=== PATIENT | female | born 1975 | race Caucasian/White ===

== ENCOUNTER 2023-01-02 03:04 | Emergency (ER) | payer OTHER, SELFPAY ==
[2023-01-02 03:09] VITALS: BP 188/119; PULSE 75; RESP 16; TEMP 35.9; O2SAT 100
--- NOTE | 2023-01-02 03:14 | ED.BACK ---
HPI - Back Pain/Injury General Time Seen by Provider: 03:15 Date Seen: 01/02/23 Chief Complaint: Back Injury/Pain Stated Complaint: back spasm, kidney pain Time Seen by Provider: 01/02/23 03:14 Source: patient and RN notes reviewed Mode of arrival: ambulatory Limitations: no limitations History of Present Illness HPI Narrative: 47-year-old female who comes in today with flank pain/back pain. No known injury. Started shortly prior to coming emergency department. Left-sided, radiates to the left lower quadrant. Nausea without vomiting. No chest pain breathing difficulty, denies fever or urinary symptoms. Distant history of a kidney stone. Related Data Allergies Allergy/AdvReac Type Severity Reaction Status Date / Time nitrofurantoin Allergy Severe Verified 01/02/23 04:26 [From Macrobid] [facility] Social History Non-prescribed substance use: denies use service: No Exam Narrative: Exam Narrative: General: Well-developed and well-nourished, appears uncomfortable Head: Atraumatic and normocephalic Eyes: Pupils are equal reactive, extraocular motions intact, conjunctiva clear ENT: External nose and ears are normal, posterior pharynx without erythema or exudate Neck: No midline cervical tenderness, full spontaneous range of motion the neck, trachea midline, no adenopathy Heart: Regular rate and rhythm no murmurs or thrills Lungs: Clear to auscultation bilaterally without wheezes or crackles Abdomen: Soft, nontender, nondistended with active bowel sounds. Left CVA tenderness. Musculoskeletal: No tenderness, deformity, or edema Neurologic: Awake, alert, and oriented x3, no gross focal neurologic deficits, cranial nerves intact as tested Psych: Mood and affect are appropriate Skin: No rashes Const: Vital Signs, click to edit/add: Vital Signs - 24 hr 01/02/23 03:09 01/02/23 04:26 Temperature 96.6 F L Pulse Rate [Left P ulse Oximeter] 75 68 Respiratory Rate 16 18 Blood Pressure [Ri ght Upper Arm] 188/119 H 178/103 H Pulse Oximetry 100 98 Oxygen Delivery Me thod Room Air Room Air Course Course ED Course: Patient seen and examined, prior records reviewed. Patient presents today with left-sided flank pain, accompanied by nausea. Appears uncomfortable on initial exam. CVA tenderness. Symptoms are most consistent with kidney stone, consider aortic pathology although less likely, also consider musculoskeletal pain. Labs and CT scan ordered along with Toradol and Zofran. Reevaluation(s) Time of Reevaluation #1: 03:46 Reevaluation #1: Labs independently interpreted by me with normal CBC. CT scan of abdomen pelvis independently interpreted by me with mild hydronephrosis and hydroureter on the left, 4 mm stone of the distal ureter near the UVJ. Time of Reevaluation #2: 04:34 Reevaluation #2: Urinalysis does not demonstrate any findings infection. Patient is stable for discharge with outpatient follow-up. Vital Signs Vital signs: Initial Vital Signs Temperature 96.6 F L 01/02/23 03:09 Temperature Source Temporal Artery Scan 01/02/23 03:09 Pulse Rate 75 01/02/23 03:09 Pulse Rhythm Regular 01/02/23 03:09 Respiratory Rate 16 01/02/23 03:09 Blood Pressure 188/119 H 01/02/23 03:09 Blood Pressure Mean 142 H 01/02/23 03:09 Blood Pressure Position Sitting 01/02/23 03:09 Pulse Oximetry 100 01/02/23 03:09 Oxygen Delivery Method Room Air 01/02/23 03:09 Vital Signs Temperature 96.6 F L 01/02/23 03:09 Pulse Rate 75 01/02/23 03:09 Respiratory Rate 16 01/02/23 03:09 Blood Pressure 188/119 H 01/02/23 03:09 Pulse Oximetry 100 01/02/23 03:09 Oxygen Delivery Method Room Air 01/02/23 03:09 Temperature 96.6 F L 01/02/23 03:09 Pulse Rate 68 01/02/23 04:26 Respiratory Rate 18 01/02/23 04:26 Blood Pressure 178/103 H 01/02/23 04:26 Pulse Oximetry 98 01/02/23 04:26 Oxygen Delivery Method Room Air 01/02/23 04:26 Medications Administered Medications: Generic Name Dose Route Start Last Admin Trade Name Freq PRN Reason Stop Dose Admin Ketorolac Tromethamine 15 mg 01/02/23 03:20 01/02/23 03:34 Ketorolac 15 Mg/Ml Inj IVP 01/02/23 03:21 15 mg ONCE ONE Administration Ondansetron HCl 4 mg 01/02/23 03:20 01/02/23 03:34 Ondansetron 2 Mg/Ml Inj IVP 01/02/23 03:21 4 mg ONCE ONE Administration Ondansetron HCl 4 mg 01/02/23 04:14 01/02/23 04:24 Ondansetron 2 Mg/Ml Inj IVP 01/02/23 04:15 4 mg ONCE ONE Administration Oxycodone HCl 5 mg 01/02/23 04:14 01/02/23 04:24 Oxycodone 5 Mg Tablet PO 01/02/23 04:15 5 mg ONCE ONE Administration MDM - Back Pain/Injury Lab Data Labs: Lab Results 01/02/23 01/02/23 Range/Units 03:25 03:55 WBC 8.76 (4.50-11.00) K/uL RBC 4.40 (4.00-5.20) m/uL Hgb 13.9 (12.0-16.0) gm/dL Hct 40.2 (33.0-51.0) % MCV 91 (80-100) fL MCH 32 (26-34) pg MCHC 35 (32-36) gm/dL RDW Coeff of Marly 11.9 (11.5-15.5) % Plt Count 302 (140-440) K/uL Neut % (Auto) 49.3 (42.0-72.0) % Lymph % (Auto) 37.8 (20-44) % [place] % (Auto) 10.4 (0.0-11.0) % Eos % (Auto) 2.1 (0.0-7.0) % Baso % (Auto) 0.2 (0.0-3.0) % Neut # (Auto) 4.32 (1.7-7.0) K/uL Lymph # (Auto) 3.31 H (0.90-2.90) K/uL [place] # (Auto) 0.90 (0.00-0.90) K/UL Eos # (Auto) 0.18 (0.00-0.50) K/uL Baso # (Auto) 0.02 (0.00-0.30) K/uL Abs Immat Gran (auto) 0.02 (0.00-0.30) K/uL Imm/Tot Granulo (auto) 0.2 % Sodium 140 (135-149) mmol/L Potassium 3.4 L (3.6-5.1) mmol/L Chloride 101 (96-114) mmol/L Carbon Dioxide 29 (20-32) mmol/L Anion Gap 10 (7-15) mEq/L BUN 17 (5-24) mg/dL Creatinine 0.9 (0.5-1.5) mg/dL Estimated GFR 79 ml/min Glucose 123 H (60-115) mg/dL Calcium 9.5 (8.4-10.6) mg/dL Urine Color Yellow (Yellow) Urine Appearance Slightly Cloudy A (Clear) Urine pH 7.0 (5.0-8.5) Ur Specific [place] 1.020 (1.000-1.030) Urine Protein Negative (Negative) Urine Glucose (UA) Negative (Negative) Urine Ketones Negative (Negative) Urine Blood 2+ A (Negative) Urine Nitrite Negative (Negative) Urine Bilirubin Negative (Negative) Urine Urobilinogen 0.2 (0.2-1.0) Ur Leukocyte Esterase Negative (Negative) Urine RBC 25-50 A (0-2) Urine WBC 5-10 A (0-5) Ur Squamous Epith Cells Moderate A (None-Few) Urine Bacteria Few A (None) Discharge Plan Discharge Clinical Impression: Left ureteral stone Patient Disposition: Home, Self-Care Condition: Stable Instructions: Ureteral Stones (ED) Additional Instructions: Take ibuprofen 600 mg every 6 hours alternating with Tylenol 1000 mg every 6 hours for baseline pain control. Take this regularly for the next couple of days until you pass your stone. Take oxycodone as needed for severe pain, take Zofran as needed for nausea and vomiting. Drink to thirst Follow-up with urology for further evaluation treatment. [facility] [place] [facility] [phone] Activity Level: Activity as Tolerated Discharge Diet: Regular Follow Up/Referrals: SHI WYMAN DO [Primary Care Provider] - Stand Alone Forms[facility]
--- NOTE | 2023-01-02 03:20 | CRLHL7_ITS ---
For Patients: As a result of the Century Cures Act, medical imaging exams and procedure reports are released immediately into your electronic medical record. You may view this report before your referring provider. If you have questions, please contact your health care provider. INDICATION: Left flank pain. TECHNIQUE: CT abdomen and pelvis without contrast. COMPARISON: None. FINDINGS: Lower chest: Unremarkable. Liver: Normal in size and attenuation. Gallbladder and bile ducts: No stones or inflammation. No biliary ductal dilatation. Spleen: Normal in size. Adrenal glands: Normal in size. No nodules. Pancreas: Unremarkable. No mass or inflammation. Kidneys: 5 x 3 mm calculus in the left distal ureter. Mild upstream hydroureteronephrosis. Right kidney is unremarkable. GI tract: Scattered colonic diverticula without evidence of diverticulitis. No evidence of obstruction. Normal appendix. Lymph nodes: No lymphadenopathy. Vasculature: Scattered atherosclerotic calcifications. Abdominal aorta is normal in caliber. Abdominal wall/Omentum/Peritoneum: Unremarkable. No free air or significant free fluid. Pelvis: Unremarkable. Bones: Unremarkable for age. IMPRESSION: 5 x 3 mm left distal ureteral calculus with mild upstream hydroureteronephrosis. Please note that all CT scans at this facility use dose modulation, iterative reconstruction, and/or weight-based dosing when appropriate to reduce radiation dose to as low as reasonably achievable. Dictated by Krzysztof Armenta MD @ 01/02/2023 3:54:35 AM (Electronically Signed)
[2023-01-02 03:32] LABS: Basophils Absolute Auto 0.02 K/uL (0.00-0.30); Basophils Percent Auto 0.2 % (0.0-3.0); Eosinophils Absolute Auto 0.18 K/uL (0.00-0.50); Eosinophils Percent Auto 2.1 % (0.0-7.0); Hematocrit 40.2 % (33.0-51.0); Hemoglobin* 13.9 gm/dL (12.0-16.0); Immature Granulocytes Abs Auto 0.02 K/uL (0.00-0.30); Immature Granulocytes Pct Auto 0.2 %; Lymphocytes Absolute Auto 3.31 K/uL (0.90-2.90); Lymphocytes Percent Auto 37.8 % (20-44); Mean Corpuscular HGB Conc 35 gm/dL (32-36); Mean Corpuscular Hemoglobin 32 pg (26-34); Mean Corpuscular Volume 91 fL (80-100); Monocytes Percent Auto 10.4 % (0.0-11.0); Neutrophils Absolute Auto 4.32 K/uL (1.7-7.0); Neutrophils Percent Auto 49.3 % (42.0-72.0); Platelet Count* 302 K/uL (140-440); RDW Coefficient of Variation % 11.9 % (11.5-15.5); White Blood Count* 8.76 K/uL (4.50-11.00)
[2023-01-02] MEDS: ONDANSETRON 2 MG/ML inj 4 MG IVP ×2 (03:34→04:24)
[2023-01-02] MEDS: KETOROLAC 15 MG/ML inj IVP (03:34)
[2023-01-02 03:35] LABS: Slide Review Reflex No
[2023-01-02 03:43] LABS: Chloride* 101 mmol/L (96-114); Sodium* 140 mmol/L (135-149)
[2023-01-02 03:44] LABS: Potassium* 3.4 mmol/L (3.6-5.1)
[2023-01-02 03:46] LABS: Creatinine* 0.9 mg/dL (0.5-1.5); Estimated Glomerular Filt Rate 79 ml/min
[2023-01-02 03:47] LABS: Anion Gap 10 mEq/L (7-15); Blood Urea Nitrogen* 17 mg/dL (5-24); Calcium* 9.5 mg/dL (8.4-10.6); Carbon Dioxide* 29 mmol/L (20-32); Glucose* 123 mg/dL (60-115)
[2023-01-02 04:06] LABS: Appearance Urine Slightly Cloudy (Clear); Bilirubin Urine Negative (Negative); Blood Urine 2+ (Negative); Color Urine Yellow (Yellow); Glucose Urine Negative (Negative); Ketones Urine Negative (Negative); Leukocyte Esterase Urine Negative (Negative); Nitrite Urine Negative (Negative); Protein Urine Negative (Negative); Urobilinogen Urine 0.2 (0.2-1.0)
[2023-01-02 04:21] LABS: Bacteria Urine Few; RBC Urine 25-50 (0-2); Squamous Epithelial Cell Urine Moderate (None-Few)
[2023-01-02] MEDS: OXYCODONE 5 MG TABLET PO (04:24)
[2023-01-02 04:26] VITALS: BP 178/103; PULSE 68; RESP 18; O2SAT 98
== END 2023-01-02 05:25 | disposition home or self-care (01) ==
PROVIDERS: Emergency Provider Family Medicine; PCP Student in an Organized Health Care Education/Training Program
DX: N20.1 Calculus of ureter (principal)
CPT/HCPCS: 36415; 74176; 80048; 81001; 85025; 87086; 96374; 96375; 96376; 99284; A9270; J1885; J2405

== ENCOUNTER 2024-06-24 19:54 | Emergency (ER) | payer BC, SELFPAY ==
--- OUTSIDE RECORDS SUMMARY | 2024-06-24 19:58 | XMS_ITS | Data Portability ---
Author Organization [place] [facility] Address [address] [place] [address] Care Team Providers Care Clinical Research Nurse Name Role Phone RUTHIE PEREZ Primary Care Provider [phone] Assessment Encounter Date Assessment Date Assessment LastModified by Organization Details LastModified Time 01/30/2024 01/30/2024 This visit was performed via Veniti device with a total face to face time of 13 minutes. This patient is being seen today for a [facility] appointment after hospitalization. Reason for admission: prolactinoma I have reviewed the external medical [facility]: [facility] Specifically, the data/test result/record I reviewed was: ____discharge instructions __. The following comorbid health conditions pertinent to this [facility] visit were discussed, diagnoses were added, and current status documented: pituitary adenoma Vital signs have been reviewed: stable The patient needs a follow up appointment with neurosurgeon Pt to call friday to inquire about follow up SSMILE High Risk area for hospital readmission *SYMPTOMS Does the patient have ongoing or worsening symptoms? No, low risk for readmission. *SKILLED NEEDS Does the patient have unaddressed skilled needs? No, low risk for readmission. *MEDICATIONS Is the patient/caregiver able to describe current medication management strategy? Yes, low risk for readmission. Reconciliation and Management: Hard copy discharge medication list provided by patient was reviewed and reconciled during this encounter with patient's current medications. A face to face medication reconciliation was completed during today's visit. No changes were made to the patient's medication regimen today The patient understands how to take their new medications. The patient verbalized understanding of the dosage and timing of their medications and understands the need to take their medications as prescribed. I had the opportunity to answer any questions regarding their medications. *INFORMATION Does the patient/caregiver /MPOA have understanding of disease/discharge information/treat ment plan/red flag symptoms? Yes, low risk for readmission. *LINKED UP Does the patient understand the appropriate providers to follow up with: Yes, low risk for readmission. Does the patient have access to healthcare, food, social support? Yes, low risk for readmission. Resources available through [facility]. *ENGAGEMENT Is the patient/caregiver /MPOA engaged in the care plan? Yes, low risk for readmission. After reviewing records, medications, understanding for the plan of care, physical exam, and SSMILE Risk score, and it is determined the patient is safe to remain at home and is left in stable condition. Additional patient instructions: Follow-up recommendations: Advised to monitor their symptoms closely including for signs of infection , to take their regular daily medications as prescribed, practice fall precautions, and schedule follow up with neurosurgeon. The patient is advised to seek immediate evaluation with their [facility]CP, [facility], or in the ER for new or worsening symptoms. The patient verbalizes understanding and agrees with the plan. Notes from the visit were sent to the patient's PCP. Time On Scene with Patient: 01:03:23 [email or web address] Not available 01/30/2024 18:16:29 Plan of Treatment Reminders Order Date Submit Date Provider Last Modified By Organization Details Last Modified Time Details Appointments None record ed. Lab None record ed. Referral None record ed. Procedures None record ed. Surgeries None record ed. Imaging None record ed. Medication Orders None record ed. Patient TargetsNo targets recorded. Patient Instructions Encounter Date Encounter Id Patient Instructions Last Modified By Organization Details Last Modified Time 01/30/2024 [id number] - YOU WERE SEEN TODAY FOR HOSPITAL DISCHARGE FOLLOW UP - CONTINUE YOUR MEDICATIONS PRESCRIBED - BE SURE TO FOLLOW UP WITH PRIMARY CARE AND SPECIALISTS SCHEDULED - MONITOR SYMPTOMS CLOSELY It was great to see you today! Thank you for letting [facility] follow up with you after your hospitalization today. If you are noticing a change in your symptoms between the hours of 8am and 9pm, and cannot follow up with your PCP please [facility]. Please present to the nearest EMERGENCY ROOM if you are experiencing any of the following: - worsening pain - fever above 101.0F despite using Tylenol (acetaminophen) - shortness of breath - chest pain or pressure - any symptom or concern that requires immediate evaluation [email or web address] Not available 01/30/2024 16:32:55 Reason for Referral None Reported. Procedures Surgical History Date Name Laterality Status Provider Name and Address Organization Details Recorded Time 01/30/20 24 Medication Review completed Lilli Stanford NP [address] [facility] ,[address], [place], [address], [place] [facility] 01/30/2024 18:14:00 section completed Brittany Serna [place] [facility] 01/30/2024 16:27:15 hernia repair completed Brittany Serna [place] [facility] 01/30/2024 16:27:27 ligation of fallopian tube completed Brittany Serna [place] [facility] 01/30/2024 16:27:34 excision of benign neoplasm completed [facility] [place] [facility] 01/30/2024 16:28:36 operation on extraocular muscle completed [facility] [place] [facility] 01/30/2024 16:31:45 Imaging Results None recorded. Procedure Notes None recorded. Medical Equipment None Reported. Allergies Allergen ID Allergen Name Allergen Category Reaction Reaction Severity Criticality Documentation Date Start Date Code Code System Note Provider Name and Address Organization Details Recorded Time 538559 nitrofura ntoin medicatio n rash mild low 01/30/2024 7454 [facility]Norm Brittany Daphne null, [place] [facility] 16:17:28 Medications Name Sig Start Date Stop Date Status Note LastModified by Organization Details LastModified Time dicloxacill in 500 mg capsule TAKE 1 CAPSULE (500 MG) BY MOUTH FOUR TIMES DAILY BEFORE MEALS AND AT BEDTIME FOR 10 DAYS. 01/29 completed Not Available Not Available Not Available doxycycline hyclate 100 mg capsule TAKE 1 CAPSULE BY MOUTH TWO TIMES DAILY FOR 7 DAYS. 01/29 completed Not Available Not Available Not Available ammonium lactate 12 % lotion APPLY 1-2X DAILY TO THE AFFECTED AREAS ON THE LOWER LEGS, ONGOING active Not Available Not Available No t Available valacyclovi r 1 gram tablet TAKE 1 TABLET (1 G) BY MOUTH THREE TIMES DAILY FOR 14 DAYS. 01/29 completed Not Available Not Available Not Available phenazopyri dine 200 mg tablet TAKE 1 TABLET (200 MG) BY MOUTH THREE TIMES DAILY AFTER MEALS FOR 2 DAYS. 01/29 completed Not Available Not Available Not Available ondansetron HCl 4 mg tablet active Not Available Not Available Not Available phentermine 15 mg capsule TAKE 1 CAPSULE (15 MG) BY MOUTH ONCE DAILY BEFORE A MEAL. 01/29 completed Not Available Not Available Not Available tretinoin 0.05 % topical cream APPLY A PEA SIZED AMOUNT TO ENTIRE FACE EVERY OTHER NIGHT INCREASIN G TO NIGHTLY TOLERATED . active Not Available Not Available No t Available triamcinolo ne acetonide 0.1 % topical cream PLEASE SEE ATTACHED FOR DETAILED DIRECTION S active Not Available Not Available No t Available meloxicam 7.5 mg tablet TAKE 1 TABLET BY MOUTH ONCE DAILY. 01/29 completed Not Available Not Available Not Available oxycodone-a cetaminophe n 5 mg-325 mg tablet TAKE 1 TABLET BY MOUTH EVERY 6 HOURS NEEDED FOR PAIN 01/29 completed Not Available Not Available Not Available alprazolam 0.25 mg tablet TAKE 1 TABLET (0.25 MG) BY MOUTH EVERY 8 HOURS IF NEEDED FOR ANXIETY. active Not Available Not Available No t Available triamcinolo ne acetonide 0.1 % dental paste APPLY A THIN LAYER NEEDED active Not Available Not Available No t Available cephalexin 500 mg capsule TAKE 1 CAPSULE BY MOUTH TWO TIMES DAILY FOR 7 DAYS. 01/29 completed Not Available Not Available Not Available erythromyci n 5 mg/gram (0.5 %) eye ointment APPLY TO THE INCISION 3 TIMES A DAY AND 1/4 INCH INTO THE EYE AT BEDTIME active Not Available Not Available No t Available cabergoline 0.5 mg tablet TAKE ONE-HALF TABLET (0.25MG) BY MOUTH TWO TIMES A WEEK, TAKE AT BEDTIME WITH A SNACK 01/29 completed Not Available Not Available Not Available losartan 25 mg tablet TAKE 1 TABLET BY MOUTH EVERY DAY active Not Available Not Available No t Available gabapentin 300 mg capsule TAKE 1 CAPSULE BY MOUTH 3 TIMES DAILY IF NEEDED FOR NERVE PAIN, SHINGLES 01/29 completed Not Available Not Available Not Available sertraline 25 mg tablet TAKE 1 TABLET BY MOUTH EVERY MORNING 01/29 completed Not Available Not Available Not Available hydrochloro thiazide 25 mg tablet TAKE 0.5 TABLETS BY MOUTH ONCE DAILY. active Not Available Not Available No t Available hydrocortis one 10 mg tablet TAKE 2 TABS (20MG) BY MOUTH DIRECTED. 10MG AM+10MG PM-DOUBLE DURING ILLNESS. 200 TABS/90 DAYS active Not Available Not Available No t Available doxycycline hyclate 100 mg tablet TAKE 1 TABLET (100 MG) BY MOUTH TWO TIMES DAILY BEFORE MEALS FOR 7 DAYS. 01/29 completed Not Available Not Available Not Available amoxicillin 875 mg-potassiu m clavulanate 125 mg tablet TAKE 1 TABLET BY MOUTH TWICE A DAY WITH MEALS FOR 5 DAYS 01/29 completed Not Available Not Available Not Available oxycodone 5 mg tablet active Not Available Not Available No t Available escitalopra m 5 mg tablet TAKE 1 TABLET (5 MG) BY MOUTH ONCE DAILY IN THE MORNING. 01/29 completed Not Available Not Available Not Available acetaminoph en active Not Available Not Available Not Available sennosides- docusate sodium active Not Available Not Available Not Available Reusable Nebulizer Kit USE NEEDED WITH ALBUTEROL active Not Available Not Available No t Available Qsymia 7.5 mg-46 mg capsule, extended release TAKE 1 CAPSULE BY MOUTH EVERY DAY 01/29 completed Not Available Not Available Not Available Vitals Date Recorded Body temperature Heart rate Respiratory rate Oxygen saturation Oxygen saturation in Arterial blood by Pulse oximetry Systolic blood pressure Diastolic blood pressure Systolic blood pressure Diastolic blood pressure Provider Name and Address Organization Details Last Updated DateTime 4 97.8 [degF] 85 /min 16 /min 98 % 98 % 132 mm[Hg] 82 mm[Hg] 122 mm[Hg] 80 mm[Hg] Not Available [facility] 16:39:39 Social History Question Answer Notes LastModified by Organizat ion Details LastModified Time Tobacco Smoking Status Former Smoker Brittany Daphne gibson, [place] [facility] 01/30/2024 16:25:25 Do You Have An Advance Directive? Yes [email or web address] Information n ot available 01/30/2024 What Is Your Level Of Alcohol Consumption? None [email or web address] Information not available 01/30/2024 Is Blood Transfusion Acceptable In An Emergency? Yes [email or web address] Information not available 01/30/2024 What Is Your Code Status? Full Code [email or web address] Information not available 01/30/2024 Do You Have A Directive To Physicians? Yes [email or web address] Information not available 01/30/2024 Within The Past 12 Months, Has It Happened That The Food You Bought Just Didn't Last And You Didn't Have Money To Get More. Never True Information not available 01/30/2024 Within The Past 12 Months, Have You Worried That Your Food Would Run Out Before You Got Money To Buy More. Never True [email or web address] Information n ot available 01/30/2024 Fall Risk: Do You Feel Unsteady When Standing Or Walking? No Information not available 01/30/2024 We Know That How And When People Interact With Friends And Family Can Be Very Different From Person To Person. How Often Do You Have The Opportunity To See Or Talk To People That You Care About And Feel Close To? (Ex: Talking To Friends On The Phone Or Visiting Friends Or Family Or Going To [employer] Or Club Meetings) More Than 3 Times A Week Information not available 01/30/2024 Excessive Alcohol Or Drug Use No [email or web address] Information not available 01/30/2024 Does This Patient Have A PCP? Yes [email or web address] Information not available 01/30/2024 Has The Patient Seen Their PCP In The Past 6 Months? Yes [email or web address] Information n ot available 01/30/2024 Is This Patient In Hospice? No [email or web address] Information not available 01/30/2024 ADL: Do You Need Help With Daily Activities Such As Bathing, Preparing Meals, Dressing, Or Cleaning? No [email or web address] Information not available 01/30/2024 Social Support: Do You Feel Safe? Yes [email or web address] Information not available 01/30/2024 In The Past 12 Months, Has Lack Of Transportation Kept You From Medical Appointments? No [email or web address] Information not available 01/30/2024 In The Past 12 Months, Has Lack Of Transportation Kept You From Non-medical Needs? No [email or web address] Information n ot available 01/30/2024 What Is Your Housing Situation Today? I Have Housing [email or web address] Information not available 01/30/2024 Do You Have A Medical Power Of Manager [employer]? No [email or web address] Information not available 01/30/2024 Do You Have An Out Of Hospital DNR? No [email or web address] Information not available 01/30/2024 Do You Use Any Illicit Or Recreational Drugs? No Information not available 01/30/2024 Do You Or Have You Ever Used Any Other Forms Of Tobacco Or Nicotine? No [email or web address] Information not available 01/30/2024 Sex: Unknown Functional Status None recorded. Mental Status None recorded. Family History Relationship Description Onset Age of this Age Resolved Age Notes LastModified by Organization Details LastModified Time Father Hypertensive disorder Not available 2023 16:23:52 Father Prediabetes [email or web address] Not availa ble 01/30/2024 16:24:02 Father Congestive heart failure [email or web address] Not available 2023 16:24:11 Brother History of heart disorder [email or web address] Not available 2023 16:25:07 Medical History Condition Response Diabetes N Coronary Artery Disease N CHF N Parkinson's Disease N Cancer N Stroke N Dementia N Hypothyroidism N Asthma Y COPD N Depression Y High Cholesterol N Rheumatoid Arthritis N Pulmonary Embolism N Hypertension Y Osteoporosis N A-fib N Kidney Disease N Gynecological HistoryNo gynecological history recorded. 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 Undete rmined: Unclear staging of condition. Needs further evaluation and management by PCP and/or Specialist }}. Testing/Re sults:none Discussion , Plan & Management :-monitor for s/s of complicati on-f/u with neurosurge on Health Concerns Section Related Observation LastModified by Organization Detai ls LastModified Time None Recorded Concern Status LastModified by Organization Details LastModified Time None Recorded Advance Directives Directive Y: Payers Encounter Date Sequence Insurance Name Policy Number Policy Silva Covered Member ID Silva Member ID Guarantor Name 01/30/2024 1 [employer] [employer] (HMO) [id number] Pascale Abdi [id number] Pascale Abdi Notes Date Note Type Note Provider Name and Address Organization Details Recorded Time 4 text/html This patient being seen for a [facility] appointment following hospitalization at:[facility] 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 While in the hospital, the patient had a tumor removedNewly prescribed medications: hydrocortisone dose increased Since discharge, the patient has been resting and trying to prevent any sort of pressure in her head, pt reports headaches, loss of taste, stuffy, fatigued Lilli Stanford, ASSURANCE ASSISTANT [address] [facility] ,[address], [place], [address], [place] [facility] 01/30/2024 18:17:17 OBGyn Episode No OBEpisode recorded.
--- OUTSIDE RECORDS SUMMARY | 2024-06-24 19:58 | XMS_ITS | Clinical Summary ---
Author Organization [facility] Address [address] [place] [address] Care Team Providers Care Central Office Maintainer Name Role Phone Juan Jose Mercer MD Primary Care Provider [phone] Allergies Active Allergy Reactions Criticality Noted Date Comments Nitrofurantoin Monohyd/M-Cryst Rash,*Unknown Medications ZOLMitriptan (ZOMIG-ZMT) 2.5 mg disintegrating tabletIndications: Migraine with aura and without status migrainosus, not intractable Place 1 Tablet (2.5 mg) on the tongue every 2 hours if needed for Migraine. Give at minimum 2hrs apart. Max Dose: 10mg per 24hrs. 10 tablet. 5 02/20/20 21 Active ondansetron (ZOFRAN) 4 mg tabletIndications: Nausea Take 1 Tablet (4 mg) by mouth every 8 hours if needed for Nausea/Vomitin g. 30 Tablet 07/25/19 22 Active albuterol HFA (ProAir HFA) 90 mcg/actuation inhalerIndications :SOB (shortness of breath) Inhale 1-2 Puffs by mouth every 6 hours if needed for Shortness of Breath 1st choice. 1 Each 04/01/19 23 Active albuterol (PROVENTIL) 0.083 % neb solutionIndication s:SOB (shortness of breath) Inhale 3 mL (2.5 mg) via a nebulizer every 6 hours if needed for Cough 1st choice. 180 mL 04/01/19 23 Active nebulizer accessories kitIndications:SOB (shortness of breath) For home use. Length of need: prn with albuterol Please provide tubing and mask for neb kit. 1 Kit 08/15/19 24 Active ALPRAZolam (XANAX) 0.25 mg tabletIndications: Anxiety TAKE 1 TABLET (0.25 MG) BY MOUTH EVERY 8 HOURS IF NEEDED FOR ANXIETY. 30 Tablet 11/14/19 24 Active beclomethasone dipropionate (QNASL) 40 mcg/actuation HFAAIndications:Ac amanda recurrent sinusitis, unspecified location Administer one actuation into affected nostril daily as needed. 1 Each 5 12/26/19 24 Active losartan (COZAAR) 25 mg tabletIndications: Hypertension TAKE 1 TABLET BY MOUTH EVERY DAY 90 Tablet 2 02/12/20 24 Active hydroCHLOROthiazid e 25 mg tabletIndications: Hypertension Take 1 Tablet (25 mg) by mouth once daily. 90 Tablet 1 05/03/19 25 Active Phentermine HCl 30 mg capsuleIndications :Overweight,Weight loss advised Take 1 Capsule (30 mg) by mouth once daily before a meal. 30 Capsule 2 06/09/19 25 Active phentermine-topira mate 7.5-46 mg (Qsymia) 7.5-46 mgIndications:Over weight,Weight loss advised TAKE 1 CAPSULE BY MOUTH EVERY DAY 30 Capsule 2 05/18/19 25 025 Discontin ued(*Medi cation adjustmen t) Active Problems Problem Noted Date Diagnosed Date CKD (chronic kidney disease), stage II 4 Secondary adrenal insufficiency 10/03/2022 Overview (10/03/2022): [facility] Dr. Solano Pap smear for cervical cancer screening 09/25/19 23 Overview (11/04/2022): 09/2022 NIL/HPV negative. Plan: Pap/HPV due 09/2027. 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 Chronic headaches 10/15/2021 Anxiety 10/15/2021 Anal skin tag 08/22/2021 Bleeding internal hemorrhoids 08/22/2021 Vitamin D deficiency 01/07/2018 Hypertension 01/06/2018 Impaired fasting glucose 01/06/2018 Family history of heart disease 11/18/2016 Environmental allergies 03/09/2012 Overview (08/22/2021): Molds Resolved Problems Problem Noted Date Diagnosed Date Resolved Date Encounter for screening colonoscopy 01/15/2023 04/14/2023 History of vitamin D deficiency 01/06/2018 01/07/2018 Encounters Date Type Department Care Team Description 06/24/2024 Telephone [place] [address] [place] [address] Juan Jose Mercer MD Medication Management (Patient is looking for a new prescription. ) 06/14/2024 Telephone [place] [address] [place] [address] Juan Jose Mercer MD Prior Authorization (phentermine-topiramat e 7.5-46 mg (Qsymia) 7.5-46 mg - EXCLUDED) 06/07/2024 Refill [place] [address] [place] [address] Juan Jose Mercer MD Refill Request (Qsymia) 05/16/2024 Refill [place] [address] [place] [address] Juan Jose Mercer MD Refill Request (Qsymia) 05/07/2024 Telephone [place] [address] [place] [address] Juan Jose Mercer MD Results 05/03/2024 3:25 PM CDT Office Visit [place] [phone] [place] [address] Juan Jose Mercer MD Urinary Problem (Possible uti symptoms x2 weeks ) 05/03/2024 Travel 05/01/2024 Refill [place] [address] [phone] [place] [address] Tacho Goyal MD Refill Request (Hydrochlorothiazide) from Last 3 Months Immunizations Immunization Administration Dates Next Due COVID-19 vaccine (Moderna 100mcg/0.5mL) PF, MDV 05/03/2020,04/05/2020 Influenza RIV4 (Age 18+ Years) PRESERV FREE 09/26 Influenza Virus, Unspecified 11/24/2013,12/26/19 12 Influenza, IIV4 (=>6mos) MDV 11/26/2022 Influenza,CCIIV4 PRESERV FREE 12/05/2019 Tdap 10/16/2022 Family History Medical History Relation Name Comments Coronary artery disease Brother 1 sten ts placed Allergies Brother 2 Asthma Brother 2 Coronary artery disease Father Heart failure Father Hypertension Father Cancer-breast Maternal Aunt Hypertension Mother Anesthesia Problem No Family History Blood Disease No Family History Cancer-colon No Family History Cancer-ovarian No Family History Cancer-prostate No Family History Clotting disorder No Family History Relation Name Status Comments Brother 1 Brother 2 Father Alive Maternal Aunt Mother Alive Social History Tobacco Use Types Packs/Day Years Used Date Smoking Tobacco: Never Passive Smoke Exposure: Never Smokeless Tobacco: Never Tobacco Cessation:Counseling Given: Not Answered Alcohol Use Standard Drinks/Week Comments No 0 (1 standard drink = 0.6 oz pur e alcohol) PHQ-2 Answer Date Recorded PHQ-2 TOTAL SCORE 0 06/06/2023 Social Connections Answer Date Recorded Do you often feel lonely or isolated from those around you? 0 05/03/2024 Financial Resource Strain Answer Date R ecorded Difficulty of Paying Living Expenses 3 05/03/2024 Difficulty of Paying Living Expenses Not on file 05/03/2024 Food Insecurity Answer Date Recorded Do you worry your food will run out before you are able to buy more? 1 05/03/2024 Transportation Needs Answer Date Record ed Does lack of transportation keep you from medica l appointments? 1 05/03/2024 Does lack of transportation keep you from work, meetings or getting things that you need? 1 05/03/2024 Housing Stability Answer Date Recorded What is your housing situation today? 1 05/03/2024 Utilities Answer Date Recorded Do you have trouble paying f or utilities (for example, heat, electricity, water, phone)? 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 Not on file Not on file Not on [employer] Obstetrics History Last Filed Vital Signs Vital Sign Reading Time Taken Comments Blood Pressure 120/70 05/03/2024 3:29 PM CDT Pulse 78 05/03/2024 3:29 PM CDT Temperature 37 C (98.6 F) 05/03/2024 3:29 PM CDT Respiratory Rate 16 03/06/2024 7:04 PM MECHANICAL UNIT REPAIRER Oxygen Saturation 96% 03/06/2024 7:04 PM MECHANICAL UNIT REPAIRER Inhaled Oxygen Concentration - - Weight 67.2 kg (148 lb 1.6 oz) 05/03/2024 3:29 P M CDT Height 163.8 cm (5' 4.5) 12/23/2023 4:22 PM CDT Body Mass Index 25.03 12/23/2023 4:22 PM CDT Plan of Treatment Health Maintenance Due Date Last Done Comments COVID-19 vaccine series ( season) 2023 11/26/2022, 05/03/2020, 04/05/2020 Depression screening for age 12+ 06/05/2024 06/06/2023, 04/15/2023, 04/14/2023, Additional history exists Mammogram for age 45-75 10/05/2024 10/06/19, 06/11/2022, 04/19/2021 Influenza Vaccine (Season Ended) 2024 11/26/2022, 12/05/2019, 10/24/2017, Additional history exists BMI (ht and wt on same day) for age 18+ 12/22/2024 12/23/2023, 11/15/2023, 11/04/2023, Additional history exists Lipids for age 45-75 10/17/2027 10/16/2022, 12/03/2019, 05/26/2019, Additional history exists Pap test for age 21-65 10/17/2027 , 10/16/2022, 12/22/2017, Additional history exists Tetanus booster 10/16/2032 10/16/2022 Colonoscopy through age 75 01/15/2033 01/15/2023 HIV for age 15-65 Completed 10/16/2022 Hepatitis C screening for age 18-79 Completed 10/16/2022 Tdap Completed 10/16/2022 Pneumococcal series for age 6-49 Aged Out No longer eligible based on patient's age to complete this topic Procedures Procedure Name Priority Date/Time Associated Diagnosis Comments URINALYSIS MACROSCOPIC - [facility] ONLY POC DIP (QUEST) Routine 05/03/2024 3:22 PM CDT Dysuria URINE CULTURE Routine 05/03/2024 3:21 PM CDT Dysuria URINALYSIS MICROSCOPIC Routine 05/03/2024 3:21 PM CDT Dysuria XR MAMMO ISAMAR BILAT DIAG ROSY 10/06/2023 2:27 PM CDT Mastitis COLONOSCOPY 01/15/2023 1:40 PM MECHANICAL UNIT REPAIRER LC HIV-1/O/2, 4TH GENERATION Routine 10/16/2022 3:07 PM CDT Screening for HIV (human immunodeficiency virus) LC HCV ANTIBODY RFX TO QUANT PCR Routine 10/16/2022 3:07 PM CDT Need for hepatitis C screening test LIPID PANEL W REFLEX MEASURED LDL Routine 10/16/2022 3:07 PM CDT Screening cholesterol level PRESSING DEPARTMENT SUPERVISOR THIN PREP PAP SCREEN IMAGED Routine 10/16/2022 2:55 PM CDT Cervical cancer screening from Last 3 Months or Most Recently Relevant to Health Maintenance Results * URINALYSIS MACROSCOPIC - [facility] ONLY POC DIP (QUEST) (05/03/2024 3:22 PM CDT) PH 6.0 5.0 - 8.0 [facility] SPECIFIC GRAVITY 1.010 1.001 - 1.035 [facility] GLUCOSE NEGATIVE NEGATIVE [facility] BILIRUBIN NEGATIVE NEGATIVE [facility] KETONES NEGATIVE NEGATIVE [facility] OCCULT BLOOD NEGATIVE NEGATIVE [facility] PROTEIN NEGATIVE NEGATIVE [facility] NITRITE NEGATIVE NEGATIVE [facility] LEUKOCYTE ESTERASE NEGATIVE NEGATIVE [facility] Urine URINE SPECIMEN / Unknown 05/03/2024 3:22 PM CDT 05/03/2024 3:23 PM CDT Juan Jose Mercer MD URINE Final Resul t Performing Organization Address City/[facility]/ZIP Co de Phone Number [facility] [address] [place] [address], [facility] [address] [facility], [place] [address] * URINALYSIS MICROSCOPIC (05/03/2024 3:21 PM CDT) RBC 0-2 0-2, None Seen /HPF 05/04/2024 12:30 AM CDT [facility] WBC 3-5 0-2, 3-5, None Seen /HPF 05/04/2024 12:30 AM CDT [facility] BACTERIA None Seen None Seen, Rare, Few Bacteria/ HPF 05/04/2024 12:30 AM CDT [facility] EPITHELIAL CELLS None Seen None Seen, Few Epi/HPF 05/04/2024 12:30 AM CDT [facility] HYALINE CASTS 0-2 0-2, 3-5 /LPF 05/04/2024 12:30 AM CDT [facility] Urine URINE SPECIMEN / Unknown Non-Blood / Unknown 05/03/2024 3:21 PM CDT 05/03/2024 3:21 PM CDT us Juan Jose Mercer MD URINE Final Resul t [facility] [address] [place] [address], [place] * (ABNORMAL) URINE CULTURE (05/03/2024 3:21 PM CDT) CULTURE RESULT(A) 05/06/2024 7:08 AM CDT [facility] CULTURE 10,000-50,000 CFU/mL Escherichia coli 05/06/2024 7:08 AM CDT [facility] Urine URINE SPECIMEN / Unknown Non-Blood / Unknown 05/03/2024 3:21 PM CDT 05/03/2024 3:21 PM CDT Narrative Organism Antibiotic Method Susceptibility Escherichia coli TRIMETHOPRIM/SULF <=1/19: S Escherichia coli AMPICILLIN <=2: S Escherichia coli CEFAZOLIN <=1: S Escherichia coli CEFAZOLIN-UC <=1: S Comment:Cefazolin-UC interpretations are for therapy of uncomplicated UTIs due to E.coli, K.pneumoniae, or P.mirablis. Cefazolin breakpoint is used as a surrogate to predict results for the oral agents - cefdinir, cefuroxime, and cephalexin, when used for therapy of uncomplicated UTIs due to E coli, K, pneumoniae, and P. mirabilis. The FDA recommends cefadroxil susceptibility can be deduced from cefazolin. Escherichia coli GENTAMICIN <=1: S Escherichia coli CEFTRIAXONE <=0.25: S Escherichia coli CEFTAZIDIME <=0.5: S Escherichia coli LEVOFLOXACIN <=0.12: S Escherichia coli CIPROFLOXACIN <=0.06: S Escherichia coli PIPERACILLIN/TAZO <=4: S Escherichia coli AMPICILLIN/SULBACTAM <=2: S Escherichia coli CEFEPIME <=0.12: S Escherichia coli MEROPENEM <=0.25: S Escherichia coli NITROFURANTOIN <=16: S us Juan Jose Mercer MD MICROBIOLOGY Final Resul t [facility] [address] [place] [address], * XR MAMMO ISAMAR BILAT DIAG (10/06/2023 2:27 PM CDT) Anatomical Region Laterality Modality BREASTS, Breast Left, Breast Right Bilateral Mammography Addenda Addendum by Nadine Uribe NP on 10/13/2023 3:08 PM CDT The gram stain showed 3+ PMNs and 1+ RBCs. No epithelial cells or organisms were seen. The final aerobic culture showed 1+ Staphylococcus coagulase negative. No anaerobes were identified on the final anaerobic culture. Clinical followup as directed by JULIEN Hernandez. Impressions 10/07/2023 8:46 AM CDT Complex fluid collection reflecting abscess in the LEFT breast 6 o'clock retroareolar measuring 2.3 x 1.8 x 2.3 cm. There is diffuse duct ectasia with intraductal debris and skin thickening. Aspiration was performed with 4 cc of pus removed. This will be sent for Gram stain and culture. The majority of this collection was unable to be aspirated given the viscosity. Recommend clinical follow-up to resolution and breast surgical consultation. BI-RADS Category 2: Benign Che Aguilar M.D. Diagnostic/Breast Radiologist [email or web address] FABI/omar / PATIENTS: You will also receive a letter with your examination results in an easy to read format. If you have questions about your results, please contact your referring provider. Narrative 10/07/2023 8:46 AM CDT For Patients: As a result of the Century Cures Act, medical imaging exams and procedure reports are released immediately into your electronic medical record. You may view this report before your referring provider. If you have questions, please contact your health care provider. DIGITAL DIAGNOSTIC BILATERAL MAMMOGRAM WITH TOMOSYNTHESIS, 10/06/2023 LEFT BREAST ULTRASOUND WITH ASPIRATION, 10/06/2023 CLINICAL HISTORY: 48-year-old who currently has been on antibiotics with resolving symptoms, here for evaluation. Patient also reports yellowish nipple discharge with expression. COMPARISON: Mammogram 06/11/2022, 04/19/2021. TECHNIQUE: These mammographic images have been obtained using digital technique and interpreted with computer-aided detection. Tomosynthesis utilized. LEFT breast ultrasound performed by the technologist and the radiologist. FINDINGS: The breasts are heterogeneously dense, which may obscure small masses. No suspicious mammographic findings. Slight increased attenuation in the LEFT retroareolar breast without a discrete mass seen mammographically. Ultrasound over the central breast demonstrates skin thickening, duct ectasia with intraductal debris. Complex fluid collection measuring 2.3 x 1.8 cm. Aspiration was performed following informed written and verbal consent. The area was cleansed and prepped in ChloraPrep. 5 cc of Lidocaine was used for local anesthesia. An 18-gauge needle was inserted with 4 cc of pus removed. I was unable to aspirate the majority of the collection given the viscosity. The residual collection measured 2.2 x 1.2 cm. us Lacey Stein MD MAMMO Edited Result - Final * COLONOSCOPY (01/15/2023 1:40 PM MECHANICAL UNIT REPAIRER) 01/15/2023 1:40 PM MECHANICAL UNIT REPAIRER Narrative Transcriptions Lilli Davis DO - 01/15/2023 3:03 PM CST Patient Name: Pascale Abdi Procedure Date: 01/15/2023 Gender: Female Date of : 1975 Admit Type: Ambulatory Procedure: Colonoscopy Proceduralist: Lilli Davis MD Referring MD: Loli Nolen Indications/Pre-Op Diagnosis: Screening for colorectal malignantneoplasm Medications: Propofol per Anesthesia, MonitoredAnesthesia Care Procedure Description: The patient had risks, benefits and alternatives explained to andgave informed consent. The patient had a stable cardiopulmonary status and judged an adequate candidate for conscious sedation. The endoscope -[id number] was passed through the anus andadvanced to the cecum, identified by appendiceal orifice and ileocecal valve.The colonoscopy was somewhat difficult due to significant looping. Successful completion of the procedure was aided by applyingabdominal pressure. The patient tolerated the procedure well. The quality ofthe bowel preparation was excellent. The ileocecal valve, appendiceal orifice, and rectum were photographed. Complications: No immediate complications. Estimated Blood Loss & Specimen: Estimated blood loss: none. Specimen collected - None Findings: Skin tags were found on perianal exam. A few small-mouthed diverticula were found in the sigmoid colon. Non-bleeding internal hemorrhoids were found during digital exam and during endoscopy. The hemorrhoids were mild, small and Grade I(internal hemorrhoids that do not prolapse). The exam was otherwise without abnormality. Impressions/Post-Op Diagnosis: - Perianal skin tags found on perianal exam. - Diverticulosis in the sigmoid colon. - Non-bleeding internal hemorrhoids. - The examination was otherwise normal. - No specimens collected. Recommendation: - Patient has a contact number available for emergencies. The signsand symptoms of potential delayed complications were discussed with the patient. Return to normal activities tomorrow. Written discharge instructions were provided to the patient. - Discharge patient to home (ambulatory). - Resume previous diet. - Continue present medications. - Repeat colonoscopy in 10 years for screening purposes. Lilli Davis MD 01/15/2023 3:03:28 PM This report has been signed electronically. Note Initiated On: 01/15/2023 1:40 PM us Lilli Davis DO PROCEDURE ORD Final Res ult * LC HCV ANTIBODY RFX TO QUANT PCR (10/16/2022 3:07 PM CDT) HCV Ab Non Reactive Non Reactive 10/19/2022 11:08 AM CDT [facility] ([facility]) Blood BLOOD SPECIMEN / Unknown Venipuncture / Unknown 10/16/2022 3:07 PM CDT 10/16/2022 3:09 PM CDT [facility] ([facility]) - 10/19/2022 11:08 AM CDT Performed at: [address] [place] [id number] Instructor Dramatic Arts: Stephon Blas MD, Phone: [phone] Loli Almita Larryqra DO LABORATORY Final Result Performing Organization Address City/[facility]/ZIP Co de Phone Number [facility] TEST[facility] (CET) [address] [place] [address], * LC HIV-1/O/2, 4TH GENERATION (10/16/2022 3:07 PM CDT) HIV Scr 4th Gen Non Reactive Non Reactive 10/20/2022 8:36 AM CDT [facility] ([facility] Comment: HIV Negative HIV-1/HIV-2 antibodies and HIV-1 p24 antigen were NOT detected. There is no laboratory evidence of HIV infection. Blood BLOOD SPECIMEN / Unknown Venipuncture / Unknown 10/16/2022 3:07 PM CDT 10/16/2022 3:[address] [facility]OTERIC TESTING (CET) - 10/20/2022 8:36 AM CDT Performed at: [address] [place] [id number] Instructor Dramatic Arts: Stephon Blas MD, Phone: [phone] Loli Almita Flako DO LABORATORY Final Result Performing Organization Address City/[facility]/ZIP Co de Phone Number [facility] ([facility]ET) [address] [place] [address], * LIPID PANEL W REFLEX MEASURED LDL (10/16/2022 3:07 PM CDT) CHOLESTEROL,TOTAL 178 100 - 199 mg/dL 10/17/2022 5:12 PM CDT [facility] Comment: Cholesterol, Total Reference Ranges Desirable <200 mg/dL Borderline 200-239 mg/dL High >=240 mg/dL TRIGLYCERIDES 140 <150 mg/dL 10/17/2022 5:12 PM CDT [facility] HDL CHOLESTEROL 47 >40 mg/dL 5:12 PM CDT [facility] NON-HDL CHOLESTEROL 131 <145 mg/dl 10/17/2022 5:12 PM CDT [facility] CHOL/HDL RATIO 3.79 <4.50 10/17/2022 5:12 PM CDT [facility] LDL CHOLESTEROL 103 <=130 mg/dL 10/17/2022 5:12 PM CDT [facility] VLDL CHOLESTEROL 28 <=30 mg/dL 10/17/2022 5:12 PM CDT [facility] PROVIDER ORDERED STATUS RANDOM 10/17/2022 5:12 PM CDT [facility] Blood BLOOD SPECIMEN / Unknown Venipuncture / Unknown 10/16/2022 3:07 PM CDT 10/16/2022 3:09 PM CDT us Loli Nolen DO CHEMISTRY Final Result [facility] [address] [place] [address], [place] * PRESSING DEPARTMENT SUPERVISOR THIN PREP PAP SCREEN IMAGED (10/16/2022 2:55 PM CDT) Case Report Gynecologic Cytology Report Case: [id number] Authorizing Provider: Loli Nolen DO Collected: 10/16/2022 1455 Ordering Location: [facility] Received: 10/16/2022 1514 Clinic First Screen: Faviola Cheng Jelani Specimen: PRESSING DEPARTMENT SUPERVISOR ThinPrep Vial Screening, Cervical 10/22/2022 4:08 PM CDT [facility] ENTRAL LABORATORY INTERPRETATION/ RESULT NEGATIVE FOR INTRAEPITHELIAL LESION OR MALIGNANCY (NIL) (none) 10/22/2022 4:08 PM CDT [facility] EN[facility] at 1608 CDT SPECIMEN ADEQUACY Satisfactory for evaluation Endocervical component present 10/22/2022 4:08 PM CDT [facility] HPV REQUEST HPV and PAP 10/22/2022 4:08 PM CDT [facility] Date of LMP N/A (endometrial ablation) 10/22/2022 4:08 PM CDT [facility] Last Pap Date 12/22/17 10/22/2022 4:08 PM CDT [facility] Last Pap Result NIL 4:08 PM CDT [facility] Abnormal Pap or [place] Bx in last 5 years No 10/22/2022 4:08 PM CDT [facility] Menstrual Status Irregular Periods 10/22/2022 4:[address] [facility] [place] Bx Done Today No 10/22/2022 4:08 PM CDT [facility] Additional Information None given 10/22/2022 4:08 PM CDT [facility] Comment: Cytology is screened at [facility] - [address], [place] [address] and [facility] - [address] [place] [place] [address] and [facility] - [address] [place] [address] [facility] - [address], [place] [address] Automated Review Successful 10/22/2022 4:08 PM CDT [facility] Comment:Specimen processed s uccessfully by automated net solutions architect device, ThinPrep Imaging System, [employer] ANCILLARY TESTING PRESSING DEPARTMENT SUPERVISOR HPV Ordered, Please see separate report 10/22/2022 4:[address] [facility] Note The pap test is a screening technique, not a diagnostic procedure. It is used primarily to screen for squamous cancers and precursor lesions. Published studies have shown that it is subject to both false negative and false positive results. The pap test should not be used as the sole means to diagnose or exclude pre-malignant and malignant lesions. 10/22/2022 4:08 PM CDT [facility] Other (Cervical) Non-Blood / Unknown 10/16/2022 2:55 PM CDT 10/16/2022 3:14 PM CDT us Loli Nolen DO PATHOLOGY/CYTOLOGY Final Resu lt [facility] [address] [place] [address], [place] from Last 3 Months or Most Recently Relevant to Health Maintenance Insurance [facility] Advance Directives * Full Code (Latest Code Status on File) Date Activated Date Inactivated Comments 01/15/2023 12:36 PM 01/15/2023 5:25 PM Question Answer Comments Code Status Discussion: Discussed * Full Code Date Activated Date Inactivated Comments 02/14/2022 9:34 AM 02/14/2022 6:13 PM Question Answer Comments Code Status Discussion: Reviewed Preferences Care Teams Central Office Maintainer Relationship Specialty [place] [id number] [address] [phone] PCP - General Family Practice 08/15/23
--- OUTSIDE RECORDS SUMMARY | 2024-06-24 19:59 | XMS_ITS | Clinical Summary ---
Author Organization [facility] Address [address] [place] [address] Care Team Providers Care Car Pusher Name Role Phone Elsewhere, Pcp Primary Care Provider Unavailabl e Source Comments Patient records contain information from all sites at [facility]. For routine questions regarding patient records, call [phone] during business hours, M-F 8:00 AM - 5:00 PM Central Time. Record requests for emergency care only can be directed to [phone] at any time.[facility] Allergies Active Allergy Reactions Criticality Noted Date Comments Nitrofurantoin Monohyd/M-Cryst Rash 05/13 Medications ZOLMitriptan (ZOMIG) 5 mg/act nasal spray Administer 1 spray into affected nostril(s) as needed. 01/08/20 18 Active ZOLMitriptan (ZOMIG) 5 mg tablet Take 5 mg by mouth as needed. Active ZOLMitriptan (ZOMIG-ZMT) 2.[address] 2.5 mg under the tongue as needed. 01/08/20 18 Active hydroCHLOROthiazi de (HYDRODIURIL) 25 mg tablet Take 12.5 mg by mouth daily. 05/08/19 22 Active losartan (Cozaar) 25 mg tablet Take 1 tablet by mouth daily. 08/15/19 24 Active onabotulinumtoxin A (Botox) 100 unit injection Take 100 units every 3 months by injection route as directed, for jaw pain. 10/08/19 24 Active tretinoin (Retin-A) 0.05 % cream Apply 1 Application topically at bedtime as needed. 09/19/19 24 Active loratadine (CLARITIN ORAL) Take 10 mg by mouth daily as needed (allergies). Active erythromycin (Romycin) 5 mg/gram (0.5 %) ophthalmic ointment Apply 1 cm to both eyes every 8 (eight) hours. 01/21/20 Active cabergoline (Dostinex) 0.5 mg tablet Friday + HOLD MEDICATION- FURTHER RECOMMENDATIONS WITH OUTPATIENT ENDO AND F/U PROLACTIN 01/27/20 Active Additional Information Patient not taking.Reported on 04/23/2024 ondansetron (Zofran) 4 mg tablet Take 1 tablet (4 mg total) by mouth every 8 (eight) hours as needed for nausea or vomiting. 20 tablet 4 1:48 PM BUTTERMAKER HELPER 01/27/20 Active oxyCODONE (Roxicodone) 5 mg immediate release tabletIndications :Acute Pain Exception Take 1 tablet (5 mg total) by mouth every 4 (four) hours as needed for pain Indication: Acute Pain Exception. 5 tablet 02/06/20 Active Additional Information Patient not taking.Reported on 04/23/2024 hydrocortisone (Cortef) 10 mg tablet TAKE 2 TABS (20MG) BY MOUTH DIRECTED. 10MG AM+10MG PM-DOUBLE DURING ILLNESS. 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 Solano Chronic Tension Type Headache Not Intractable Deficiency Vitamin D 01/07/2018 Impaired Fasting Glucose 01/06/2018 Anxiety Disorder Unspecified 03/09/2012 Migraine Without Aura Not In tractable Without Status Migrainosus 03/09/2012 Overview (12/28/2023): Rarely with aura Encounters Date Type Department Care Team Description 05/16/2024 Refill Division of Endocrinology in [place], [place] [address] [place] [phone] Gia Solano M.D. Med Refill 04/28/2024 Clinical Communication Division of Endocrinology in [place], [place] [address] [place] [phone] Cecilia Lyon R.N. 04/27/2024 11:45 AM BUTTERMAKER HELPER Office Visit Department of Neurologic Surgery in [place], [place] [address] [place] [phone] Zan Schmidt M.D. Natt, Neena, M.D. Prolactinoma (HCC) (Primary Dx); Neuroma Acoustic (HCC) 04/27/2024 10:30 AM BUTTERMAKER HELPER Office Visit Division of Endocrinology in [place], [place] [address] [place] [phone] Gia Solano M.D. Prolactinoma (HCC) 04/27/2024 6:01 AM BUTTERMAKER HELPER - 04/27/2024 11:59 PM BUTTERMAKER HELPER Hospital Encounter Department of Radiology, [facility] in [place], [place] [address] [place] [phone] Zan Schmidt M.D. Prolactinoma (HCC) Discharge Disposition: Home or Self Care 04/23/2024 4:00 PM BUTTERMAKER HELPER Clinical Communication Virtual Review in [place], [place] [address] [place] [phone] Pre-visit Intake 03/29/2024 11:05 PM BUTTERMAKER HELPER Ancillary Procedure Department of Otorhinolaryngology 03/29/2024 4:30 PM BUTTERMAKER HELPER Office Visit Department of Otorhinolaryngology in [place], [place] [address] [place] [phone] Paloma Kline M.D. Prolactinoma (HCC) (Primary Dx) 03/29/2024 4:15 PM BUTTERMAKER HELPER Ancillary Procedure Department of Otorhinolaryngology from Last 3 Months Immunizations Immunization Administration Dates Next Due Influenza, Injectable, Mdck, Preservative Free, Quadrivalent 12/05/2019 Influenza, Injectable, Quadrivalent 11/26/2022 Influenza, Unspecified 11/24/2013,12/26/2011 Tdap 10/16/2022 influenza trivalent vaccine (6 months and older)(PF) 01/27/2024(Deferred: Patient Refused) influenza vaccine QV(FLUBLOK ) (18 years or older) (PF) 10/24/2017 Family History Medical History Relation Name Comments Hypertension Brother Haroon De La Fuente Defibrillator Father Abelardo De La Fuente Diabetes Father Abelardo De La Fuente Heart failure Father Abelardo De La Fuente Hyperlipidemia Father Abelardo De La Fuente Hypertension Father Abelardo De La Fuente Hypertension Mother Corine De La Fuente Migraines Paternal Grandmother Jenna De La Fuente Relation Name Status Comments Brother Haroon De La Fuente Father Abelardo De La Fuente Mother Corine De La Fuente Paternal Grandmother Jenna De La Fuente Social History Tobacco Use Types Packs/Day Years Used Date Smoking Tobacco: Never Passive Smoke Exposure: Never Smokeless Tobacco: Never Alcohol Use Standard Drinks/Week Comments Never 0 (1 standard drink = 0.6 oz pur e alcohol) [facility] Utilities Answer Date Recorded In the past 12 months has [employer] gas, oil, or water [employer] threatened to shut off services in your home? No 01/26/2024 Humiliation, Afraid, Rape, and Kick questionnair e Answer Date Recorded Within the last year, have y ou been afraid of your partner or ex-partner? No 01/26/2024 Within the last year, have y ou been humiliated or emotionally abused in other ways by your partner or ex-partner? No Within the last year, have y ou been kicked, hit, slapped, or otherwise physically hurt by your partner or ex-partner? No 01/26/2024 Within the last year, have y ou been raped or forced to have any kind of sexual activity by your partner or ex-partner? No 01/26/2024 Social Connection and Isolat ion Panel [NHANES] Answer Date Recorded In a typical week, how many times do you talk on the phone with family, friends, or neighbors? More than three times a week 05/28/2022 How often do you get togethe r with friends or relatives? More than three times a week 05/28/2022 How often do you attend [facility] or buddhist services? More than 4 times per year 05/28/2022 Do you belong to any clubs o r organizations such as jainism groups, unions, fraternal or athletic groups, or school groups? Yes 05/28/2022 How often do you attend meet ings of the clubs or organizations you belong to? More than 4 times per year 05/28/2022 Are you , , di vorced, , never , or living with a partner? 05/28/2022 AUDIT-C Answer Date Recorded Q1: How often do you have a drink containing alc ohol? 2-4 times a month 05/28/2022 Q2: How many drinks containi ng alcohol do you have on a typical day when you are drinking? 1 or 2 05/28/2022 Q3: How often do you have si x or more drinks on one occasion? Never 05/28/2022 Overall Financial Resource Strain (CARDIA) Answe r Date Recorded How hard is it for you to pa y for the very basics like food, housing, medical care, and heating? Not hard at all 05/28/2022 [facility] - Occupational Stress Questionnaire Answer Date Recorded Do you feel stress - tense, restless, nervous, or anxious, or unable to sleep at night because your mind is troubled all the time - these days? Only a little 05/28/2022 Exercise Vital Sign Answer Date Recorde d On average, how many days pe r week do you engage in moderate to strenuous exercise (like a brisk walk)? 4 days 06/22/2023 On average, how many minutes do you engage in exercise at this level? 30 min 06/22/2023 Hunger Vital Sign Answer Date Recorded Within the past 12 months, y ou worried that your food would run out before you got the money to buy more. Never true 01/26/20 24 Within the past 12 months, t he food you bought just didn't last and you didn't have money to get more. Never true 01/26/2024 PRAPARE - Transportation Answer Date Re corded In the past 12 months, has l ack of transportation kept you from medical appointments or from getting medications? No 03/2023 In the past 12 months, has l ack of transportation kept you from meetings, work, or from getting things needed for daily living? No 01/26/2024 Nutrition Answer Date Recorded On average, how many serving s of fruits and vegetables do you eat per day (serving size is equal to 1 cup or approximately the size of a tennis ball)? 0-2 06/22/2023 Dental Answer Date Recorded Dental: Regular Dentist Yes 06/01/19 Employment Answer Date Recorded Employment status Employed and actively working without restrictions 06/22/2023 Housing Stability Answer Date Recorded What is your living situation today? I have a [facility] place to live 01/26/2024 Education Answer Date Recorded What is the highest level of school you have completed or the highest degree you have received? Master's degree (e.g., MA, MS, Ivan, MEd, [employer], HARISH) 05/31/2021 Comments No Sex and Gender Information Value Date Recorded Sex Assigned at Female 05/31/2021 8:48 AM CDT Legal Sex Female 9:24 PM CDT Gender Identity Female 05/31/2021 8:48 AM CDT Sexual Orientation Straight 05/31/2021 8: 48 AM CDT Last Filed Vital Signs Vital Sign Reading Time Taken Comments Blood Pressure 130/93 04/27/2024 10:10 AM BUTTERMAKER HELPER Pulse 86 04/27/2024 10:10 AM BUTTERMAKER HELPER Temperature 36.8 C (98.2 F) 01/27/2024 9:00 AM BUTTERMAKER HELPER Respiratory Rate 16 01/27/2024 9:00 AM BUTTERMAKER HELPER Oxygen Saturation 98% 01/27/2024 9:00 AM BUTTERMAKER HELPER Inhaled Oxygen Concentration - - Weight 68.6 kg (151 lb 3.8 oz) 04/27/2024 10:10 AM BUTTERMAKER HELPER Height 167.1 cm (5' 5.79) 04/27/2024 10:[address] Body Mass Index 24.57 04/27/2024 10:10 AM BUTTERMAKER HELPER Plan of Treatment Health Maintenance Due Date Last Done Comments CT Colonography 1974 Cervical/Vaginal Cancer Screening 1974 Cologuard 1974 FIT 1974 HIV Screening 1974 Hepatitis C Screening 1974 Hepatitis B Vaccines (1 of - + 3-dose series) 1993 COVID-19 Vaccine ( season) 2023 11/26/2022, 05/03/2020, 04/05/2020 Influenza Vaccine (#1) 2023 , 12/05/2019, 10/24/2017, Additional history exists Depression Screening (Annual PHQ-2) 02/25/2024 Office Visit for Blood Pressure Check / Re-check 07/28/2024 04/27/2024 Mammogram 10/05/2024 10/06/2023, 09/24, 06/11/2022, Additional history exists Fasting Glucose for Diabetes Screening 01/26/2025 01/27/2024, 04/14/2023, 10/16/2022, Additional history exists Potassium Level 01/26/2025 01/27/2024, 03/27, 10/16/2022, Additional history exists Creatinine Level (Kidney Function Test) 04/27/2025 04/27/2024, 01/27/2024, 01/23/2024, Additional history exists Sodium Level 04/27/2025 04/27/2024, 01/25, 01/27/2024, Additional history exists Lipid (Cholesterol) Screening 10/17/2027 10/16/2022, 12/03/2019, 05/26/2019, Additional history exists DTaP,Tdap,and Td Vaccines (2 - Td or Tdap) 10/16/2032 10/16/2022 Colonoscopy 01/15/2033 01/15/2023 Colorectal Cancer Screening 01/15/2033 IPV Vaccines Aged Out No longer eligi ble based on patient's age to complete this topic Pneumococcal vaccine (0-49 years) Aged Out No longer eligible based on patient's age to complete this topic Medical Devices Implanted Type Area Occupational Therapy Specialist Device Identifier Shelf Expiration Date Model / Serial / Lot Imaging Marker Imaging Marker Right: Breast Mesh Or Patch Mesh or Patch Abdomen Procedures Procedure Name Priority Date/Time Associated Diagnosis Comments CORTISOL, S Routine 04/27/2024 7:59 AM BUTTERMAKER HELPER Prolactinoma (HCC) CREATININE WITH EGFR, S/P Routine 2024 7:59 AM BUTTERMAKER HELPER Prolactinoma (HCC) T4 (THYROXINE), FREE, S Routine 04/28/19 7:59 AM BUTTERMAKER HELPER Prolactinoma (HCC) PROLACTIN, S Routine 04/27/2024 7:59 AM BUTTERMAKER HELPER Prolactinoma (HCC) SODIUM, S/P Routine 04/27/2024 7:59 AM BUTTERMAKER HELPER Prolactinoma (HCC) MR PITUITARY WITHOUT AND WITH IV CONTRAST RAD - Routine (most inpatients and all outpatients) 04/27/2024 7:32 AM BUTTERMAKER HELPER Prolactinoma (HCC) OTORHINOLARYNGOLOGY IMAGE EXAM Routine 03/29/2024 11:05 PM BUTTERMAKER HELPER OTORHINOLARYNGOLOGY IMAGE EXAM Routine 03/29/2024 4:14 PM BUTTERMAKER HELPER BASIC METABOLIC PANEL, S/P Timed 01/27/2024 6:41 AM BUTTERMAKER HELPER OUTSIDE MG MAMMOGRAM Routine 05/09/2021 2:20 PM CDT from Last 3 Months or Most Recently Relevant to Health Maintenance Results * Prolactin (04/27/2024 7:59 AM BUTTERMAKER HELPER) Prolactin Total 14.7 4.8 - 23.3 ng/mL 04/27/2024 11:16 AM BUTTERMAKER HELPER DTL Comment: ----ADDITIONAL INFORMATION---- The testing method is an electrochemiluminescence assay manufactured by [employer] and performed on the Sherri system. Values obtained with different assay methods or kits may be different and cannot be used interchangeably. Test results cannot be interpreted as absolute evidence for the presence or absence of malignant disease. Blood (Blood, Venous) 04/27/2024 7:59 AM BUTTERMAKER HELPER 04/27/2024 8:39 AM BUTTERMAKER HELPER us Gia Solano M.D. LAB BLOOD ADD-ON Final Result [facility] [address] [place] [address], [facility] [address] [place] [address] * T4 (Thyroxine), Free (04/27/2024 7:59 AM BUTTERMAKER HELPER) T4 (Thyroxine), Free, S 1.1 0.9 - 1.7 ng/dL 04/27/2024 11:16 AM BUTTERMAKER HELPER DT Blood (Blood, Venous) 04/27/2024 7:59 AM BUTTERMAKER HELPER 04/27/2024 8:39 AM BUTTERMAKER HELPER us Gia Solano M.D. LAB BLOOD ADD-ON Final Result [facility] [address] [place] [address] * Sodium (04/27/2024 7:59 AM BUTTERMAKER HELPER) Pathologist [facility] Sodium, S 141 135 - 145 mmol/L 04/27/2024 11:16 AM BUTTERMAKER HELPER DT Blood (Blood, Venous) 04/27/2024 7:59 AM BUTTERMAKER HELPER 04/27/2024 8:39 AM BUTTERMAKER HELPER us Gia Solano M.D. LAB BLOOD ADD-ON Final Result [facility] [address] [place] [address], [facility] [address] [place] [address] * Creatinine with Estimated GFR (04/27/2024 7:59 AM BUTTERMAKER HELPER) Creatinine 0.98 0.59 - 1.04 mg/dL 04/27/2024 11:16 AM BUTTERMAKER HELPER DTL Estimated GFR (eGFR) 71 >=60 mL/min/BSA 04/27/2024 11:16 AM BUTTERMAKER HELPER DTL Comment: Estimated GFR calculated using the 2020 CKD_EPI creatinine equation. Blood (Blood, Venous) 04/27/2024 7:59 AM BUTTERMAKER HELPER 04/27/2024 8:39 AM BUTTERMAKER HELPER Gia Solano M.D. LAB BLOOD ADD-ON Final Result Performing Organization Address City/[facility]/ZIP Co de Phone Number [facility] [address] [place] [address] * Cortisol (04/27/2024 7:59 AM BUTTERMAKER HELPER) Cortisol AM Result 5.3 4.8 - 20 mcg/dL 04/27/2024 11:16 AM BUTTERMAKER HELPER DTL Blood (Blood, Venous) 04/27/2024 7:59 AM BUTTERMAKER HELPER 04/27/2024 8:39 AM BUTTERMAKER HELPER Gia Solano M.D. LAB BLOOD ADD-ON Final Result Performing Organization Address [facility] Co de Phone Number [facility] [address] [place] [address] * MR Pituitary without and with IV Contrast (04/27/2024 7:32 AM BUTTERMAKER HELPER) Anatomical Region Laterality Modality Head, Neuroradiology RST LOS , Neuroradiology ARZ LOS, Neuroradiology FLA LOS N/A Magnetic Resonance Impressions 04/27/2024 8:50 AM BUTTERMAKER HELPER 1. Interval postoperative changes of pituitary microadenoma resection without evidence of residual/recurrent disease. 2. 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 Narrative 04/27/2024 8:50 AM BUTTERMAKER HELPER EXAM: MR PITUITARY WITHOUT AND WITH IV CONTRAST COMPARISON: MR brain 06/24/2023 and dating back to 05/21/2021 FINDINGS: Interval postoperative changes of transsphenoidal approach endoscopic resection of pituitary microadenoma with mucosal graft reconstruction on 01/26/2024. Thin linear enhancement about the periphery of the T2 hyperintense resection cavity (series 9, image 197 and series 6, image 9) without convincing evidence of residual/recurrent adenoma. Optic chiasm remains decompressed. Cavernous sinuses appear normal. Infundibulum remains midline. Stable 3 mm ovoid enhancing nodule within the right internal auditory canal, likely representing a vestibular schwannoma. Few scattered nonspecific periventricular and subcortical white matter T2/FLAIR hyperintensities, unchanged. Mild mucosal thickening of the paranasal sinuses. Small mucus retention cyst right maxillary sinus. Procedure Note Pranav Faulkner M.D. - 04/27/2024 EXAM: MR PITUITARY WITHOUT AND WITH IV CONTRAST COMPARISON: MR brain 06/24/2023 and dating back to 05/21/2021 FINDINGS: Interval postoperative changes of transsphenoidal approach endoscopicresection of pituitary microadenoma with mucosal graft reconstruction on01/26/2024. Thin linear enhancement about the periphery of the [id number] resection cavity (series 9, image 197 and series 6, image 9) without convincing evidence ofresidual/recurrent adenoma. Optic chiasm remains decompressed. Cavernoussinuses appear normal. Infundibulum remains midline. Stable 3 mm ovoid enhancing nodule within the right internal auditorycanal, likely representing a vestibular schwannoma. Few scattered nonspecific periventricular and subcortical white matterT2/FLAIR hyperintensities, unchanged. Mild mucosal thickening of theparanasal sinuses. Small mucus retention cyst right maxillary sinus. IMPRESSION: 1. Interval postoperative changes of pituitary microadenoma resectionwithout evidence of residual/recurrent disease. 2. 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 Zan Schmidt M.D. IMG MRI PROCEDURES Final Result * Nasal Endoscopy-Otorhinolaryngology Image Exam (03/29/2024 11:05 PM BUTTERMAKER HELPER) Only the most recent of2 resultswithin the time period is included. Narrative [facility] - 03/30/2024 9:58 AM BUTTERMAKER HELPER This order has been created and auto-finalized to support the import of images acquired without order. The clinical documentation to support these images can be found on the encounter that produced images. us Provider Not In System IMG NON RAD IMAGING PROCE DURES Final Result [facility] NA * (ABNORMAL) Basic Metabolic Panel (01/27/2024 6:41 AM BUTTERMAKER HELPER) Potassium, S 4.0 3.6 - 5.2 mmol/L 01/27/2024 8:23 AM BUTTERMAKER HELPER DTL Sodium, S 135 135 - 145 mmol/L 01/27/2024 8:23 AM BUTTERMAKER HELPER DTL Chloride, S 100 98 - 107 mmol/L 01/27/2024 8:23 AM BUTTERMAKER HELPER DTL Bicarbonate, S 25 22 - 29 mmol/L 01/27/2024 8:23 AM BUTTERMAKER HELPER DTL Anion Gap 10 7 - 15 01/27/2024 8:23 AM BUTTERMAKER HELPER DTL BUN (Blood Urea Nitrogen), S 9 6 - 21 mg/dL 01/27/2024 8:23 AM BUTTERMAKER HELPER DTL Creatinine 0.70 0.59 - 1.04 mg/dL 01/27/2024 8:23 AM BUTTERMAKER HELPER DTL Estimated GFR (eGFR) >90 >=60 mL/min/BSA 01/27/2024 8:23 AM BUTTERMAKER HELPER DTL Comment: Estimated GFR calculated using the 2020 CKD_EPI creatinine equation. Calcium, Total, S 8.9 8.6 - 10.0 mg/dL 01/27/2024 8:23 AM BUTTERMAKER HELPER DTL Glucose, S 160(H) 70 - 140 mg/dL 01/27/2024 8:23 AM BUTTERMAKER HELPER DTL Blood (Blood, Venous) 01/27/2024 6:41 AM BUTTERMAKER HELPER 01/27/2024 7:57 AM BUTTERMAKER HELPER us Ila Sneed M.D., Ph.D. LAB BLOOD ADD-ON Fi nal Result [facility] [address] [place] [address], [facility] DTL [facility] [address] [place] [address] * XR MAMMO POST CLIP PLCMT RT-Outside Mammogram (05/09/2021 2:20 PM CDT) Narrative [facility]IMS - 05/28/2021 8:31 PM CDT This order has been created and auto-finalized to support the import of outside images. If available, original interpretation can be found on the Media Tab in Chart Review, in Document Viewer, or as an image in QREADS. If a re-interpretation or overread is required please follow defined workflow. us Provider Not In System IMG BI PROCEDURES Final R esult [facility]IMS NA from Last 3 Months or Most Recently Relevant to Health Maintenance Insurance [facility] Advance Directives For more information, please contact: [phone] * Full Code (Latest Code Status on File) Date Activated Date Inactivated Comments 01/26/2024 6:48 PM 01/27/2024 3:56 PM Question Answer Comments Full Code: Not Discussed Due to: Patient not available * Full Code Date Activated Date Inactivated Comments 01/26/2024 11:42 AM 01/26/2024 6:48 PM Question Answer Comments Full Code: Not Discussed Due to: Patient not available Care Teams Car Pusher Relationship Specialty Start Date End Date Elsewhere, Pcp PCP - General Internal Medicine 04/23/24
--- OUTSIDE RECORDS SUMMARY | 2024-06-24 19:59 | XMS_ITS | Data Portability ---
Author Organization [place] [facility] Address [address] [address] Care Team Providers Care Occupational Therapist Assistants Name Role Phone [facility] Referring Provider [phone] GAEL WYMAN Primary Care Provider Assessment Encounter Date Assessment Date Assessment LastModified by Organization Details LastModified Time 01/13/2024 01/13/2024 Today I reviewed the diagnosis, contributing factors and treatment options. I reviewed and reinforced continued use of self care and home exercises. I encouraged daily home care use which may consist of heat and ice compresses, oral habit reduction and relaxation techniques. The intraoral appliance was not assessed today as the patient did not have the appliance with them. I recommended regular use of the appliance. Today a round of trigger point injections was completed. No intra-operative complications were encountered. Patient will monitor site for signs of infection and report any adverse side effects. I reinforced self care and regular jaw exercises. Pascale is currently engaged in physical therapy at this time. I recommended follow up Onabotulinum toxin injections in 4 weeks. History today was obtained from the patient. The patient has 5+ diagnoses which we are addressing. Their symptoms are chronic. This case is moderate complexity because of multiple diagnoses with chronic symptoms.Risk of complications include disease/symptom progression were discussed. Today time spent may have included a review of past records, history taking, review of diagnoses, contributing factors, treatment plan, diagnostic testing, prognosis, expectations, risks and complications of treatment/no treatment, discussions with other providers and completing documentation was 25 minutes. I suggested that (s)he return for follow-up care in 4-6 weeks. Not available 01/15/2024 12:51:32 02/10/2024 02/10/2024 The patient continues to present with signs and symptoms of conditions identified in the initial evaluation. I anticipate that the patient will benefit from continued skilled care that will lead towards full goal completion. All procedures were performed in distinct and separate time periods and sequential on the same day with other services during the patient encounter. They tolerated therapy activities today well with mild reduction in LS and masseter tension following manual therapy and HEP review. She demonstrated continued improved baseline jaw AROM despite multiple recent procedures in head region. Plan to see patient PRN over the next 1-2 months to ensure proper HEP performance and associated symptom management. They continue to show potential and continued progression toward functional goals, indicating continued skilled therapy to achieve their highest level of function. [email or web address] Not available 02/10/2024 15:16:53 02/10/2024 02/10/2024 Today I reviewed the diagnosis, contributing factors and treatment options. I reviewed and reinforced continued use of self care and home exercises. I encouraged daily home care use which may consist of heat and ice compresses, oral habit reduction and relaxation techniques. The intraoral appliance did not require additional adjustment. I recommended regular use of the appliance. Pascale continues to be engaged in rehabilitative care. Today a round of Onabotulinum toxin A injections of masticatory muscles was completed. No intra-operative complications were encountered. Patient was educated on side effects and goals of therapy. Further instructions include use of ice compressions. I recommended monitoring for adverse effects. Pascale has noticed significant improvement in jaw symptoms. I believe it is reasonable to increase dose at this round. Further details are elsewhere in EHR. I believe it is reasonable to continue treatment with Botox. I reinforced self care and continued use of intraoral appliance at this time. Jaw symptoms are slightly flared from the recent surgery and sinus symptoms. It may be reasonable to adjust the appliance in follow up after upcoming dental crown. I recommended follow up in 3 months or sooner if needed. History today was obtained from the patient. The patient has 5+ diagnoses which we are addressing. Their symptoms are improving. This case is moderate complexity because of multiple diagnoses with chronic symptoms. Risk of complications include disease/symptom progression were discussed. Today time spent may have included a review of past records, history taking, review of diagnoses, contributing factors, treatment plan, diagnostic testing, prognosis, expectations, risks and complications of treatment/no treatment, discussions with other providers and completing documentation was 25 minutes. I suggested that (s)he return for follow-up care in 3 months. Not available 02/11/2024 12:06:00 02/24/2024 02/24/2024 Today I reviewed the diagnosis, contributing factors and treatment options. I reviewed and reinforced continued use of self care and home exercises. I encouraged daily home care use which may consist of heat and ice compresses, oral habit reduction and relaxation techniques. The intraoral appliance was not assessed today as the patient did not have the appliance with them. I recommended regular use of the appliance. Pascale continues to improve. 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 She continues to notice neck muscle tightness. I reinforced self care and continued treatment with physical therapy. Today a round of trigger point injections was completed. Patient tolerated injection. Patient will monitor site for signs of infection and report any adverse side effects. It may be reasonable to consider referral to Dr. Coe for management of neck tightness. Pascale will return for follow up in 3 months. History today was obtained from the patient. The patient has 5+ diagnoses which we are addressing. Their symptoms are chronic. This case is moderate complexity because of multiple diagnoses with chronic symptoms. Risk of complications include disease/symptom progression were discussed. Today time spent may have included a review of past records, history taking, review of diagnoses, contributing factors, treatment plan, diagnostic testing, prognosis, expectations, risks and complications of treatment/no treatment, discussions with other providers and completing documentation was 25 minutes. I suggested that (s)he return for follow-up care in 2-3 months. Not available 02/24/2024 14:48:56 05/05/2024 05/05/2024 Today I reviewed the diagnosis, contributing factors and treatment options. I reviewed and reinforced continued use of self care and home exercises. I encouraged daily home care use which may consist of heat and ice compresses, oral habit reduction and relaxation techniques. The intraoral appliance was not assessed today as the patient did not have the appliance with them. I recommended continued use of the appliance. Pascale presents for a round of Onabotulinum toxin A injections. She has responded favorably to the injections and has noticed less jaw tightness, headaches, need for rescue medications. Today a round of injections was completed. No intra-operative complications were encountered. Patient tolerated the procedure well. I recommended monitoring for adverse effects including injection site pain, muscle weakness. Patient was educated on side effects and goals. 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 I discussed and answered questions on computer terminal operator efficacy. I reinforced self care and continued jaw exercises to manage and maintain muscle activity. Pascale will connect with Dr. Coe in follow up to evaluate neck tightness. I recommended follow up in 3 months. History today was obtained from the patient. The patient has 5+ diagnoses which we are addressing. Their symptoms are significantly improved. This case is moderate complexity because of multiple diagnoses with chronic symptoms. Discussion with treatment team members after visit was necessary. Risk of complications include disease/symptom progression were discussed. Today time spent may have included a review of past records, history taking, review of diagnoses, contributing factors, treatment plan, diagnostic testing, prognosis, expectations, risks and complications of treatment/no treatment, discussions with other providers and completing documentation was 35 minutes. I suggested that (s)he return for follow-up care in 3-4 months. Not available 05/07/2024 07:01:42 Plan of Treatment Reminders Order Date Submit Date Provider Last Modified By Organization Details Last Modified Time Details Appointments BOTOX FU 2024 04:00P M ANTWON JACKSON BDS,MS Not available Not available Not available Evaluatio n 2024 08:30A M Roel Coe MD Not available Not available Not available Lab None recorded. Referral None recorded. Procedures None recorded. Surgeries None recorded. Imaging None recorded. Medication Orders None recorded. Patient Targets Encounter Date Encounter Id Patient Goals Patient Target Last Modified By Organization Details Last Modified Time terminal gauger goals (to be met in 12 weeks):*Patient will report improved score on JFWL by at least 10%, indicating clinically significant improvement in self-reported level of function to allow patient to safely achieve pre-onset level of function. - NOT MET*Patient will demonstrate the ability to open jaw to 40mm IO without compensations, noticeable difficulty or pain greater than 2/10 to be allow for adequate jaw function for chewing food of all types and consistencies without compensation or difficulty. - MET [email or web address] Not available 02/10/2024 13:17:36 Patient Instructions Encounter Date Encounter Id Patient Instructions Last Modified By Organization Details Last Modified Time 02/10/2024 [id number] Total treatment time minutes today: 40 Medbridge Access Code: [email or web address]; At-Home Strengthening Code: [email or web address] Next Visit Plan: progress postural strengthening; add posterior digastric exercises Patient/Therapist Goals: chew without pain, reduce tension Progress Note Date: 05/04/2024 (POC extended due to continued deficits) [email or web address] Not available 02/10/2024 15:17:24 Reason for Referral None Reported. Problems Name Problem SNOMED Code Status Onset Date Resolution Date Notes Provider Name and Address Organization Details Recorded Time Bilateral temporoma ndibular joint pain 839657697401 21670 Active 2023 ANTWON JACKSON BDS,MS [address], [place], [address], [facility] 4 18:26:40 Sleep related bruxism 869856525 Active 2023 ANTWON JACKSON BDS,MS [address], [place], [address], [place] [facility] 4 18:26:47 Chronic tension-t ype headache 866207783 Active 2023 ANTWON JACKSON BDS,MS [address], [place], [address], [facility] 4 18:26:56 Migraine without aura 48997891 Active 2023 ANTWON JACKSON BDS,MS [address], [place], [address], [facility] 4 18:27:04 Neck pain 52738599 Active 2023 ANTWON JACKSON BDS,MS [address], [place], [address], [facility] 4 18:27:09 Myofascia l pain 313748413 Active 2023 ANTWON JACKSON BDS,MS [address], [place], [address], [facility] 4 09:38:17 Schwannom a 000884125 Active 2023 ANTWON JACKSON BDS,MS [address], [place], [address], [facility] 4 09:40:30 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 Procedures Surgical History Date Name Laterality Status Provider Name and Address Organization Details Recorded Time 09/30/19 24 78661: Needle insertion(s) without injection(s), 1 or 2 muscle(s) completed GONZALO LEON DPT [address] [place] [address] [address], [place], [address], [facility] 09/30/2023 16:55:55 09/30/19 24 50560: Therapeutic Exercise completed GONZALO LEON DPT [address] [place] [address] [address], [place], [address], [facility] 09/30/2023 16:02:18 09/30/19 24 65831: Neuromuscular Re-Education completed GONZALO LEON DPT [address] [place] [address] [address], [place], [address], [facility] 09/30/2023 16:00:57 09/30/19 24 78981: Manual Therapy completed GONZALO LEON DPT [address], [place], [address], [facility] 09/30/2023 16:56:16 09/23/19 24 Trigger point injection completed ANTWON JACKSON BDS,MS [address], [place], [address], [facility] 09/23/2023 10:48:38 09/16/19 24 86372: Self Care/Home Management Training cancelled GONZALO LEON DPT [address], [place], [address], [facility] 09/15/2023 16:28:02 09/16/19 24 70906: Therapeutic Exercise cancelled GONZALO LEON DPT [address], [place], [address], [facility] 09/15/2023 16:28:02 09/16/19 24 47874: Neuromuscular Re-Education cancelled GONZALO LEON DPT [address], [place], [address], [facility] 09/15/2023 16:28:02 09/16/19 24 91647: Manual Therapy cancelled GONZALO LEON DPT [address], [place], [address], [facility] 09/15/2023 16:28:40 09/09/19 24 61327: Self Care/Home Management Training completed GONZALO LEON DPT [address], [place], [address], [facility] 09/09/2023 17:09:25 09/09/19 24 39990: Therapeutic Exercise completed GONZALO LEON DPT [address], [place], [address], [facility] 09/09/2023 16:51:57 09/09/19 24 85197: Neuromuscular Re-Education completed GONZALO LEON DPT [address], [place], [address], [facility] 09/09/2023 16:51:59 09/09/19 24 60842: Manual Therapy completed GONZALO LEON DPT [address], [place], [address], [facility] 09/09/2023 17:09:12 09/02/19 24 Trigger point injection completed ANTWON JACKSON BDS,MS [address], [place], [address], [facility] 09/05/2023 13:07:17 09/02/19 24 20182: Therapeutic Exercise completed GONZALO LEON DPT [address], [place], [address], [facility] 09/02/2023 16:40:27 09/02/19 24 36927: Neuromuscular Re-Education completed GONZALO LEON DPT [address], [place], [address], [facility] 09/02/2023 16:40:27 09/02/19 24 14585: Manual Therapy completed GONZALO LEON DPT [address], [place], [address], [facility] 09/02/2023 16:41:10 08/26/19 24 42339: Self Care/Home Management Training cancelled CESILIA REYEST [address], [place], [address], [facility] 08/26/2023 11:12:04 08/26/19 24 43794: Therapeutic Exercise cancelled GONZALO LEON DPT [address], [place], [address], [facility] 08/26/2023 11:12:04 08/26/19 89120: Neuromuscular Re-Education cancelled GONZALO LEON DPT [address], [place], [address], [facility] 08/26/2023 11:12:04 08/26/19 46248: Manual Therapy cancelled GONZALO LEON DPT [address], [place], [address], [facility] 08/26/2023 11:12:04 08/26/19 88473: Therapeutic Activities cancelled GONZALO LEON DPT [address], [place], [address], [facility] 08/26/2023 11:12:04 08/19/19 80776: Therapeutic Exercise completed GONZALO LEON DPT [address], [place], [address], [facility] 08/19/2023 16:46:44 08/19/19 08886: Neuromuscular Re-Education completed GONZALO LEON DPT [address], [place], [address], [facility] 08/19/2023 16:47:50 08/19/19 99407: Manual Therapy completed GONZALO LEON DPT [address], [place], [address], [facility] 08/19/2023 16:47:52 08/12/19 18291 - PT Eval Moderate Complexity completed GONZALO LEON DPT [address], [place], [address], [facility] 08/12/2023 17:06:13 08/12/19 24 65403: Self Care/Home Management Training completed GONZALO LEON DPT [address], [place], [address], [facility] 08/12/2023 17:05:25 08/12/19 24 28622: Therapeutic Exercise completed GONZALO LEON, CESILIAT [address], [place], [address], [facility] 08/12/2023 17:06:04 08/12/19 24 61831: Neuromuscular Re-Education completed GONZALO LEON, CESILIAT [address], [place], [address], [facility] 08/12/2023 17:05:31 08/12/19 24 42974: Manual Therapy completed GONZALO LEON, CESILIAT [address], [place], [address], [facility] 08/12/2023 17:05:58 08/12/19 24 Trigger point injection completed ANTWON JACKSON BDS,MS [address], [place], [address], [facility] 08/14/2023 11:46:33 08/01/[address] TMJ completed Maryse Peng [facility] 08/01/2023 09:33:39 07/30/19 24 Trigger point injection completed ANTWNO JACKSON BDS,MS [address], [place], [address], [facility] 08/03/2023 13:10:15 07/08/19 24 Trigger point injection completed ANTWON JACKSON BDS,MS [address], [place], [address], [facility] 07/09/2023 09:48:37 06/17/19 24 Trigger point injection completed ANTWON JACKSON BDS,MS [address], [place], [address], [facility] 06/19/2023 12:15:19 Imaging Results None recorded. Procedure Notes None recorded. Medical Equipment None Reported. Allergies Allergen ID Allergen Name Allergen Category Reaction Reaction Severity Criticality Documentation Date Start Date Code Code System Note Provider Name and Address Organization Details Recorded Time 23836 Macrobid medicatio n Not available Not available Not available 06/03/2023 96257 1 RxNorm Tanya Wiggins [place], [place] - [facility] 4 16:51:42 Medications Name Sig Start Date Stop Date Status Note LastModified by Organization Details LastModified Time dicloxacill in 500 mg capsule TAKE 1 CAPSULE (500 MG) BY MOUTH FOUR TIMES DAILY BEFORE MEALS AND AT BEDTIME FOR 10 DAYS. 10/07 completed Not Available Not Available Not Available doxycycline hyclate 100 mg capsule TAKE 1 CAPSULE BY MOUTH TWO TIMES DAILY FOR 7 DAYS. 11/04 completed Not Available Not Available Not Available fluconazole 150 mg tablet TAKE 1 TABLET BY MOUTH ONCE. MAY REPEAT IN 3 DAYS IF NEEDED. 06/02 completed Not Available Not Available Not Available valacyclovi r 1 gram tablet TAKE 1 TABLET (1 G) BY MOUTH THREE TIMES DAILY FOR 10 DAYS. 02/03 completed Not Available Not Available Not Available phenazopyri dine 200 mg tablet TAKE 1 TABLET (200 MG) BY MOUTH THREE TIMES DAILY AFTER MEALS FOR 2 DAYS. 07/29 completed Not Available Not Available Not Available ondansetron HCl 4 mg tablet active Not Available Not Available Not Available phentermine 15 mg capsule TAKE 1 CAPSULE (15 MG) BY MOUTH ONCE DAILY BEFORE A MEAL. 07/07 completed Not Available Not Available Not Available tretinoin 0.05 % topical cream APPLY A PEA SIZED AMOUNT TO ENTIRE FACE EVERY OTHER NIGHT INCREASIN G TO NIGHTLY TOLERATED . active Not Available Not Available No t Available ciprofloxac in 500 mg tablet 05/05 completed Not Available Not Available Not Available sulfamethox azole 800 mg-trimetho prim 160 mg tablet active Not Available Not Available Not Available zolmitripta n 2.5 mg disintegrat ing tablet Take by oral route. active Not Available Not Available No t Available triamcinolo ne acetonide 0.1 % topical cream PLEASE SEE ATTACHED FOR DETAILED DIRECTION S active Not Available Not Available No t Available meloxicam 7.5 mg tablet Take 1 tablet every day by oral route. 12/08 completed Not Available Not Available Not Available oxycodone-a cetaminophe n 5 mg-325 mg tablet 02/23 completed Not Available Not Available Not Available [...] MOUTH TWO TIMES DAILY FOR 7 DAYS. 12/08 completed Not Available Not Available Not Available erythromyci n 5 mg/gram (0.5 %) eye ointment 02/23 completed Not Available Not Available Not Available cabergoline 0.5 mg tablet TAKE ONE-HALF TABLET (0.25MG) BY MOUTH TWO TIMES A WEEK, TAKE AT BEDTIME WITH A SNACK 01/25 completed Not Available Not Available Not Available losartan 25 mg tablet TAKE 1 TABLET BY MOUTH EVERY DAY active Not Available Not Available No t Available gabapentin 300 mg capsule 10/25 completed Not Available Not Available Not Available sertraline 25 mg tablet 07/29 completed Not Available Not Available Not Available hydrochloro thiazide 25 mg tablet TAKE 0.5 TABLETS BY MOUTH ONCE DAILY. active Not Available Not Available No t Available hydrocortis one 10 mg tablet TAKE 2 TABS (20MG) BY MOUTH DIRECTED. 10MG AM+10MG PM-DOUBLE DURING ILLNESS. 200 TABS/90 DAYS active Not Available Not Available No t Available hydrocortis one 2.5 % topical ointment active Not Available Not Available Not Available doxycycline hyclate 100 mg tablet TAKE 1 TABLET (100 MG) BY MOUTH TWO TIMES DAILY BEFORE MEALS FOR 7 DAYS. 11/04 completed Not Available Not Available Not Available amoxicillin 875 mg-potassiu m clavulanate 125 mg tablet 02/23 completed Not Available Not Available Not Available oxycodone 5 mg tablet 02/23 completed Not Available Not Available Not Available Botox 100 unit injection Take 100 units every 3 months by injection route as directed, for jaw pain. 2023 active Not Available Not Available Not Avai lable zolmitripta n 5 mg nasal spray Take by nasal route. 05/05 completed Not Available Not Available Not Available escitalopra m 5 mg tablet TAKE 1 TABLET (5 MG) BY MOUTH ONCE DAILY IN THE MORNING. 01/08 completed Not Available Not Available Not Available Zoloft 07/29 completed Not Available Not Available Not Available Claritin 02/23 completed Not Available Not Available Not Available Percocet PRN 09/22 completed Not Available Not Available Not Available Nasacort active Not Available Not Avai lable Not Available [id number] 100 gram-sod sulf 7.5 gram-NaCl-K Cl-ascorbat e-C oral pwdr pack FOLLOW THE PATIENT INSTRUCTI ONS ON SIDE OF BOX. 06/02 completed Not Available Not Available Not Available Reusable Nebulizer Kit USE NEEDED WITH ALBUTEROL active Not Available Not Available No t Available Qsymia 7.5 mg-46 mg capsule, extended release TAKE 1 CAPSULE BY MOUTH EVERY DAY 01/08 completed Not Available Not Available Not Available QNASL 40 mcg/actuati on nasal aerosol spray active Not Available Not Available Not Available Vitals Date Recorded Body height Body mass index (BMI) Body weight Heart rate Systolic blood pressure Diastolic blood pressure Provider Name and Address Organization Details Last Updated DateTime 4 165.1 cm 23.3 kg/m2 58261.9 3 g 84 /min 143 mm[Hg] 103 mm[Hg] [facility] 17:34:25 Date Recorded Body height Body mass index (BMI) Body weight Heart rate Systolic blood pressure Diastolic blood pressure Provider Name and Address Organization Details Last Updated DateTime 4 165.1 cm 23.3 kg/m2 19523.9 3 g 73 /min 127 mm[Hg] 87 mm[Hg] [facility] 4 11:30:42 Date Recorded Body height Heart rate Systolic blood pressure Diastolic blood pressure Provider Name and Address Organization Details Last Updated DateTime 02/24/2024 165.1 cm 80 /min 142 mm[Hg] 102 mm[Hg] Steven Ferrell [facility] 02/24/2024 12:59:53 Date Recorded Body height Body mass index (BMI) Body weight Heart rate Systolic blood pressure Diastolic blood pressure Provider Name and Address Organization Details Last Updated DateTime 5 165.1 cm 23.3 kg/m2 47718.9 3 g 90 /min 118 mm[Hg] 70 mm[Hg] Maryse Peng [place] - [facility] 17:30:36 Social History Question Answer Notes LastModified by Organizat ion Details LastModified Time Tobacco Smoking Status Never Smoker Tanya Swiftsteve gibson [place] - [facility] 06/03/2023 16:52:05 What Is Your Level Of Alcohol Consumption? None [email or web address] Information not available 06/03/2023 What Is Your Level Of Caffeine Consumption? Moderate Information not available 06/03/2023 Are You Currently Employed? Yes [email or web address] Information not available 06/03/2023 What Type Of Diet Are You Following? REGULAR [email or web address] Information not available 06/03/2023 Do You Reside In Or Have You Traveled To An Area Where Ebola Virus Transmission Is Active? No [email or web address] Information not available 06/03/2023 What Is The Highest Grade Or Level Of School You Have Completed Or The Highest Degree You Have Received? 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 (0=no Pain, 10=pain As Bad As You Can Imagine) 4 [email or web address] Information not available 06/03/2023 What Number Best Describes How, During The Past Week, Pain Has Interfered With Your Enjoyment Of Life? (0=does Not Interfere, 10= Completely Interferes) 3 Information not available 06/03/2023 What Number Best Describes How, During The Past Week, Pain Has Interfered With Your General Activity? (0=does Not Interfere, 10=completely Interferes) 2 Information not available 06/03/2023 How Many Children Do You Have? 3 [email or web address] Information not available 06/03/2023 What Is Your Relationship Status? Information not available 06/03/2023 Do You Feel Stressed (tense, Restless, Nervous, Or Anxious, Or Unable To Sleep At Night)? [id number] [email or web address] Information not available 06/03/2023 Do You Use Any Illicit Or Recreational Drugs? No [email or web address] Information not available 06/03/2023 How Many Years Have You Smoked Tobacco? 0 [email or web address] Information not available 06/03/2023 Sex: Unknown Functional Status Question Answer Note LastModified by Organization D etails LastModified Time What is your exercise level? Moderate [email or web address] Information not available 06/03/2023 Mental Status None recorded. Family History Relationship Description Onset Age of this Age Resolved Age Notes LastModified by Organization Details LastModified Time Mother Hypertensive disorder [email or web address] Not available 2023 16:51:47 Father Hypertensive disorder [email or web address] Not available 2023 16:51:47 Father Heart disease [email or web address] Not available 2023 16:51:47 Medical History Condition Response Anxiety Disorder Y Other Y Headaches Y Migraines Y Hypertension Y Gynecological HistoryNo gynecological history recorded. Obstetrics History GPAL:G 0 P 0 0 0 0 Past Encounters Encounter ID Performer Location Encounter Start Date Encounter Closed Date Diagnosis/Indication Diagnosis SNOMED-CT Code Diagnosis ICD10 Code Diagnosis Note [id number] ANTWON JACKSON BDS,MS [place] [address] [place] [address] 06/03/2023 16:49:24 06/03/2023 18:19:01 Articular disc disorder of temporomandibular joint 51132981 M26.632 Left TMJ disc displaceme nt with reduction Myofascial pain 50797101 9 M79.11 M79.12 Compensation Administrator y and cervical muscles Bilateral temporomandibular joint pain 7588062343 3522935 M26.623 Sleep related bruxism 27 8404386 G47.63 Chronic te nsion-type headache 630777825 G44.229 Migraine without aura 56 791636 G43.009 Neck pain 68287888 M54.2 Schwannoma 305536781 D36 .10 RIGHT EAR - previously diagnosed and monitored with yearly imagingSta ble [id number] ANTWON JACKSON BDS,MS [place] [address] [place] [address] 06/17/2023 16:42:36 06/17/2023 17:13:50 Articular disc disorder of temporomandibular joint 76012148 M26.632 Left TMJ disc displaceme nt with reductionR ule out bilateral TMJ DJDRight ear schwannoma - previously diagnosed Myofascial pain 71512453 9 M79.11 M79.12 Compensation Administrator y and cervical muscles Neck pain 26865008 M54.2 Migraine without aura 56 504527 G43.009 Sleep related bruxism 27 6565930 G47.63 Chronic te nsion-type headache 434778693 G44.229 Schwannoma 333117990 D36 .10 RIGHT EAR - previously diagnosed and monitored with yearly imagingSta ble Bilateral temporomandibular joint pain 4167474325 3481092 M26.623 [id number] ANTWON JACKSON BDS,MS [place] [address] [place] [address] 07/08/2023 16:44:50 07/08/2023 17:53:57 Articular disc disorder of temporomandibular joint 99771486 M26.632 Left TMJ disc displaceme nt with reductionR ule out bilateral TMJ DJDRight ear schwannoma - previously diagnosed Bilateral temporomandibular joint pain 2502384659 5125372 M26.623 Myofascial pain 40802829 9 M79.11 M79.12 Compensation Administrator y and cervical muscles Chronic te nsion-type headache 874065458 G44.229 Sleep related bruxism 27 6728644 G47.63 [id number] ANTWON JACKSON BDS,MS [place] [address] [place] [address] 07/30/2023 16:47:02 07/30/2023 17:44:30 Articular disc disorder of temporomandibular joint 04624691 M26.632 Left TMJ disc displaceme nt with reductionR ule out bilateral TMJ DJDRight ear schwannoma - previously diagnosed Bilateral temporomandibular joint pain 6060719788 8785979 M26.623 Myofascial pain 24816877 9 M79.11 M79.12 Compensation Administrator y and cervical muscles Chronic te nsion-type headache 811639909 G44.229 Sleep related bruxism 27 5588563 G47.63 [id number] ANTWON KARISHMA JACKSON,MS [facility] [address] [facility] [address] [place] [address] 08/01/2023 09:24:11 08/01/2023 09:28:48 Articular disc disorder of temporomandibular joint 40416054 M26.632 Left TMJ disc displaceme nt with reductionR ule out bilateral TMJ DJDRight ear schwannoma - previously diagnosed [id number] GONZALO LEON, DPT [place] [address] [place] [address] 08/12/2023 15:54:44 08/12/2023 19:03:46 Bilateral temporomandibular joint pain 8157950998 4787862 M26.623 Chronic te nsion-type headache 266206679 G44.229 Myofascial pain 54255214 9 M79.11 M79.12 Neck pain 22657124 M54.2 Migraine without aura 56 899001 G43.009 [id number] ANTWONSOLEDAD JACKSON BDS,MS [place] [address] [place] [address] 08/12/2023 15:26:03 08/13/2023 12:54:59 Bilateral temporomandibular joint pain 3149419836 6978128 M26.623 Schwannoma 487873765 D36 .10 RIGHT EAR - previously diagnosed and monitored with yearly imagingSta ble Chronic te nsion-type headache 470156137 G44.229 Sleep related bruxism 27 4476080 G47.63 Myofascial pain 27641325 9 M79.11 M79.12 Compensation Administrator y and cervical muscles Migraine without aura 56 906760 G43.009 Neck pain 30483183 M54.2 Articular disc disorder of temporomandibular joint 78519778 M26.632 Left TMJ disc displaceme nt with reductionR ule out bilateral TMJ DJDRight ear schwannoma - previously diagnosed Arthritis of left temporomandibular joint 2267494900 1278008 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 [id number] ANTWON JACKSON KAITLINS,MS [place] [address] [place] [address] 08/14/2023 14:00:41 08/14/2023 14:31:27 [id number] GONZALO SPICERK, DPT [place] [address] [place] [address] 08/19/2023 15:56:43 08/19/2023 18:44:38 Bilateral temporomandibular joint pain 9954135875 6494059 M26.623 Chronic te nsion-type headache 879666589 G44.229 Myofascial pain 81076938 9 M79.11 M79.12 Neck pain 36480637 M54.2 Migraine without aura 56 428680 G43.009 [id number] KAITLIN CANTUS,MS [place] [address] [place] [address] 09/02/2023 15:01:54 09/02/2023 15:49:33 Arthritis of left temporomandibular joint 4034921631 5238044 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 Myofascial pain 05430166 9 M79.11 M79.12 Compensation Administrator y musclesPre vious treatment - NSAIDs, tylenol, muscle relaxants, intraoral appliance, physical therapy, trigger point injections . Articular disc disorder of temporomandibular joint 92310916 M26.632 Left TMJ disc displaceme nt with reductionR ule out bilateral TMJ DJDRight ear schwannoma - previously diagnosed Bilateral temporomandibular joint pain 5743897253 7308585 M26.623 Chronic te nsion-type headache 598721880 G44.229 Schwannoma 918435901 D36 .10 RIGHT EAR - previously diagnosed and monitored with yearly imagingSta ble Sleep related bruxism 27 9426763 G47.63 Migraine without aura 56 915581 G43.009 Neck pain 30394333 M54.2 [id number] GONZALO ZENK, DPT [place] [address] [place], [place] [address] 09/02/2023 14:57:47 09/02/2023 16:39:07 Bilateral temporomandibular joint pain 8476821035 3613191 M26.623 Chronic te nsion-type headache 580074702 G44.229 Myofascial pain 32987719 9 M79.11 M79.12 Neck pain 32279077 M54.2 Migraine without aura 56 342749 G43.009 [id number] GONZALO LEON, DPT [place] [address] [place], [place] [address] 09/09/2023 15:44:51 09/09/2023 16:57:38 Bilateral temporomandibular joint pain 9187678467 6559536 M26.623 Chronic te nsion-type headache 762693480 G44.229 Myofascial pain 35642503 9 M79.11 M79.12 Neck pain 06308918 M54.2 Migraine without aura 56 279724 G43.009 [id number] ANTWON JACKSON, BDS,MS [place] [address] [place] [address] 09/23/2023 08:58:29 09/23/2023 10:49:27 Arthritis of left temporomandibular joint 6639134452 8536775 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 Myofascial pain 00716061 9 M79.11 M79.12 Compensation Administrator y musclesPre vious treatment - NSAIDs, tylenol, muscle relaxants, intraoral appliance, physical therapy, trigger point injections . Articular disc disorder of temporomandibular joint 40519279 M26.632 Left TMJ disc displaceme nt with reductionR ule out bilateral TMJ DJDRight ear schwannoma - previously diagnosed Bilateral temporomandibular joint pain 4491422994 8863130 M26.623 Chronic te nsion-type headache 656147996 G44.229 Schwannoma 709482553 D36 .10 RIGHT EAR - previously diagnosed and monitored with yearly imagingSta ble Sleep related bruxism 27 0686074 G47.63 Migraine without aura 56 618313 G43.009 Neck pain 80971657 M54.2 [id number] GONZALO LEON, DPT [place] [address] [place], [place] [address] 09/30/2023 15:05:03 09/30/2023 17:19:12 Bilateral temporomandibular joint pain 9362608346 5433041 M26.623 Chronic te nsion-type headache 417678664 G44.229 Myofascial pain 24282128 9 M79.11 M79.12 Neck pain 49170339 M54.2 Migraine without aura 56 450284 G43.009 [id number] KAITLIN CANTUS,MS [place] [address] [place] [address] 10/08/2023 14:26:05 10/08/2023 15:26:51 Articular disc disorder of temporomandibular joint 72818103 M26.632 Left TMJ disc displaceme nt with reductionR ule out bilateral TMJ DJDRight ear schwannoma - previously diagnosed Myofascial pain 51562993 9 M79.11 M79.12 Compensation Administrator y musclesPre vious treatment - NSAIDs, tylenol, muscle relaxants, intraoral appliance, physical therapy, trigger point injections . Bilateral temporomandibular joint pain 8282901621 0062692 M26.623 Chronic te nsion-type headache 105248835 G44.229 Migraine without aura 56 148045 G43.009 Neck pain 89854502 M54.2 Schwannoma 058069930 D36 .10 RIGHT EAR - previously diagnosed and monitored with yearly imagingSta ble Sleep related bruxism 27 5579601 G47.63 [id number] GONZALO LEON, DPT [place] [address] [place], [place] [address] 10/14/2023 14:48:51 10/14/2023 15:59:33 Bilateral temporomandibular joint pain 1228069761 5627624 M26.623 Chronic te nsion-type headache 104693865 G44.229 Myofascial pain 41643875 9 M79.11 M79.12 Neck pain 56334511 M54.2 Migraine without aura 56 904202 G43.009 [id number] ANTWON JACKSON, BDS,MS [place] [address] [place] [address] 10/14/2023 14:49:25 10/14/2023 17:28:47 Articular disc disorder of temporomandibular joint 77357834 M26.632 Left TMJ disc displaceme nt with reductionR ule out bilateral TMJ DJDRight ear schwannoma - previously diagnosed Myofascial pain 79764650 9 M79.11 M79.12 Compensation Administrator y musclesPre vious treatment - NSAIDs, tylenol, muscle relaxants, intraoral appliance, physical therapy, trigger point injections . Bilateral temporomandibular joint pain 6932378092 8623915 M26.623 Chronic te nsion-type headache 686620553 G44.229 Migraine without aura 56 025464 G43.009 Neck pain 06376238 M54.2 Schwannoma 299507886 D36 .10 RIGHT EAR - previously diagnosed and monitored with yearly imagingSta ble Sleep related bruxism 27 0149473 G47.63 [id number] GONZALO LEON, DPT [place] [address] [place] [address] 10/28/2023 17:17:49 10/28/2023 18:03:13 Bilateral temporomandibular joint pain 4975045463 5803741 M26.623 Chronic te nsion-type headache 641415582 G44.229 Myofascial pain 00336526 9 M79.11 M79.12 Neck pain 20266247 M54.2 Migraine without aura 56 103862 G43.009 [id number] GONZALO LEON, CESILIAT [place] [address] [place] [address] 11/04/2023 18:03:52 11/04/2023 18:45:38 Bilateral temporomandibular joint pain 5227167328 3337603 M26.623 Chronic te nsion-type headache 277006874 G44.229 Myofascial pain 25401396 9 M79.11 M79.12 Neck pain 50860568 M54.2 Migraine without aura 56 400656 G43.009 [id number] KAITLIN CANTUS,MS [place] [address] [place] [address] 11/05/2023 17:28:05 11/05/2023 18:07:50 Articular disc disorder of temporomandibular joint 66790773 M26.632 Left TMJ disc displaceme nt with reductionR ule out bilateral TMJ DJDRight ear schwannoma - previously diagnosed Myofascial pain 96175963 9 M79.11 M79.12 Compensation Administrator y musclesPre vious treatment - NSAIDs, tylenol, muscle relaxants, intraoral appliance, physical therapy, trigger point injections . Bilateral temporomandibular joint pain 5495420916 3964028 M26.623 Chronic te nsion-type headache 680562450 G44.229 Migraine without aura 56 859776 G43.009 Neck pain 89568560 M54.2 Schwannoma 149715286 D36 .10 RIGHT EAR - previously diagnosed and monitored with yearly imagingSta ble Sleep related bruxism 27 5710389 G47.63 [id number] GONZALO LEON, CESILIAT [place] [address] [place] [address] 11/18/2023 17:01:12 11/19/2023 08:31:00 Bilateral temporomandibular joint pain 1915824998 2184365 M26.623 Chronic te nsion-type headache 033050703 G44.229 Myofascial pain 01801740 9 M79.11 M79.12 Neck pain 16757579 M54.2 Migraine without aura 56 650394 G43.009 [id number] KAITLIN CANTUS,MS [place] [address] [place] [address] 11/18/2023 17:00:53 11/18/2023 17:47:23 Articular disc disorder of temporomandibular joint 37065590 M26.632 Left TMJ disc displaceme nt with reductionR ule out bilateral TMJ DJDRight ear schwannoma - previously diagnosed Myofascial pain 06222357 9 M79.11 M79.12 Compensation Administrator y musclesPre vious treatment - NSAIDs, tylenol, muscle relaxants, intraoral appliance, physical therapy, trigger point injections . 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 Myofascial pain 82065162 9 M79.11 M79.12 Compensation Administrator y musclesPre vious treatment - NSAIDs, tylenol, muscle relaxants, intraoral appliance, physical therapy, trigger point injections . Bilateral temporomandibular joint pain 3310773818 9033895 M26.623 Chronic te nsion-type headache 305432691 G44.229 Migraine without aura 56 626463 G43.009 Neck pain 80284625 M54.2 Schwannoma 873607750 D36 .10 RIGHT EAR - previously diagnosed and monitored with yearly imagingSta ble Sleep related bruxism 27 9588063 G47.63 [id number] GONZALO LEON, DPT [place] [address] [place] [address] 12/09/2023 16:38:00 12/09/2023 18:10:48 Bilateral temporomandibular joint pain 6372600167 1132230 M26.623 Chronic te nsion-type headache 970007540 G44.229 Myofascial pain 25397068 9 M79.11 M79.12 Neck pain 95273529 M54.2 Migraine without aura 56 802972 G43.009 Articular disc disorder of temporomandibular joint 18736847 M26.632 [id number] ANTWON JACKSON BDS,MS [place] [address] [place] [address] 01/13/2024 17:22:28 01/13/2024 18:15:56 Arthritis of left temporomandibular joint 8797621757 9125042 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 Myofascial pain 37167863 9 M79.11 M79.12 Compensation Administrator y musclesPre vious treatment - NSAIDs, tylenol, muscle relaxants, intraoral appliance, physical therapy, trigger point injections . Bilateral temporomandibular joint pain 6960119196 3839633 M26.623 Chronic te nsion-type headache 550484320 G44.229 Migraine without aura 56 837658 G43.009 Neck pain 30514916 M54.2 Schwannoma 319014151 D36 .10 RIGHT EAR - previously diagnosed and monitored with yearly imagingSta ble Sleep related bruxism 27 1610431 G47.63 [id number] ANTWON JACKSON BDS,MS [place] [address] [place] [address] 02/10/2024 10:53:17 02/10/2024 12:10:54 Articular disc disorder of temporomandibular joint 85214930 M26.632 Left TMJ disc displaceme nt with reductionR ule out bilateral TMJ DJDRight ear schwannoma - previously diagnosed Myofascial pain 60227695 9 M79.11 M79.12 Compensation Administrator y musclesPre vious treatment - NSAIDs, tylenol, muscle relaxants, intraoral appliance, physical therapy, trigger point injections . 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 27 0276620 G47.63 Neck pain 28192571 M54.2 [id number] GONZALO LEON, DPT [place] [address] [place], [place] [address] 02/10/2024 12:08:20 02/10/2024 13:14:32 Bilateral temporomandibular joint pain 0052463927 8737383 M26.623 Chronic te nsion-type headache 823717242 G44.229 Myofascial pain 04142172 9 M79.11 M79.12 Neck pain 47936623 M54.2 Migraine without aura 56 577596 G43.009 Articular disc disorder of temporomandibular joint 52464938 M26.632 [id number] ANTWON JACKSON, BDS,MS [place] [address] [place] [address] 02/24/2024 12:56:35 02/24/2024 13:23:16 Articular disc disorder of temporomandibular joint 27412089 M26.632 Left TMJ disc displaceme nt with reductionR ule out bilateral TMJ DJDRight ear schwannoma - previously diagnosed Myofascial pain 31109658 9 M79.11 M79.12 Compensation Administrator y musclesPre vious treatment - NSAIDs, tylenol, muscle relaxants, intraoral appliance, physical therapy, trigger point injections . 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 27 7584764 G47.63 Neck pain 54842740 M54.2 Health Concerns Section Related Observation LastModified by Organization Detai ls LastModified Time None Recorded Concern Status LastModified by Organization Details LastModified Time None Recorded Advance Directives Directive None Recorded Payers Encounter Date Sequence Insurance Name Policy Number Policy Silva Covered Member ID Silva Member ID Guarantor Name 01/13/2024 1 ROSARIO [id number] Pascale Abdi [id number] Pascale Abdi 02/10/2024 1 ROSARIO [id number] Pascale Abdi [id number] Pascale Abdi 02/10/2024 1 [employer] [id number] Pascale Abdi [id number] Pascale Abdi 02/24/2024 1 [facility] [id number] Pascale Abdi [id number] Pascale Abdi 05/05/2024 1 [facility] [id number] Pascale Abdi [id number] Pascale Abdi Notes Date Note Type Note Provider Name and Address Organization Details Recorded Time 01/13/2024 text/html general HPI for jaw, face, TMD painReported bypatient.Onset:star lyudmila 10 year(s) ago Location:bilateral; masseteric; Left side is worse, but today it feels even. Quality:aching; sharp Severity:nonradiatin g Durationconstant Symptom triggers:clenching; bruxism Aggravating Factors:grinding teeth; clenching the teeth; yawning; wide mouth opening; chewing; talking Alleviating Factors:acetaminophe n; ice; physical therapy; Motrin Associated Symptoms:no jaw clicking; no malocclusion;jaw popping left;tooth pain(left side molars);headaches;ti nnitus(right ear) Prior Tests:panorex Prior Treatment:night time babysitter/oral appliance/splint Prior opiniondentist Patient presents today for follow-up. They report jaw symptoms which are {{improved stable ch ronic chronic and progressive worsened unchanged flared* r esolved}} since the previous visit. Symptoms and pertinent information along with prior data was reviewed, updated and documented in the patient history of present illness. Patient rates the pain intensity as {{0 1 2 3 4 5 6 7 8 9 10 5-6#}} on a scale of 0 to 10. Patient is {{engaged in* not engaged in partially engaged in completed discont inued}} active treatment at this time. 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 She did not bring her TMJ splint for review. Her most recent flare up is still present. Her jaw pain is bilateral and describe as muscular pain that is an ache or sharp pain that is constant. And her neck pain is not so good. And states it's a 4-5/10 on a pain scale. Her tinnitus is still present. Intraoral appliance fits well, she uses it regularly. She denies retention or fit issues. She is engaged in physical therapy with Gonzalo and finds it helpful. Her next appointment for Botox will be in January. ANTWON JACKSON BDS,MS [address] [facility] [address], [place], [phone], [place] [facility] 01/15/2024 12:51:52 02/10/2024 text/html general HPI for jaw, face, TMD painReported bypatient.Onset:star lyudmila 10 year(s) ago Location:bilateral; masseteric; Left side is worse, but today it feels even. Quality:aching; sharp Severity:nonradiatin g Durationconstant Symptom triggers:clenching; bruxism Aggravating Factors:grinding teeth; clenching the teeth; yawning; wide mouth opening; chewing; talking Alleviating Factors:acetaminophe n; ice; physical therapy; Motrin Associated Symptoms:no jaw clicking; no malocclusion;jaw popping left;tooth pain(left side molars);headaches;ti nnitus(right ear) Prior Tests:panorex Prior Treatment:night time babysitter/oral appliance/splint Prior opiniondentist Patient presents today for follow-up. They report jaw symptoms which are {{improved stable ch ronic chronic and progressive worsened unchanged* flared r esolved}} since the previous visit. Symptoms and pertinent information along with prior data was reviewed, updated and documented in the patient history of present illness. Patient rates the pain intensity as {{0* 1 2 3 4 5 6 7 8 9 10}} on a scale of 0 to 10. Patient is {{engaged in* not engaged in partially engaged in completed discont inued}} active treatment at this time. Pascale is present to have her second round of Botox injection treatments. She denies any side effects. This morning she felt like the benefits were wearing off. She is noticing neck and upper back tightness. Botox - Pascale reports no adverse effects. She notices improvement with muscle tension and headaches with Botox. Symptoms improved significantly until recent surgery. She is aware of effect withdrawal recently. She denies muscle weakness, flu-like symptoms or injection site pain or infection. 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 Her surgery went well and was completed on January 25. The patient is dealing with some sinus issues. She notes less ringing in her ears. After the surgery she had a broken molar on her lower right side. She is in the process of getting a new crown. She is trying to wear her older splint and bleaching trays nightly while her TMJ splint is at the lab for fitting the new crown. She denies ongoing tooth pain. Pascale continues to work with rehabilitation with Gonzalo. She reports regular jaw exercises. ANTWON JACKSON BDS,MS [address] [facility] [address], [place], [phone], [facility] 02/11/2024 12:06:50 02/10/2024 text/html Recent surgeries for prolactinoma and for eyelid drooping. R tooth crack during prolactinoma surgery. [place] placement to correct recently. Using massage at masseters, posterior digastrics, resisted laterotrusion. Botox to B temporalis (15 units), masseters (30 units). JFLS Initial = . Reeval = . FU = Eval: Patient presents today for PT evaluation regarding: B jaw pain and noise (L>R), MARION, tinnitus, cervical painShe reports a flare up of symptoms last week for a few days that has otherwise been managed well with HEP provided at [facility]. Only 1 MARION over the past few weeks. Received TPI injection today with continued reduction in symptoms. Scans taken for potential new oral splint. Potential plan for Botox in a few week. Neck stretches have been doing well in managing symptoms. GONZALO LEON, DPT [address] [facility] [address], [place], [phone], [facility] 02/10/2024 15:23:38 02/24/2024 text/html general HPI for jaw, face, TMD painReported bypatient.Onset:star lyudmila 10 year(s) ago Location:bilateral; masseteric; Left side is worse, but today it feels even. Quality:aching; sharp Severity:nonradiatin g Durationconstant Symptom triggers:clenching; bruxism Aggravating Factors:grinding teeth; clenching the teeth; yawning; wide mouth opening; chewing; talking Alleviating Factors:acetaminophe n; ice; physical therapy; Motrin Associated Symptoms:no jaw clicking; no malocclusion;jaw popping left;tooth pain(left side molars);headaches;ti nnitus(right ear) Prior Tests:panorex Prior Treatment:night time babysitter/oral appliance/splint Prior opiniondentist Patient presents today for follow-up. They report jaw symptoms which are {{improved* stable c hronic chronic and progressive worsened unchanged flared re solved}} since the previous visit. Symptoms and pertinent information along with prior data was reviewed, updated and documented in the patient history of present illness. Patient rates the pain intensity as {{0* 1 2 3 4 5 6 7 8 9 10}} on a scale of 0 to 10. Patient is {{engaged in* not engaged in partially engaged in completed discont inued}} active treatment at this time.Pascale presents for follow up. She states she is having tightness in her shoulders. She did not bring her TMJ splint for review. She is using it nightly with no issues. Jaw pain has significantly improved with the Botox injections. She is able to perceive the effect at this time. She denies adverse effects. Pascale is recovering from neurosurgery. She finds neck and shoulder tightness noticeable which can build into headache. She continues to work on PT exercises and is engaged in physical therapy at this time. She would like to consider trigger point injections. She denies health or medication changes. ANTWON JACKSON, KAITLINS,MS [address] [address], [place], [address], [facility] 02/24/2024 14:49:42 05/05/2024 text/html general HPI for jaw, face, TMD painReported bypatient.Onset:star lyudmila 10 year(s) ago Location:bilateral; masseteric; Left side is worse, but today it feels even. Quality:aching; sharp Severity:nonradiatin g Durationconstant Symptom triggers:clenching; bruxism Aggravating Factors:grinding teeth; clenching the teeth; yawning; wide mouth opening; chewing; talking Alleviating Factors:acetaminophe n; ice; physical therapy; Motrin Associated Symptoms:no jaw clicking; no malocclusion;jaw popping left;tooth pain(left side molars);headaches;ti nnitus(right ear) Prior Tests:panorex Prior Treatment:night time babysitter/oral appliance/splint Prior opiniondentist Patient presents today for follow-up. They report jaw symptoms which are {{improved* stable c hronic chronic and progressive worsened unchanged flared re solved}} since the previous visit. Symptoms and pertinent information along with prior data was reviewed, updated and documented in the patient history of present illness. Patient rates the pain intensity as {{0 1 2 3* 4 5 6 7 8 9 10}} on a scale of 0 to 10. Patient is {{engaged in* not engaged in partially engaged in completed discont inued}} active treatment at this time. Pascale is present for Botox injections. She did not bring her mandibular splint for review. She reports her symptoms are well managed when Botox is in effect. She has noticed the neck and shoulder tightness is returning over the last week. Her jaw pain is improved. she has an upcoming appointment with Dr. Coe. She is doing self care at home. She is working on jaw exercises regularly. Botox - she reports symptoms very helpful. She did not feel the need to use rescue medications. Effect lasts 11 weeks. She denies adverse effects. She reports that the effect started withdrawing in the last week. No recent dental treatments.Intraoral appliance - fits well and uses it regularly.PT exercises -regular. Pascale is recovering well from the neurosurgery. She has started back at work. No recent changes in health. ANTWON JACKSON, KARISHMA,MS [address] [facility] [address], [place], [address], [facility] 05/07/2024 07:02:23 OBGyn Episode No OBEpisode recorded.
--- OUTSIDE RECORDS SUMMARY | 2024-06-24 19:59 | XMS_ITS | Encounter Summary ---
Author Organization [facility] Address [address] [place] [id number] Care Team Providers Care Briquetter Operator Name Role Phone Elsewhere, Pcp Primary Care Provider Unavailabl e Reason for Visit * Reason Comments Med Refill Encounter Details Date Type Department Care Team (Late st Contact Info) Description 05/16/2024 Refill Division of Endocrinology in [place], [place] [address] [place] [phone] Gia Solano M.D. [address] [place] [address] Med Refill Social History Tobacco Use Types Packs/Day Years Used Date Smoking Tobacco: Never Passive Smoke Exposure: Never Smokeless Tobacco: Never Alcohol Use Standard Drinks/Week Comments Never 0 (1 standard drink = 0.6 oz pur e alcohol) [facility] Utilities Answer Date Recorded In the past 12 months has [facility] [employer], gas, oil, or water [employer] threatened to shut off services in your [...] week 05/28/2022 How often do you attend chur or religion services? More than 4 times per year 05/28/2022 Do you belong to any clubs o r organizations such as latter day groups, unions, fraternal or athletic groups, or [...] and heating? Not hard at all 05/28/2022 [facility] - Occupational Stress Questionnaire Answer Date [...] your living situation today? I have a [facility] place to live 01/26/2024 Education Answer Date Recorded What is the highest level of school you have completed or the highest degree you have received? 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
[2024-06-24 20:10] VITALS: BP 129/91; PULSE 105; RESP 18; TEMP 36.6; O2SAT 98; BMI 24.6
--- NOTE | 2024-06-24 20:53 | ED_ITS ---
HPI - General Adult General Chief complaint: Unspecified Complaint, Adult Stated complaint: hemorrhoid, in alot of pain Time Seen by Provider: 06/24/24 20:10 History of Present Illness HPI narrative: This 48-year-old female comes in with painful external hemorrhoid that started up today. She has had hemorrhoids occasionally in the past that she reports started with her 3rd . Related Data Home Medications ?Medication ?Instructions ?Recorded ?Confirmed hydrochlorothiazide 25 mg tablet 25 mg PO DAILY 06/24/24 06/24/24 hydrocortisone 10 mg tablet mg PO 06/24/24 losartan 25 mg tablet 25 mg PO DAILY 06/24/24 06/24/24 vit D3-folic acid-vit B2-B6-B12 tab PO 06/24/24 2,000 unit-800 mcg-0.32 mg tablet Allergies Allergy/AdvReac Type Severity Reaction Status Date / Time nitrofurantoin (From Allergy Severe Verified 01/02/23 04:26 Macrobid) Review of Systems Status of ROS: Reports: 10 or more systems reviewed and unremarkable except as noted in History and below Narrative: Constitutional: No fevers, no weight gain or loss. Eyes: No discharge. No vision changes. HENT: No congestion, no sore throat, no ear pain. Cardiovascular: No chest pain, no palpitations. Respiratory: No shortness of breath, no wheezes, no cough. Gastrointestinal: No abdominal pain, no vomiting, no diarrhea. Genitourinary: No dysuria, no hematuria. Musculoskeletal: Normal range of motion. Skin: No rashes, no pruritis. Neurological: No dizziness, weakness, sensory change, speech change. Endo/Heme/Allergies: No bruising or bleeding. No polydipsia. Pysch: no suicidality, no anxiety, no insomnia. All other systems reviewed and are negative. PFSH PFSH Social History Non-prescribed substance use: denies use service: No Exam Narrative: Exam Narrative: Constitutional: Well-developed, well-nourished, no acute distress. HEENT: Normocephalic, atraumatic. Neck: Normal range of motion. Nontender. Supple. Heart: Intact distal pulses. Lungs: No chest discomfort. No wheezes, rhonchi, or rales. Abdomen: Nontender. Anus: Bulging external hemorrhoid. Back: Normal range of motion. Extremities: Normal range of motion. No injury. Skin: Intact. No rash. Warm. No erythema or pallor. Neurologic: No altered sensation. No weakness. Alert and oriented. Psychiatric: No suicidality. No anxiety or depression. No insomnia. Nursing notes and vitals signs are reviewed. Const: Vital Signs, click to edit/add: Vital Signs - 24 hr 06/24/24 20:10 Temperature 97.9 F Pulse Rate [Right Pulse Oximeter] 105 H Respiratory Rate 18 Blood Pressure [Ri ght Upper Arm] 129/91 H Pulse Oximetry 98 Oxygen Delivery Me thod Room Air Course Vital Signs Vital signs: Initial Vital Signs Temperature 97.9 F 06/24/24 20:10 Temperature Source Temporal Artery Scan 06/24/24 20:10 Pulse Rate 105 H 06/24/24 20:10 Respiratory Rate 18 06/24/24 20:10 Blood Pressure 129/91 H 06/24/24 20:10 Blood Pressure Mean 103 06/24/24 20:10 Blood Pressure Position Sitting 06/24/24 20:10 Pulse Oximetry 98 06/24/24 20:10 Oxygen Delivery Method Room Air 06/24/24 20:10 Vital Signs Temperature 97.9 F 06/24/24 20:10 Pulse Rate 105 H 06/24/24 20:10 Respiratory Rate 18 06/24/24 20:10 Blood Pressure 129/91 H 06/24/24 20:10 Pulse Oximetry 98 06/24/24 20:10 Oxygen Delivery Method Room Air 06/24/24 20:10 Temperature 97.9 F 06/24/24 20:10 Pulse Rate 105 H 06/24/24 20:10 Respiratory Rate 18 06/24/24 20:10 Blood Pressure 129/91 H 06/24/24 20:10 Pulse Oximetry 98 06/24/24 20:10 Oxygen Delivery Method Room Air 06/24/24 20:10 Medical Decision Making MDM Narrative Medical decision making narrative: This patient has an external hemorrhoid that is very painful. She is agreeable to having excised and drained to hopefully remove a clot if necessary. After c leansing the area with alcohol swabs I injected bupivacaine 0.25% for anesthesia. Using a 15. Blade I did open up the hemorrhoid area with an elliptical type of excision and remove some of the external skin and a small clot. The patient is much relieved with the anesthesia and the affects of this procedure. Gauze was wedged in the area of but there was no significant ongoing bleeding. The patient did receive a prescription from the [employer] machine for some tablets of [place]. Discharge Plan Discharge Clinical Impression: External hemorrhoid, thrombosed Patient Disposition: Home, Self-Care Condition: Improved Additional Instructions: Take medication as needed and directed. Follow up with surgery Clinic if ongoing or worsening problems. Okay also to return to emergency department as needed. Prescriptions: No Action losartan 25 mg tablet 25 mg PO DAILY hydrochlorothiazide 25 mg tablet 25 mg PO DAILY hydrocortisone 10 mg tablet PO vit D3-folic [id number] 2,000-800-0.32 unit-mcg-mg tablet PO Follow Up/Referrals: SHI WYMAN DO [Primary Care Provider] - Stand Alone Forms: [employer] Info Instructions
[2024-06-24 21:13] VITALS: BP 132/85; PULSE 89; RESP 16; O2SAT 98
--- OUTSIDE RECORDS SUMMARY | 2024-06-24 21:15 | XMS_ITS | Clinical Summary ---
Author Organization [facility] Address [address] [place] [address] Care Team Providers Care Patternmaker Hand Name Role Phone Juan Jose Mercer MD Primary Care Provider [phone] Allergies Active Allergy Reactions Criticality Noted Date [...] 4 Secondary adrenal insufficiency 10/03/2022 Overview (10/03/2022): [facility] Dr. Solano Pap smear for cervical [...] Type Department Care Team Description 06/24/2024 Telephone [place] [address] [place] [address] Juan Jose Mercer MD Medication Management (Patient is looking for a new prescription. ) 06/14/2024 Telephone [place] [address] [place] [address] Juan Jose Mercer MD Prior Authorization (phentermine-topiramat e 7.5-46 mg (Qsymia) 7.5-46 mg - EXCLUDED) 06/07/2024 Refill [place] [address] [place] [address] Juan Jose Mercer MD Refill Request (Qsymia) 05/16/2024 Refill [place] [address] [place] [address] Juan Jose Mercer MD Refill Request (Qsymia) 05/07/2024 Telephone [place] [address] [place] [address] Juan Jose Mercer MD Results 05/03/2024 3:25 PM CDT Office Visit [place] [phone] [place] [address] Juan Jose Mercer MD Urinary Problem (Possible uti symptoms x2 weeks ) 05/03/2024 Travel 05/01/2024 Refill [place] [phone] [place] [address] Tacho Goyal MD Refill Request (Hydrochlorothiazide) from [...] CDT Respiratory Rate 16 03/06/2024 7:04 PM [facility] Oxygen Saturation 96% 03/06/2024 7:04 PM [facility] Inhaled Oxygen Concentration - - Weight 67.2 [...] Date/Time Associated Diagnosis Comments URINALYSIS MACROSCOPIC - [facility] ONLY POC DIP ([facility]) Routine 05/03/2024 3:22 PM CDT Dysuria URINE CULTURE Routine 05/03/2024 3:21 PM CDT Dysuria URINALYSIS MICROSCOPIC Routine 05/03/2024 3:21 PM CDT Dysuria XR MAMMO ISAMAR BILAT DIAG ROSY 10/06/2023 2:27 PM CDT Mastitis COLONOSCOPY 01/15/2023 1:40 PM [facility] LC HIV-1/O/2, 4TH GENERATION Routine 10/16/2022 3:07 PM CDT Screening for HIV (human immunodeficiency virus) LC HCV ANTIBODY RFX TO QUANT PCR Routine 10/16/2022 3:07 PM CDT Need for hepatitis C screening test LIPID PANEL W REFLEX MEASURED LDL Routine 10/16/2022 3:07 PM CDT Screening cholesterol level LEAN MANAGER THIN PREP PAP SCREEN IMAGED Routine 10/16/2022 2:55 PM CDT Cervical cancer screening from Last 3 Months or Most Recently Relevant to Health Maintenance Results * URINALYSIS MACROSCOPIC - [facility] ONLY POC DIP ([facility]) (05/03/2024 3:22 PM CDT) PH 6.0 5.0 - 8.0 [facility] SPECIFIC GRAVITY 1.010 1.001 - 1.035 [facility] GLUCOSE NEGATIVE NEGATIVE [facility] BILIRUBIN NEGATIVE NEGATIVE [facility] KETONES NEGATIVE NEGATIVE [facility] OCCULT BLOOD NEGATIVE NEGATIVE [facility] PROTEIN NEGATIVE NEGATIVE [facility] NITRITE NEGATIVE NEGATIVE [facility] LEUKOCYTE ESTERASE NEGATIVE NEGATIVE [facility] Urine URINE SPECIMEN / Unknown 05/03/2024 3:22 PM CDT 05/03/2024 3:23 PM CDT Juan Jose Mercer MD URINE Final Resul t Performing Organization Address City/[facility]/ZIP Co de Phone Number [facility] [address] [place] [address], [facility] [address] [facility], [place] [address] * URINALYSIS MICROSCOPIC (05/03/2024 3:21 PM CDT) RBC 0-2 0-2, None Seen /HPF 05/04/2024 12:30 AM CDT [facility] WBC 3-5 0-2, 3-5, None Seen /HPF 05/04/2024 12:30 AM CDT [facility] BACTERIA None Seen None Seen, Rare, Few Bacteria/ HPF 05/04/2024 12:30 AM CDT [facility] EPITHELIAL CELLS None Seen None Seen, Few Epi/HPF 05/04/2024 12:30 AM CDT [facility] HYALINE CASTS 0-2 0-2, 3-5 /LPF 05/04/2024 12:30 AM CDT [facility] Urine URINE SPECIMEN / Unknown Non-Blood / Unknown 05/03/2024 3:21 PM CDT 05/03/2024 3:21 PM CDT us Juan Jose Mercer MD URINE Final Resul t [facility] [address] [place] [address], [place] * (ABNORMAL) URINE CULTURE (05/03/2024 3:21 PM CDT) CULTURE RESULT(A) 05/06/2024 7:08 AM CDT [facility] CULTURE 10,000-50,000 CFU/mL Escherichia coli 05/06/2024 7:08 AM CDT [facility] Urine URINE SPECIMEN / [...] Jose Mercer MD MICROBIOLOGY Final Resul t [facility] [address] [place] [address], * XR MAMMO ISAMAR BILAT DIAG (10/06/2023 [...] - Final * COLONOSCOPY (01/15/2023 1:40 PM [facility]) 01/15/2023 1:40 PM [facility] Narrative Transcriptions Lilli Davis DO - 01/15/2023 [...] adequate candidate for conscious sedation. The endoscope -[id number] was passed through the anus andadvanced to [...] Non Reactive 10/19/2022 11:08 AM CDT [facility]) Blood BLOOD SPECIMEN / Unknown Venipuncture / Unknown 10/16/2022 3:07 PM CDT 10/16/2022 3:09 PM CDT [facility] ([facility]) - 10/19/2022 11:08 AM CDT Performed at: [address] [place] [id number] Curriculum Development Coordinator: Stephon Blas MD, Phone: [phone] Loli Almita Larryqra DO LABORATORY Final Result Performing Organization Address City/[facility]/ZIP Co de Phone Number [facility] ([facility]) [address] [place] [address], * LC HIV-1/O/2, 4TH GENERATION (10/16/2022 3:07 PM CDT) HIV Scr 4th Gen Non Reactive Non Reactive 10/20/2022 8:36 AM CDT [facility] ([facility]) Comment: HIV Negative HIV-1/HIV-2 antibodies and HIV-1 p24 antigen were NOT detected. There is no laboratory evidence of HIV infection. Blood BLOOD SPECIMEN / Unknown Venipuncture / Unknown 10/16/2022 3:07 PM CDT 10/16/2022 3:09 PM CDT [facility] ([facility]) - 10/20/2022 8:36 AM CDT Performed at: [address] [place] [id number] Curriculum Development Coordinator: Stephon Blas MD, Phone: [phone] Loli Almita Flako DO LABORATORY Final Result Performing Organization Address City/[facility]/ZIP Co de Phone Number [facility] ([facility]) [address] [place] [address], * LIPID PANEL W REFLEX MEASURED LDL (10/16/2022 3:07 PM CDT) CHOLESTEROL,TOTAL 178 100 - 199 mg/dL 10/17/2022 5:12 PM CDT [facility] Comment: Cholesterol, Total Reference Ranges Desirable <200 mg/dL Borderline 200-239 mg/dL High >=240 mg/dL TRIGLYCERIDES 140 <150 mg/dL 10/17/2022 5:12 PM CDT [facility] HDL CHOLESTEROL 47 >40 mg/dL 5:12 PM CDT [facility] NON-HDL CHOLESTEROL 131 <145 mg/dl 10/17/2022 5:12 PM CDT [facility] CHOL/HDL RATIO 3.79 <4.50 10/17/2022 5:12 PM CDT [facility] LDL CHOLESTEROL 103 <=130 mg/dL 10/17/2022 5:12 PM CDT [facility] VLDL CHOLESTEROL 28 <=30 mg/dL 10/17/2022 5:12 PM CDT [facility] PROVIDER ORDERED STATUS RANDOM 10/17/2022 5:12 PM CDT [facility] Blood BLOOD SPECIMEN / Unknown Venipuncture / Unknown 10/16/2022 3:07 PM CDT 10/16/2022 3:09 PM CDT us Loli Nolen DO CHEMISTRY Final Result [facility] [address] [place] [address], [place] * LEAN MANAGER THIN PREP PAP SCREEN IMAGED (10/16/2022 2:55 PM CDT) Case Report Gynecologic Cytology Report Case: [id number] Authorizing Provider: Loli Nolen DO Collected: 10/16/2022 1455 Ordering Location: [facility] Received: 10/16/2022 1514 Clinic First Screen: Faviola Cheng Jelani Specimen: LEAN MANAGER ThinPrep Vial Screening, Cervical 10/22/2022 4:08 PM CDT [facility] ENTRAL [facility]ATORY INTERPRETATION/ RESULT NEGATIVE FOR INTRAEPITHELIAL LESION OR MALIGNANCY (NIL) (none) 10/22/2022 4:08 PM CDT [facility] at 1608 CDT SPECIMEN ADEQUACY Satisfactory for evaluation Endocervical component present 10/22/2022 4:08 PM CDT [facility] HPV REQUEST HPV and PAP 10/22/2022 4:08 PM CDT [facility] Date of LMP N/A (endometrial ablation) 10/22/2022 4:08 PM CDT [facility] Last Pap Date 12/22/17 10/22/2022 4:08 PM CDT [facility] Last Pap Result NIL 4:08 PM CDT [facility] Abnormal Pap or [place] Bx in last 5 years No 10/22/2022 4:08 PM CDT [facility] Menstrual Status Irregular Periods 10/22/2022 4:08 PM CDT [facility] [place] Bx Done Today No 10/22/2022 4:08 PM CDT [facility] Additional Information None given 10/22/2022 4:08 PM CDT [facility] Comment: Cytology is screened at [facility] - [address], [place] [address] and [facility] - [address] [address] [address] [facility] - [address] [place] [address] [facility] - [address], [place] [address] Automated Review Successful 10/22/2022 4:08 PM CDT [facility] Comment:Specimen processed s uccessfully by automated academic affairs dean device, ThinPrep Imaging System, [employer] ANCILLARY TESTING LEAN MANAGER HPV Ordered, Please see separate report 10/22/2022 4:08 PM CDT [facility] Note The pap test is [...] lesions. 10/22/2022 4:08 PM CDT [facility]AL LAB[facility] Other (Cervical) Non-Blood / Unknown 10/16/2022 2:55 PM CDT 10/16/2022 3:14 PM CDT us Loli Nolen DO PATHOLOGY/CYTOLOGY Final Resu lt [facility] LAB[facility] [address] [place] [address], [place] from Last 3 Months or Most Recently Relevant to Health Maintenance Insurance [facility] Advance Directives * Full Code (Latest Code Status on File) Date Activated Date Inactivated Comments 01/15/2023 12:36 PM 01/15/2023 5:25 PM Question Answer Comments Code Status Discussion: Discussed * Full Code Date Activated Date Inactivated Comments 02/14/2022 9:34 AM 02/14/2022 6:13 PM Question Answer Comments Code Status Discussion: Reviewed Preferences Care Teams Patternmaker Hand Relationship Specialty [place] [id number] [address] [id number] PCP - General Family Practice 08/15/23
--- OUTSIDE RECORDS SUMMARY | 2024-06-24 21:15 | XMS_ITS | Encounter Summary ---
Author Organization [facility] Address [address] [place] [address] Care Team Providers Care Housekeeping Aide Name Role Phone Elsewhere, Pcp Primary Care Provider Unavailabl e Reason for Visit * Reason Comments Med Refill Encounter Details Date Type Department Care Team (Late st Contact Info) Description 05/16/2024 Refill Division of Endocrinology in [place], [place] [address] [place] [phone] Gia Solano M.D. [address] [place] [address] Med Refill Social History Tobacco Use Types Packs/Day Years Used Date Smoking Tobacco: Never Passive Smoke Exposure: Never Smokeless Tobacco: Never Alcohol Use Standard Drinks/Week Comments Never 0 (1 standard drink = 0.6 oz pur e alcohol) [facility] Utilities Answer Date Recorded In the past 12 months has [facility] [employer], gas, oil, or water [employer] threatened to shut off services in your [...] How often do you attend chur or hoahaoism services? More than 4 times per year 05/28/2022 Do you belong to any clubs o r organizations such as episcopal groups, unions, fraternal or athletic groups, or [...] and heating? Not hard at all 05/28/2022 [facility] - Occupational Stress Questionnaire Answer Date [...] your living situation today? I have a [facility] place to live 01/26/2024 Education Answer Date Recorded What is the highest level of school you have completed or the highest degree you have received? 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
--- OUTSIDE RECORDS SUMMARY | 2024-06-24 21:15 | XMS_ITS | Clinical Summary ---
Author Organization [facility] Address [address] [place] [address] Care Team Providers Care Seismic Survey Assistant Name Role Phone Elsewhere, Pcp Primary Care Provider Unavailabl e Source Comments Patient records contain information from all sites at [facility]. For routine questions regarding patient records, call [phone] during business hours, M-F 8:00 AM - 5:00 PM Central Time. Record requests for emergency care only can be directed to [phone] at any time.[facility] Allergies Active Allergy Reactions Criticality [...] or vomiting. 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 Solano Chronic Tension Type Headache Not Intractable Deficiency Vitamin D 01/07/2018 Impaired Fasting Glucose 01/06/2018 Anxiety Disorder Unspecified 03/09/2012 Migraine Without Aura Not In tractable Without Status Migrainosus 03/09/2012 Overview (12/28/2023): Rarely with aura Encounters Date Type Department Care Team Description 05/16/2024 Refill Division of Endocrinology in [place], [place] [address] [place] [phone] Gia Solano M.D. Med Refill 04/28/2024 Clinical Communication Division of Endocrinology in [place], [place] [address] [place] [phone] Cecilia Lyon R.N. 04/27/2024 11:45 AM RAILROAD YARD WORKER Office Visit Department of Neurologic Surgery in [place], [place] [address] [place] [phone] Zan Schmidt M.D. Natt, Neena, M.D. Prolactinoma (HCC) (Primary Dx); Neuroma Acoustic (HCC) 04/27/2024 10:30 AM RAILROAD YARD WORKER Office Visit Division of Endocrinology in [place], [place] [address] [place] [phone] Gia Solano M.D. Prolactinoma (HCC) 04/27/2024 6:01 AM RAILROAD YARD WORKER - 04/27/2024 11:59 PM RAILROAD YARD WORKER Hospital Encounter Department of Radiology, [facility] in [place], [place] [address] [place] [phone] Zan Schmidt M.D. Prolactinoma (HCC) Discharge Disposition: Home or Self Care 04/23/2024 4:00 PM RAILROAD YARD WORKER Clinical Communication Virtual Review in [place], [place] [address] [place] [phone] Pre-visit Intake 03/29/2024 11:05 PM RAILROAD YARD WORKER Ancillary Procedure Department of Otorhinolaryngology 03/29/2024 4:30 PM RAILROAD YARD WORKER Office Visit Department of Otorhinolaryngology in [place], [place] [address] [place] [phone] Paloma Kline M.D. Prolactinoma (HCC) (Primary Dx) 03/29/2024 4:15 PM RAILROAD YARD WORKER Ancillary Procedure Department of Otorhinolaryngology from Last [...] drink = 0.6 oz pur e alcohol) [facility] Utilities Answer Date Recorded In the past 12 months has [employer], oil, or water [employer] threatened to shut off services in your [...] week 05/28/2022 How often do you attend [facility] or yazidism services? More than 4 times per year 05/28/2022 Do you belong to any clubs o r organizations such as protestant groups, unions, fraternal or athletic groups, or [...] and heating? Not hard at all 05/28/2022 [facility] - Occupational [...] your living situation today? I have a [facility] place to live 01/26/2024 Education Answer Date Recorded What is the highest level of school you have completed or the highest degree you have received? 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, HARISH) 05/31/2021 Comments No Sex and Gender Information Value Date Recorded Sex Assigned at Female 05/31/2021 8:48 AM CDT Legal Sex Female 9:24 PM CDT Gender Identity Female 05/31/2021 8:48 AM CDT Sexual Orientation Straight 05/31/2021 8: 48 AM CDT Last Filed Vital Signs Vital Sign Reading Time Taken Comments Blood Pressure 130/93 04/27/2024 10:10 AM RAILROAD YARD WORKER Pulse 86 04/27/2024 10:10 AM RAILROAD YARD WORKER Temperature 36.8 C (98.2 F) 01/27/2024 9:00 AM RAILROAD YARD WORKER Respiratory Rate 16 01/27/2024 9:00 AM RAILROAD YARD WORKER Oxygen Saturation 98% 01/27/2024 9:00 AM RAILROAD YARD WORKER Inhaled Oxygen Concentration - - Weight 68.6 kg (151 lb 3.8 oz) 04/27/2024 10:10 AM RAILROAD YARD WORKER Height 167.1 cm (5' 5.79) 04/27/2024 10:[address] Body Mass Index 24.57 04/27/2024 10:10 AM RAILROAD YARD WORKER Plan of Treatment Health Maintenance Due Date [...] this topic Medical Devices Implanted Type Area [employer] Device Identifier Shelf Expiration Date Model / Serial / Lot Imaging Marker Imaging Marker Right: Breast Mesh Or Patch Mesh or Patch Abdomen Procedures Procedure Name Priority Date/Time Associated Diagnosis Comments CORTISOL, S Routine 04/27/2024 7:59 AM RAILROAD YARD WORKER Prolactinoma (HCC) CREATININE WITH EGFR, S/P Routine 2024 7:59 AM RAILROAD YARD WORKER Prolactinoma (HCC) T4 (THYROXINE), FREE, S Routine 04/28/19 7:59 AM RAILROAD YARD WORKER Prolactinoma (HCC) PROLACTIN, S Routine 04/27/2024 7:59 AM RAILROAD YARD WORKER Prolactinoma (HCC) SODIUM, S/P Routine 04/27/2024 7:59 AM RAILROAD YARD WORKER Prolactinoma (HCC) MR PITUITARY WITHOUT AND WITH IV CONTRAST RAD - Routine (most inpatients and all outpatients) 04/27/2024 7:32 AM RAILROAD YARD WORKER Prolactinoma (HCC) OTORHINOLARYNGOLOGY IMAGE EXAM Routine 03/29/2024 11:05 PM RAILROAD YARD WORKER OTORHINOLARYNGOLOGY IMAGE EXAM Routine 03/29/2024 4:14 PM RAILROAD YARD WORKER BASIC METABOLIC PANEL, S/P Timed 01/27/2024 6:41 AM RAILROAD YARD WORKER OUTSIDE MG MAMMOGRAM Routine 05/09/2021 2:20 PM CDT from Last 3 Months or Most Recently Relevant to Health Maintenance Results * Prolactin (04/27/2024 7:59 AM RAILROAD YARD WORKER) Prolactin Total 14.7 4.8 - 23.3 ng/mL 04/27/2024 11:16 AM RAILROAD YARD WORKER DTL Comment: ----ADDITIONAL INFORMATION---- The testing method is an electrochemiluminescence assay manufactured by [employer] and performed on the Sherri system. Values obtained with different assay methods or kits may be different and cannot be used interchangeably. Test results cannot be interpreted as absolute evidence for the presence or absence of malignant disease. Blood (Blood, Venous) 04/27/2024 7:59 AM RAILROAD YARD WORKER 04/27/2024 8:39 AM RAILROAD YARD WORKER us Gia Solano M.D. LAB BLOOD ADD-ON Final Result [facility] [address] [place] [address], [facility] [address] [place] [address] * T4 (Thyroxine), Free (04/27/2024 7:59 AM RAILROAD YARD WORKER) T4 (Thyroxine), Free, S 1.1 0.9 - 1.7 ng/dL 04/27/2024 11:16 AM RAILROAD YARD WORKER DT Blood (Blood, Venous) 04/27/2024 7:59 AM RAILROAD YARD WORKER 04/27/2024 8:39 AM RAILROAD YARD WORKER us Gia Solano M.D. LAB BLOOD ADD-ON Final Result [facility] [address] [place] [address] * Sodium (04/27/2024 7:59 AM RAILROAD YARD WORKER) Pathologist [facility] Sodium, S 141 135 - 145 mmol/L 04/27/2024 11:16 AM RAILROAD YARD WORKER DT Blood (Blood, Venous) 04/27/2024 7:59 AM RAILROAD YARD WORKER 04/27/2024 8:39 AM RAILROAD YARD WORKER us Gia Solano M.D. LAB BLOOD ADD-ON Final Result [facility] [address] [place] [address], [facility] [address] [place] [address] * Creatinine with Estimated GFR (04/27/2024 7:59 AM RAILROAD YARD WORKER) Creatinine 0.98 0.59 - 1.04 mg/dL 04/27/2024 11:16 AM RAILROAD YARD WORKER DTL Estimated GFR (eGFR) 71 >=60 mL/min/BSA 04/27/2024 11:16 AM RAILROAD YARD WORKER DTL Comment: Estimated GFR calculated using the 2020 CKD_EPI creatinine equation. Blood (Blood, Venous) 04/27/2024 7:59 AM RAILROAD YARD WORKER 04/27/2024 8:39 AM RAILROAD YARD WORKER Gia Solano M.D. LAB BLOOD ADD-ON Final Result Performing Organization Address City/[facility]/ZIP Co de Phone Number [facility] [address] [place] [address] * Cortisol (04/27/2024 7:59 AM RAILROAD YARD WORKER) Cortisol AM Result 5.3 4.8 - 20 mcg/dL 04/27/2024 11:16 AM RAILROAD YARD WORKER DTL Blood (Blood, Venous) 04/27/2024 7:59 AM RAILROAD YARD WORKER 04/27/2024 8:39 AM RAILROAD YARD WORKER Gia Solano M.D. LAB BLOOD ADD-ON Final Result Performing Organization Address [facility] Co de Phone Number [facility] [address] [place] [address] * MR Pituitary without and with IV Contrast (04/27/2024 7:32 AM RAILROAD YARD WORKER) Anatomical Region Laterality Modality Head, Neuroradiology RST LOS , Neuroradiology ARZ LOS, Neuroradiology FLA LOS N/A Magnetic Resonance Impressions 04/27/2024 8:50 AM RAILROAD YARD WORKER 1. Interval postoperative changes of pituitary microadenoma resection without evidence of residual/recurrent disease. 2. 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 Narrative 04/27/2024 8:50 AM RAILROAD YARD WORKER EXAM: MR PITUITARY WITHOUT AND WITH IV [...] linear enhancement about the periphery of the [id number] resection cavity (series 9, image 197 and [...] Nasal Endoscopy-Otorhinolaryngology Image Exam (03/29/2024 11:05 PM RAILROAD YARD WORKER) Only the most recent of2 resultswithin the time period is included. Narrative IINV - 03/30/2024 9:58 AM RAILROAD YARD WORKER This order has been created and auto-finalized to support the import of images acquired without order. The clinical documentation to support these images can be found on the encounter that produced images. us Provider Not In System IMG NON RAD IMAGING PROCE DURES Final Result IINV NA * (ABNORMAL) Basic Metabolic Panel (01/27/2024 6:41 AM RAILROAD YARD WORKER) Potassium, S 4.0 3.6 - 5.2 mmol/L 01/27/2024 8:23 AM RAILROAD YARD WORKER DTL Sodium, S 135 135 - 145 mmol/L 01/27/2024 8:23 AM RAILROAD YARD WORKER DTL Chloride, S 100 98 - 107 mmol/L 01/27/2024 8:23 AM RAILROAD YARD WORKER DTL Bicarbonate, S 25 22 - 29 mmol/L 01/27/2024 8:23 AM RAILROAD YARD WORKER DTL Anion Gap 10 7 - 15 01/27/2024 8:23 AM RAILROAD YARD WORKER DTL BUN (Blood Urea Nitrogen), S 9 6 - 21 mg/dL 01/27/2024 8:23 AM RAILROAD YARD WORKER DTL Creatinine 0.70 0.59 - 1.04 mg/dL 01/27/2024 8:23 AM RAILROAD YARD WORKER DTL Estimated GFR (eGFR) >90 >=60 mL/min/BSA 01/27/2024 8:23 AM RAILROAD YARD WORKER DTL Comment: Estimated GFR calculated using the 2020 CKD_EPI creatinine equation. Calcium, Total, S 8.9 8.6 - 10.0 mg/dL 01/27/2024 8:23 AM RAILROAD YARD WORKER DTL Glucose, S 160(H) 70 - 140 mg/dL 01/27/2024 8:23 AM RAILROAD YARD WORKER DTL Blood (Blood, Venous) 01/27/2024 6:41 AM RAILROAD YARD WORKER 01/27/2024 7:57 AM RAILROAD YARD WORKER us Ila Sneed M.D., Ph.D. LAB BLOOD ADD-ON Fi nal Result [facility] [address] [place] [address], [facility] DTL [facility] [address] [place] [address] * XR MAMMO POST CLIP PLCMT RT-Outside [...] Most Recently Relevant to Health Maintenance Insurance [facility] Advance Directives For more information, please contact: [phone] * Full Code (Latest Code Status on File) Date Activated Date Inactivated Comments 01/26/2024 6:48 PM 01/27/2024 3:56 PM Question Answer Comments Full Code: Not Discussed Due to: Patient not available * Full Code Date Activated Date Inactivated Comments 01/26/2024 11:42 AM 01/26/2024 6:48 PM Question Answer Comments Full Code: Not Discussed Due to: Patient not available Care Teams Seismic Survey Assistant Relationship Specialty Start Date End Date Elsewhere, Pcp PCP - General Internal Medicine 04/23/24
== END 2024-06-24 21:15 | disposition home or self-care (01) ==
LOC: ED 21:13
PROVIDERS: Emergency Provider Emergency Medicine Emergency Medical Services; PCP Student in an Organized Health Care Education/Training Program
DX: K64.5 Perianal venous thrombosis (principal)
CPT/HCPCS: 46320; 99283; 99284

== ENCOUNTER 2024-07-11 09:29 | Emergency (ER) | payer BC, SELFPAY ==
[2024-07-11 09:43] VITALS: BP 160/104; PULSE 87; RESP 18; TEMP 36.8; O2SAT 98; BMI 24.1
--- NOTE | 2024-07-11 10:18 | ED_ITS ---
HPI - General Adult General Date Seen: 07/11/24 Chief complaint: Nausea/Vomiting Stated complaint: vomiting Time Seen by Provider: 07/11/24 10:05 History of Present Illness HPI narrative: Patient is a 49-year-old woman here with for evaluation of vomiting which started abruptly at 8:00 a.m. this morning. She said 1 soft stool nonbloody. A little bit of abdominal pain when she is vomiting but otherwise no severe or localized abdominal pain. No fevers or rashes. It was her birthday yesterday, she had a couple of drinks last night but generally does not drink a lot. Does not smoke, is status post C-sections and hernia surgery, denies other significant abdominal surgeries. Does have a history of a pituitary lesion removal in January. Thinks she may have eaten seafood that was not good last night. Tried Zofran this morning at home without improvement. Related Data Home Medications ?Medication ?Instructions ?Recorded ?Confirmed hydrochlorothiazide 25 mg tablet 25 mg PO DAILY 06/24/24 07/11/24 hydrocortisone 10 mg tablet mg PO 06/24/24 losartan 25 mg tablet 25 mg PO DAILY 06/24/24 07/11/24 vit D3-folic acid-vit B2-B6-B12 tab PO 06/24/24 2,000 unit-800 mcg-0.32 mg tablet Allergies Allergy/AdvReac Type Severity Reaction Status Date / Time nitrofurantoin (From Allergy Severe Verified 07/11/24 09:47 Macrobid) Review of Systems Status of ROS: Reports: 10 or more systems reviewed and unremarkable except as noted in History and below PFSH PFS Social History Smoking Status: Never smoker How often do you have a drink containing alcohol: never AUDIT-C Alcohol total score: 0 Non-prescribed substance use: denies use service: No Exam Narrative: Exam Narrative: Vital signs reviewed In general, alert, nontoxic mid age woman. She looks miserable but otherwise not toxic. Head: Normocephalic, atraumatic. Eyes: Sclera clear. Pupils equal and reactive. ENT: Mucous membranes moist. Neck: Supple without adenopathy. Heart: Regular rate and rhythm without murmur. Lungs: Clear. No increased work of breathing, crackles or wheezes. Abdomen: Soft, nontender to palpation. Extremities: Well perfused, pulses intact. No significant edema. Neurologic: Alert, conversant. Speech fluent, face symmetric. Moves all extremities equally. Skin: Warm, dry well perfused. Affect: Normal. Const: Vital Signs, click to edit/add: Vital Signs - 24 hr 07/11/24 09:43 Temperature 98.2 F Pulse Rate [Right Pulse Oximeter] 87 Respiratory Rate 18 Blood Pressure [Ri ght Upper Arm] 160/104 H Pulse Oximetry 98 Oxygen Delivery Me thod Room Air Course Course ED Course: Patient presents with vomiting, no diarrhea, no significant abdominal pain and a benign abdominal exam, diagnostic considerations would include viral gastroenteritis, food-borne illness, pancreatitis, appendicitis, biliary colic, cholecystitis, bowel obstruction, diverticulitis, among others. He does not have any urinary symptoms or fever, doubt that this is related to urinary pathology. We did place an IV, gave her Reglan here as well as L of normal saline and some Toradol. She feels significantly improved with these measures. Labs are notable for mildly elevated white blood cell count of 13.44, somewhat nonspecific and I think likely related to demargination, hemoglobin and platelets are normal. Metabolic panel is entirely within normal limits, blood sugar is 98, LFTs are normal, CRP less than 0.5, lipase 59. Urinalysis is notable for 0-2 red cells, 2-5 white cells, no ketones. She is feeling well at this point, has tolerated clear liquids. Abdominal exam remains benign. My concern for a surgical cause for her symptoms remains low. I think the risk of imaging outweighs the benefit at this point. Would recommend conservative treatment, antiemetics, clear liquids, did discuss that if symptoms are food- borne or viral I would not expect them to persist beyond a couple of days, so if she is not improving in that time frame she should be seen again for recheck. Discussed reasons to return such as severe or focal abdominal pain, fevers, black or bloody stools, or other significant changes. Prescribed Zofran from [facility]. Vital Signs Vital signs: Initial Vital Signs Temperature 98.2 F 07/11/24 09:43 Temperature Source Temporal Artery Scan 07/11/24 09:43 Pulse Rate 87 07/11/24 09:43 Pulse Rhythm Regular 07/11/24 09:43 Pulse Strength 3+ Normal 07/11/24 09:43 Respiratory Rate 18 07/11/24 09:43 Blood Pressure 160/104 H 07/11/24 09:43 Blood Pressure Mean 122 H 07/11/24 09:43 Blood Pressure Position Sitting 07/11/24 09:43 Pulse Oximetry 98 07/11/24 09:43 Oxygen Delivery Method Room Air 07/11/24 09:43 Vital Signs Temperature 98.2 F 07/11/24 09:43 Pulse Rate 87 07/11/24 09:43 Respiratory Rate 18 07/11/24 09:43 Blood Pressure 160/104 H 07/11/24 09:43 Pulse Oximetry 98 07/11/24 09:43 Oxygen Delivery Method Room Air 07/11/24 09:43 Temperature 98.2 F 07/11/24 09:43 Pulse Rate 87 07/11/24 09:43 Respiratory Rate 18 07/11/24 09:43 Blood Pressure 160/104 H 07/11/24 09:43 Pulse Oximetry 98 07/11/24 09:43 Oxygen Delivery Method Room Air 07/11/24 09:43 Medications Administered Medications: Discontinued Medications Generic Name Dose Route Start Last Admin Trade Name Freq PRN Reason Stop Dose Admin Sodium Chloride 1,000 mls @ 1,000 mls/hr 07/11/24 10:15 07/11/24 10:28 0.9 % Sodium Chloride 1000 Ml IV 07/11/24 11:14 1,000 mls/hr .Q1H YRAN Administration Metoclopramide HCl 10 mg/ 102 mls @ 306 mls/hr 07/11/24 10:09 07/11/24 10:30 Sodium Chloride IVPB 07/11/24 10:10 306 mls/hr ONCE ONE Administration Ketorolac Tromethamine 15 mg 07/11/24 10:09 07/11/24 10:28 Ketorolac 15 Mg/Ml Inj IVP 07/11/24 10:10 15 mg ONCE ONE Administration Medical Decision Making Lab Data Labs: Lab Results 07/11/24 07/11/24 Range/Units 10:20 10:55 WBC 13.44 H (4.50-11.00) K/uL RBC 4.41 (4.00-5.20) m/uL Hgb 13.7 (12.0-16.0) gm/dL Hct 40.5 (33.0-51.0) % MCV 92 (80-100) fL MCH 31 (26-34) pg MCHC 34 (32-36) gm/dL RDW Coeff of Marly 11.9 (11.5-15.5) % Plt Count 299 (140-440) K/uL Neut % (Auto) 84.0 H (42.0-72.0) % Lymph % (Auto) 9.5 L (20-44) % [place] % (Auto) 5.6 (0.0-11.0) % Eos % (Auto) 0.4 (0.0-7.0) % Baso % (Auto) 0.2 (0.0-3.0) % Neut # (Auto) 11.30 H (1.7-7.0) K/uL Lymph # (Auto) 1.30 (0.90-2.90) K/uL [place] # (Auto) 0.80 (0.00-0.90) K/UL Eos # (Auto) 0.10 (0.00-0.50) K/uL Baso # (Auto) 0.00 (0.00-0.30) K/uL Abs Immat Gran (auto) 0.00 (0.00-0.30) K/uL Imm/Tot Granulo (auto) 0.3 % Sodium 143 (135-149) mmol/L Potassium 4.0 (3.6-5.1) mmol/L Chloride 107 (96-114) mmol/L Carbon Dioxide 28 (20-32) mmol/L Anion Gap 8 (7-15) mEq/L BUN 12 (7-30) mg/dL Creatinine 0.8 (0.5-1.5) mg/dL Estimated Creat Clear 75.70 Estimated GFR 90 ml/min Glucose 98 (60-115) mg/dL Lactate 1.4 (0.5-1.9) mmol/L Calcium 9.4 (8.4-10.6) mg/dL Magnesium 2.1 (1.5-2.6) mg/dL Total Bilirubin 0.8 (0.1-1.5) mg/dL Direct Bilirubin 0.3 (0.0-0.5) mg/dL AST 27 (12-35) U/L ALT 33 (4-35) U/L Alkaline Phosphatase 57 (40-150) U/L C-Reactive Protein < 0.5 L (0.5-1.0) mg/dL Total Protein 7.6 (6.0-8.3) g/dL Albumin 4.7 (3.3-5.0) g/dL Lipase 59 (23-300) U/L Urine Color Yellow (Yellow) Urine Appearance Cloudy A (Clear) Urine pH 7.5 (5.0-8.5) Ur Specific [place] 1.015 (1.000-1.030) Urine Protein 2+ A (Negative) Urine Glucose (UA) Negative (Negative) Urine Ketones Negative (Negative) Urine Blood Negative (Negative) Urine Nitrite Negative (Negative) Urine Bilirubin Negative (Negative) Urine Urobilinogen 0.2 (0.2-1.0) Ur Leukocyte Esterase Negative (Negative) Urine RBC 0-2 (0-2) Urine WBC 2-5 (0-5) Ur Squamous Epith Cells Few (None-Few) Amorphous Sediment Many A (None) Urine Bacteria Few A (None) Discharge Plan Discharge Clinical Impression: Vomiting Patient Disposition: Home, Self-Care Condition: Stable Instructions: Acute Nausea and Vomiting (DC) Additional Instructions: You can use Zofran if needed for further nausea/vomiting. I would stick with clear liquids today, advance diet as your stomach feels able. If you have severe or localized abdominal pain, fevers, bloody stools or other new or wor sening symptoms, return any time for re-evaluation. The vomiting should not persist beyond a day or 2, so if it does you should be seen again for recheck. Prescriptions: No Action losartan 25 mg tablet 25 mg PO DAILY hydrochlorothiazide 25 mg tablet 25 mg PO DAILY hydrocortisone 10 mg tablet PO vit D3-folic opmp-F7-W3-B12 2,000-800-0.32 unit-mcg-mg tablet PO Follow Up/Referrals: SHI WYMAN DO [Primary Care Provider] - Stand Alone Forms: [employer] Info Instructions
[2024-07-11 10:25] LABS: Lactate Sepsis w/Reflex* 1.4 mmol/L (0.5-1.9)
[2024-07-11] MEDS: KETOROLAC 15 MG/ML inj IVP (10:28)
[2024-07-11] MEDS: 0.9 % SODIUM CHLORIDE 1000 ml 1,000 ML IV (10:28)
[2024-07-11 10:29] LABS: Basophils Percent Auto 0.2 % (0.0-3.0); Eosinophils Percent Auto 0.4 % (0.0-7.0); Hematocrit 40.5 % (33.0-51.0); Hemoglobin* 13.7 gm/dL (12.0-16.0); Immature Granulocytes Pct Auto 0.3 %; Lymphocytes Percent Auto 9.5 % (20-44); Mean Corpuscular HGB Conc 34 gm/dL (32-36); Mean Corpuscular Hemoglobin 31 pg (26-34); Mean Corpuscular Volume 92 fL (80-100); Monocytes Percent Auto 5.6 % (0.0-11.0); Platelet Count* 299 K/uL (140-440); RDW Coefficient of Variation % 11.9 % (11.5-15.5); Red Blood Count 4.41 m/uL (4.00-5.20); White Blood Count* 13.44 K/uL (4.50-11.00)
[2024-07-11] MEDS: METOCLOPRAMIDE HCL 10 MG in 0.9 % SODIUM CHLORIDE 100 ml 100 ML 306 MG IVPB (10:30)
[2024-07-11 10:38] LABS: Slide Review Reflex No
[2024-07-11 10:45] LABS: Albumin* 4.7 g/dL (3.3-5.0); Chloride* 107 mmol/L (96-114)
[2024-07-11 10:46] LABS: Sodium* 143 mmol/L (135-149)
[2024-07-11 10:48] LABS: Blood Urea Nitrogen* 12 mg/dL (7-30); Creatinine* 0.8 mg/dL (0.5-1.5); Estimated Glomerular Filt Rate 90 ml/min
[2024-07-11 10:49] LABS: Alanine Aminotransferase* 33 U/L (4-35); Alkaline Phosphatase* 57 U/L (40-150); Anion Gap 8 mEq/L (7-15); Aspartate Amino Transferase* 27 U/L (12-35); Bilirubin Direct* 0.3 mg/dL (0.0-0.5); Bilirubin Total* 0.8 mg/dL (0.1-1.5); Calcium* 9.4 mg/dL (8.4-10.6); Carbon Dioxide* 28 mmol/L (20-32); Glucose* 98 mg/dL (60-115); Lipase* 59 U/L (23-300); Magnesium* 2.1 mg/dL (1.5-2.6); Total Protein* 7.6 g/dL (6.0-8.3)
[2024-07-11 10:56] LABS: C Reactive Protein* < 0.5 mg/dL (0.5-1.0)
[2024-07-11 11:07] LABS: Appearance Urine Cloudy (Clear); Bilirubin Urine Negative (Negative); Blood Urine Negative (Negative); Color Urine Yellow (Yellow); Glucose Urine Negative (Negative); Ketones Urine Negative (Negative); Leukocyte Esterase Urine Negative (Negative); Nitrite Urine Negative (Negative); Protein Urine 2+ (Negative); Specific Gravity Urine 1.015 (1.000-1.030); Urobilinogen Urine 0.2 (0.2-1.0); pH Urine 7.5 (5.0-8.5)
[2024-07-11 11:16] LABS: Amorphous Sediment Urine Many; Bacteria Urine Few; RBC Urine 0-2 (0-2); Squamous Epithelial Cell Urine Few (None-Few)
--- OUTSIDE RECORDS SUMMARY | 2024-07-11 17:45 | XMS_ITS | Data Portability ---
Author Organization [place] [facility] Address [address] [address] Care Team Providers Care Lead Cook Name Role Phone POWER GEORGE DENTAL Referring Provider [phone] GAEL WYMAN Primary Care Provider [phone] Assessment Encounter Date Assessment Date Assessment LastModified by Organization Details LastModified Time 02/10/2024 02/10/2024 Today I reviewed the diagnosis, [...] effects and goals. 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 I reinforced self care and [...] in 3-4 months. Not available 05/07/2024 07:01:42 06/29/2024 06/29/2024 Today I reviewed the diagnosis, contributing factors and treatment options. I reviewed and reinforced continued use of self care and home exercises. I encouraged daily home care use which may consist of heat and ice compresses, oral habit reduction and relaxation techniques. The intraoral appliance was adjusted to patient comfort. Bilateral posterior contacts were established. I recommended regular use of the appliance. Pascale presents in a flare, symptoms are consistent with previous flares. Symptoms are primarily muscular in nature. I reinforced self care and continued treatment with physical therapy. I discussed the interplay of stress, autonomic up-regulation and muscle tension. I recommended taking mini-breaks during the day, relaxed breathing, postural checks to reduce continued build-up of muscle tightness. I discussed medication options including trial of muscle relaxant. Today a prescription for Tizanidine 4 mg qhs, was provided to the patient. The risks and benefits associated with the prescribed medication was discussed with the patient today. Patient was asked to discontinue medication intake and return to clinic if significant side effects were noted from the medication. A round of trigger point injections was completed today. No intra-operative complications were encountered. I recommended use of ice compress and avoiding manipulation of injection site. She will also monitor for symptom improvement with the injections. Pascale has a high recording of blood pressure as well. I suggested improved hydration, monitoring blood pressure regularly and if readings are consistently high, to bring this to primary care provider at the upcoming visit. Pascale reports understanding. I recommended follow up in 2-4 weeks. History today was obtained from the patient. The patient has 5+ diagnoses which we are addressing. Their symptoms are flared. This case is moderate complexity because of [...] that (s)he return for follow-up care in 2-4 weeks. Not available 07/02/2024 07:15:20 06/29/2024 06/29/2024 Reevaluation performed today to update and measure objective findings, modify goals as noted and modify POC frequency and duration. POC was modified today. Discussion of progress and new plan with patient with patient agreement. Patient is progressing with improvement. Frequency: will be 1x/2 weeks for 12 weeks, tapering as able for a total of 8 visits over 3 months. [email or web address] Not available 06/30/2024 15:38:54 Plan of Treatment Reminders Order Date Submit Date Provider Last Modified By Organization Details Last Modified Time Details Appointments FOL-UP W/TPI 2024 04:00P M ANTWON JACKSON BDS,MS Not available Not available Not available BOTOX FU 2024 04:00P M ANTWON JACKSON BDS,MS Not available Not available Not available Evaluatio n 2024 01:30P M Roel Coe MD Not available Not available Not available Lab None recorded. Referral None recorded. Procedures None recorded. Surgeries None recorded. Imaging None recorded. Medication Orders tizanidin e 4 mg tablet 2024 025 [facility]/Pharmacy #[id number], [address], [place], [address], 07/02/2024 07:15:50 Patient Targets Encounter Date Encounter Id Patient Goals Patient Target Last Modified By Organization Details Last Modified Time MCC goals (to be met in 12 weeks):*Patient will report improved score on JFWL by at least 10%, indicating clinically significant improvement in self-reported level of function to allow patient to safely achieve pre-onset level of function. - NOT MET*Patient will demonstrate the ability to open jaw to 40mm IO without compensations, noticeable difficulty or pain greater than 2/10 to allow for adequate jaw function for chewing food of all types and consistencies without compensation or difficulty. - MET*Patient will report proper resting jaw position at least 75% of the day when not using jaw to decrease masticatory tension to allow for adequate jaw function such as eating or talking without compensation or difficulty. - ADDED [email or web address] Not available 06/30/2024 15:41:05 Patient Instructions Encounter Date Encounter Id Patient Instructions Last Modified By Organization Details Last Modified Time 06/29/2024 [id number] Total treatment time minutes today: 45 [employer] Access Code: [email or web address]; At-Home Strengthening Code: [id number] Next Visit Plan: provide additional resources to facilitate SNS and jaw relaxation such as breathing techniques to use during school day; review at-home strengthening program to promote compliance and continue building resiliency Patient/Therapist Goals: chew without pain, reduce tension Progress Note Date: 09/28/2024 [email or web address] Not available 06/30/2024 15:42:34 Reason for Referral None Reported. Problems Name Problem SNOMED Code Status Onset Date Resolution Date Notes Provider Name and Address Organization Details Recorded Time Bilateral temporoma ndibular joint pain 752643456292 42790 Active 2023 ANTWON JACKSON BDS,MS [address], [place], [address], [facility] 18:26:40 Sleep related bruxism 618189942 Active 2023 ANTWON RENETTA, BDS,MS [address], [place], [address], [place] [facility] 4 18:26:47 Chronic tension-t ype headache 942910183 Active 2023 ANTWONKAITLIN PAYTONS,MS [address], [place], [address], [place] [facility] 4 18:26:56 Migraine without aura 89637631 Active 2023 KAITLIN CANTUS,MS [address], [place], [address], [place] [facility] 4 18:27:04 Neck pain 46878110 Active 2023 KAITLIN CANTUS,MS [address], [place], [address], [facility] 4 18:27:09 Myofascia l pain 040448669 Active 2023 ANTWONKAITLIN PAYTONS,MS [address], [place], [address], [facility] 4 09:38:17 Schwannom a 218211711 Active 2023 KAITLIN CANTUS,MS [address], [place], [address], [place] [facility] 4 09:40:30 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 Procedures Surgical History Date Name Laterality Status Provider Name and Address Organization Details Recorded Time 09/30/19 62127: Needle insertion(s) without injection(s), 1 or 2 muscle(s) completed GONZALO LEON DPT [address], [place], [address], [facility] 09/30/2023 16:55:55 09/30/19 88298: Therapeutic Exercise completed GONZALO LEON DPT [address], [place], [address], [facility] 09/30/2023 16:02:18 09/30/19 76756: Neuromuscular Re-Education completed GONZALO LEON DPT [address], [place], [address], [facility] 09/30/2023 16:00:57 09/30/19 24 10548: Manual Therapy completed GONZALO LEON DPT [address], [place], [address], [facility] 09/30/2023 16:56:16 09/23/19 Trigger point injection completed ANTWON JACKSON BDS,MS [address], [place], [address], [facility] 09/23/2023 10:48:38 09/16/19 24 46232: Self Care/Home Management Training cancelled GONZALO LEON DPT [address], [place], [address], [facility] 09/15/2023 16:28:02 09/16/19 24 57824: Therapeutic Exercise cancelled GONZALO LEON DPT [address], [place], [address], [facility] 09/15/2023 16:28:02 09/16/19 24 09834: Neuromuscular Re-Education cancelled GONZALO LEON DPT [address], [place], [address], [facility] 09/15/2023 16:28:02 09/16/19 24 32654: Manual Therapy cancelled GONZALO LEON DPT [address], [place], [address], [facility] 09/15/2023 16:28:40 09/09/19 24 58398: Self Care/Home Management Training completed GONZALO LEON DPT [address], [place], [address], [facility] 09/09/2023 17:09:25 09/09/19 24 73797: Therapeutic Exercise completed GONZALO LEON DPT [address], [place], [address], [facility] 09/09/2023 16:51:57 09/09/19 24 74341: Neuromuscular Re-Education completed GONZALO LEON DPT [address], [place], [address], [facility] 09/09/2023 16:51:59 09/09/19 24 77899: Manual Therapy completed GONZALO LEON DPT [address], [place], [address], [facility] 09/09/2023 17:09:12 09/02/19 24 Trigger point injection completed ANTWON JACKSON BDS,MS [address], [place], [address], [facility] 09/05/2023 13:07:17 09/02/19 24 89322: Therapeutic Exercise completed GONZALO LEON DPT [address], [place], [address], [facility] 09/02/2023 16:40:27 09/02/19 24 09976: Neuromuscular Re-Education completed GONZALO LEON DPT [address], [place], [address], [facility] 09/02/2023 16:40:27 09/02/19 24 93096: Manual Therapy completed GONZALO LEON DPT [address], [place], [address], [facility] 09/02/2023 16:41:10 08/26/19 24 07667: Self Care/Home Management Training cancelled CESILIA REYEST [address], [place], [address], [facility] 08/26/2023 11:12:04 08/26/19 24 66558: Therapeutic Exercise cancelled CESILIA REYEST [address], [place], [address], [facility] 08/26/2023 11:12:04 08/26/19 24 33980: Neuromuscular Re-Education cancelled CESILIA REYEST [address], [place], [address], [facility] 08/26/2023 11:12:04 08/26/19 24 03312: Manual Therapy cancelled CESILIA REYEST [address], [place], [address], [facility] 08/26/2023 11:12:04 08/26/19 24 14367: Therapeutic Activities cancelled CESILIA REYEST [address], [place], [address], [facility] 08/26/2023 11:12:04 08/19/19 24 44722: Therapeutic Exercise completed CESILIA REYEST [address], [place], [address], [facility] 08/19/2023 16:46:44 08/19/19 24 48170: Neuromuscular Re-Education completed GONZALO LEON DPT [address], [place], [address], [facility] 08/19/2023 16:47:50 08/19/19 29950: Manual Therapy completed GONZALO LEON DPT [address], [place], [address], [facility] 08/19/2023 16:47:52 08/12/19 60006 - PT Eval Moderate Complexity completed GONZALO LEON DPT [address], [place], [address], [facility] 08/12/2023 17:06:13 08/12/19 21505: Self Care/Home Management Training completed GONZALO LEON DPT [address], [place], [address], [facility] 08/12/2023 17:05:25 08/12/19 24 62753: Therapeutic Exercise completed GONZALO LEON DPT [address], [place], [address], [facility] 08/12/2023 17:06:04 08/12/19 73987: Neuromuscular Re-Education completed GONZALO LEON DPT [address], [place], [address], [facility] 08/12/2023 17:05:31 08/12/19 24 53993: Manual Therapy completed GONZALO LEON DPT [address], [place], [address], [facility] 08/12/2023 17:05:58 08/12/19 Trigger point injection completed ANTWON JACKSON BDS,MS [address], [place], [address], [facility] 08/14/2023 11:46:33 08/01/[address] TMJ completed Maryse Peng [facility] 08/01/2023 09:33:39 07/30/19 24 Trigger point injection completed ANTWON JACKSON BDS,MS [address] [facility] [address], [place], [address], [place] [facility] 08/03/2023 13:10:15 07/08/19 24 Trigger point injection completed ANTWON JACKSON BDS,MS [address] [facility] [address], [place], [address], [place] [facility] 07/09/2023 09:48:37 06/17/19 24 Trigger point injection completed ANTWON JACKSON BDS,MS [address] [facility] [address], [place], [address], [facility] 06/19/2023 12:15:19 Imaging Results None recorded. Procedure Notes None recorded. Medical Equipment None Reported. Allergies Allergen ID Allergen Name Allergen Category Reaction Reaction Severity Criticality Documentation Date Start Date Code Code System Note Provider Name and Address Organization Details Recorded Time 59114 Macrobid medicatio n Not available Not available Not available 06/03/2023 91024 1 RxNorm Tanya gibson [facility] 16:51:42 Medications Name Sig Start Date Stop [...] completed Not Available Not Available Not Available tizanidine 4 mg tablet Take 1 tablet every day by oral route at bedtime for 30 days, for jaw and neck pain. 2024 active Not Available Not Available Not Avai lable fluconazole 150 mg tablet TAKE 1 TABLET [...] Not Available Not Available No t Available phentermine 30 mg capsule TAKE 1 CAPSULE BY MOUTH EVERY DAY BEFORE A MEAL active Not Available Not Available No t [...] Not Available Not Avai lable Not Available [id number] 100 gram-sod sulf 7.5 gram-NaCl-K Cl-ascorbat e-C [...] Updated DateTime 4 165.1 cm 23.3 kg/m2 91605.9 3 g 73 /min 127 mm[Hg] 87 mm[Hg] Nicolegladis Trevizo [facility] 4 11:30:42 Date Recorded Body height Heart rate Systolic blood pressure Diastolic blood pressure Provider Name and Address Organization Details Last Updated DateTime 02/24/2024 165.1 cm 80 /min 142 mm[Hg] 102 mm[Hg] Steven Ferrell [facility] 02/24/2024 12:59:53 Date Recorded Body height Body mass index (BMI) Body weight Heart rate Systolic blood pressure Diastolic blood pressure Provider Name and Address Organization Details Last Updated DateTime 5 165.1 cm 23.3 kg/m2 81981.9 3 g 90 /min 118 mm[Hg] 70 mm[Hg] Maryse Peng [facility] 5 17:30:36 Date Recorded Body height Body mass index (BMI) Body weight Heart rate Systolic blood pressure Diastolic blood pressure Provider Name and Address Organization Details Last Updated DateTime 5 165.1 cm 23.3 kg/m2 05262.9 3 g 68 /min 140 mm[Hg] 100 mm[Hg] Maryse Peng [facility] 5 18:09:14 Social History Question Answer Notes LastModified by Organizat ion Details LastModified Time Tobacco Smoking Status [facility] 06/03/2023 16:52:05 What Is Your Level Of Caffeine Consumption? Moderate Information not available 06/03/2023 What Type Of Diet Are You Following? REGULAR [email or web address] Information not available 06/03/2023 Do You Reside In Or Have You Traveled To An Area Where Ebola Virus Transmission Is Active? No [email or web address] Information not available 06/03/2023 What Is The Highest Grade Or Level Of School You Have Completed Or The Highest Degree You Have Received? [id number] [email or web address] Information not available 06/03/2023 Marital Status Informatio n not available 06/03/2023 What Number Best Describes Your Pain On Average In The Past Week? (0=no Pain, 10=pain As Bad As You Can Imagine) 4 [email or web address] Information not available 06/03/2023 What Number Best Describes How, During The Past Week, Pain Has Interfered With Your Enjoyment Of Life? (0=does Not Interfere, 10= Completely Interferes) 3 [email or web address] Information not available 06/03/2023 What Number Best Describes How, During The Past Week, Pain Has Interfered With Your General Activity? (0=does Not Interfere, 10=completely Interferes) 2 [email or web address] Information not available 06/03/2023 How Many Children Do You Have? 3 [email or web address] Information not available 06/03/2023 What Is Your Relationship Status? [email or web address] Information not available 06/03/2023 How Many Years Have You Smoked Tobacco? 0 [email or web address] Information not available 06/03/2023 Sex: Unknown Functional Status Question Answer Note LastModified by Organizat ion Details LastModified Time Do you use any illicit or recreational drugs? No [email or web address] Information not available 06/03/2023 What is your level of alcohol consumption? None [email or web address] Information not available 06/03/2023 Are you currently employed? 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 Moderate [email or web address] Information not available 06/03/2023 Mental Status Question Answer Note LastModified by Organization D etails LastModified Time Do you feel stressed (tense, restless, nervous, or anxious, or unable to sleep at night)? [id number] [email or web address] Information not available 06/03/2023 Family History Relationship Description Onset Age of this Age Resolved Age Notes LastModified by Organization Details LastModified Time Mother Hypertensive disorder Not available 2023 16:51:47 Father Hypertensive disorder Not available 2023 16:51:47 Father Heart disease [email or web address] Not available 2023 16:51:47 Medical History Condition Response Anxiety Disorder Y Other Y Migraines Y Headaches Y Hypertension Y Gynecological HistoryNo gynecological history recorded. 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 Bilateral temporomandibular joint pain 1086068809 5198755 M26.623 Sleep related bruxism 27 9655211 G47.63 Chronic te nsion-type headache 415492119 G44.229 Migraine without aura 56 300858 G43.009 Neck pain 90466373 M54.2 Schwannoma 120779705 D36 .10 RIGHT EAR - previously diagnosed and monitored with yearly imagingSta ble [id number] ANTWON JACKSON BDS,MS [place] [address] [place] [id number] 06/17/2023 16:42:36 06/17/2023 17:13:50 Articular disc disorder of temporomandibular joint 58257757 M26.632 Left TMJ disc displaceme nt with reductionR ule out bilateral TMJ DJDRight ear schwannoma - previously diagnosed Myofascial pain 36589696 9 M79.11 M79.12 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 Neck pain 14645985 M54.2 Migraine without aura 56 749563 G43.009 Sleep related bruxism 27 1356424 G47.63 Chronic te nsion-type headache 331556293 G44.229 Schwannoma 794768294 D36 .10 RIGHT EAR - previously diagnosed and monitored with yearly imagingSta ble Bilateral temporomandibular joint pain 2679801512 6875151 M26.623 [id number] ANTWON JACKSON BDS,MS [address] [place] [id number] 07/08/2023 16:44:50 07/08/2023 17:53:57 Articular disc disorder of temporomandibular joint 93759737 M26.632 Left TMJ disc displaceme nt with reductionR ule out bilateral TMJ DJDRight ear schwannoma - previously diagnosed Bilateral temporomandibular joint pain 9528469086 3344937 M26.623 Myofascial pain 94468746 9 M79.11 M79.12 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 Chronic te nsion-type headache 937494400 G44.229 Sleep related bruxism 27 0067811 G47.63 [id number] KAITLIN CANTUS,MS Alondra e [address] [place] [id number] 07/30/2023 16:47:02 07/30/2023 17:44:30 Articular disc disorder of temporomandibular joint 52882781 M26.632 Left TMJ disc displaceme nt with reductionR ule out bilateral TMJ DJDRight ear schwannoma - previously diagnosed Bilateral temporomandibular joint pain 9309505586 6989637 M26.623 Myofascial pain 60330096 9 M79.11 M79.12 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 [address] [facility] [address] [place] [address] 08/01/2023 09:24:11 08/01/2023 09:28:48 Articular disc disorder of temporomandibular joint 22183874 M26.632 Left TMJ disc displaceme nt with reductionR ule out bilateral TMJ DJDRight ear schwannoma - previously diagnosed [id number] GONZALO LEON, DPT [place] [address] [place] [id number] 08/12/2023 15:54:44 08/12/2023 19:03:46 Bilateral temporomandibular joint pain 4869086734 0223604 M26.623 Chronic te nsion-type headache 172993534 G44.229 Myofascial pain 34071249 9 M79.11 M79.12 Neck pain 20184477 M54.2 Migraine without aura 56 298408 G43.009 [id number] KAITLIN CANTUS,MS [place] [place] [id number] 08/12/2023 15:26:03 08/13/2023 12:54:59 Bilateral temporomandibular joint pain 8974920742 9042826 M26.623 Schwannoma 089183250 D36 .10 RIGHT EAR - previously diagnosed and monitored with yearly imagingSta ble Chronic te nsion-type headache 347433448 G44.229 Sleep related bruxism 27 4905519 G47.63 Myofascial pain 74110511 9 M79.11 M79.12 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 [id number] KAITLIN CANTUS,MS [address] [place] [id number] 08/14/2023 14:00:41 08/14/2023 14:31:27 [id number] GONZALO LEON, DPT [place] [place] [id number] 08/19/2023 15:56:43 08/19/2023 18:44:38 Bilateral temporomandibular joint pain [id number] 4152679 M26.623 Chronic te nsion-type headache 858697265 G44.229 Myofascial pain 67977873 9 M79.11 M79.12 Neck pain 73070619 M54.2 Migraine without aura 56 613243 G43.009 [id number] ANTWON JACKSON BDS,MS [place]ond[place] e [address] [place] [address] 09/02/2023 15:01:54 09/02/2023 15:49:33 Arthritis of left temporomandibular joint 0933163117 2996704 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 Myofascial pain 92448042 9 M79.11 M79.12 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 musclesPre vious treatment - NSAIDs, tylenol, muscle relaxants, intraoral appliance, physical therapy, trigger point injections . Articular disc disorder of temporomandibular joint 54857657 M26.632 Left TMJ disc displaceme nt with reductionR ule out bilateral TMJ DJDRight ear schwannoma - previously diagnosed Bilateral temporomandibular joint pain 9229770531 8911528 M26.623 Chronic te nsion-type headache 682926250 G44.229 Schwannoma 672719396 D36 .10 RIGHT EAR - previously diagnosed and monitored with yearly imagingSta ble Sleep related bruxism 27 6401470 G47.63 Migraine without aura 56 951979 G43.009 Neck pain 12365603 M54.2 [id number] SHABANA REYES e [address] [place] [address] 09/02/2023 14:57:47 09/02/2023 16:39:07 Bilateral temporomandibular joint pain 8557967729 5048538 M26.623 Chronic te nsion-type headache 617290983 G44.229 Myofascial pain 15519343 9 M79.11 M79.12 Neck pain 72265506 M54.2 Migraine without aura 56 667587 G43.009 [id number] SHABANA REYES [address] [place] [address] 09/09/2023 15:44:51 09/09/2023 16:57:38 Bilateral temporomandibular joint pain 9886135293 5281040 M26.623 Chronic te nsion-type headache 862579711 G44.229 Myofascial pain 22473982 9 M79.11 M79.12 Neck pain 42154071 M54.2 Migraine without aura 56 041679 G43.009 [id number] ANTWON JACKSON BDS,MS Alondra [place]ro[place] [address] [place] [address] 09/23/2023 08:58:29 09/23/2023 10:49:27 Arthritis of left temporomandibular joint 6148218936 0315248 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 Myofascial pain 03436300 9 M79.11 M79.12 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 musclesPre vious treatment - NSAIDs, tylenol, muscle relaxants, intraoral appliance, physical therapy, trigger point injections . Articular disc disorder of temporomandibular joint 42519407 M26.632 Left TMJ disc displaceme nt with reductionR ule out bilateral TMJ DJDRight ear schwannoma - previously diagnosed Bilateral temporomandibular joint pain 4584960483 2363577 M26.623 Chronic te nsion-type headache 235045003 G44.229 Schwannoma 991111822 D36 .10 RIGHT EAR - previously diagnosed and monitored with yearly imagingSta ble Sleep related bruxism 27 8521064 G47.63 Migraine without aura 56 075253 G43.009 Neck pain 86341683 M54.2 [id number] GONZALO LEON, DPT Alondra schroeder [address] [place] [address] 09/30/2023 15:05:03 09/30/2023 17:19:12 Bilateral temporomandibular joint pain 5810302063 7532436 M26.623 Chronic te nsion-type headache 887687385 G44.229 Myofascial pain 91791973 9 M79.11 M79.12 Neck pain 06525615 M54.2 Migraine without aura 56 011022 G43.009 [id number] ATNWON JACKSON BDS,MS [place]ra e [address] [place] [address] 10/08/2023 14:26:05 10/08/2023 15:26:51 Articular disc disorder of temporomandibular joint 24593116 M26.632 Left TMJ disc displaceme nt with reductionR ule out bilateral TMJ DJDRight ear schwannoma - previously diagnosed Myofascial pain 41493223 9 M79.11 M79.12 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 musclesPre vious treatment - NSAIDs, tylenol, muscle relaxants, intraoral appliance, physical therapy, trigger point injections . Bilateral temporomandibular joint pain 4191942308 8967195 M26.623 Chronic te nsion-type headache 734703415 G44.229 Migraine without aura 56 743464 G43.009 Neck pain 90216675 M54.2 Schwannoma 258856451 D36 .10 RIGHT EAR - previously diagnosed and monitored with yearly imagingSta ble Sleep related bruxism 27 0775526 G47.63 [id number] GONZALO LEON, DPT Alondra schroeder [address] [place] [address] 10/14/2023 14:48:51 10/14/2023 15:59:33 Bilateral temporomandibular joint pain 1019479840 0088684 M26.623 Chronic te nsion-type headache 279368611 G44.229 Myofascial pain 78481745 9 M79.11 M79.12 Neck pain 43106203 M54.2 Migraine without aura 56 648081 G43.009 [id number] ANTWON JACKSON BDS,MS [place] [address] [place] [address] 10/14/2023 14:49:25 10/14/2023 17:28:47 Articular disc disorder of temporomandibular joint 97675882 M26.632 Left TMJ disc displaceme nt with reductionR ule out bilateral TMJ DJDRight ear schwannoma - previously diagnosed Myofascial pain 08503635 9 M79.11 M79.12 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 musclesPre vious treatment - NSAIDs, tylenol, muscle relaxants, intraoral appliance, physical therapy, trigger point injections . Bilateral temporomandibular joint pain 2536636390 4503441 M26.623 Chronic te nsion-type headache 163159541 G44.229 Migraine without aura 56 429256 G43.009 Neck pain 38208047 M54.2 Schwannoma 240863946 D36 .10 RIGHT EAR - previously diagnosed and monitored with yearly imagingSta ble Sleep related bruxism 27 8205759 G47.63 [id number] SHABANA REYES e [address] [place] [address] 10/28/2023 17:17:49 10/28/2023 18:03:13 Bilateral temporomandibular joint pain 5573566499 2392435 M26.623 Chronic te nsion-type headache 156104327 G44.229 Myofascial pain 95052551 9 M79.11 M79.12 Neck pain 64006077 M54.2 Migraine without aura 56 736010 G43.009 [id number] SHABANA REYES e [address] [place], [place] [address] 11/04/2023 18:03:52 11/04/2023 18:45:38 Bilateral temporomandibular joint pain 5005948415 7891954 M26.623 Chronic te nsion-type headache 577893299 G44.229 Myofascial pain 24087811 9 M79.11 M79.12 Neck pain 33923098 M54.2 Migraine without aura 56 274583 G43.009 [id number] ANTWON JACKSON BDS,MS Alondra e [address] [place] [address] 11/05/2023 17:28:05 11/05/2023 18:07:50 Articular disc disorder of temporomandibular joint 55595600 M26.632 Left TMJ disc displaceme nt with reductionR ule out bilateral TMJ DJDRight ear schwannoma - previously diagnosed Myofascial pain 48451656 9 M79.11 M79.12 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 musclesPre vious treatment - NSAIDs, tylenol, muscle relaxants, intraoral appliance, physical therapy, trigger point injections . Bilateral temporomandibular joint pain 0208314383 7947947 M26.623 Chronic te nsion-type headache 742995306 G44.229 Migraine without aura 56 442287 G43.009 Neck pain 40742816 M54.2 Schwannoma 834504017 D36 .10 RIGHT EAR - previously diagnosed and monitored with yearly imagingSta ble Sleep related bruxism 27 4770872 G47.63 [id number] GONZALO LEON, DPT [place] e [address] [place] [address] 11/18/2023 17:01:12 11/19/2023 08:31:00 Bilateral temporomandibular joint pain 7003300381 9120416 M26.623 Chronic te nsion-type headache 461583386 G44.229 Myofascial pain 95923643 9 M79.11 M79.12 Neck pain 11783045 M54.2 Migraine without aura 56 457141 G43.009 [id number] ANTWON JACKSON, BDS,MS Alondra e [address] [place] [address] 11/18/2023 17:00:53 11/18/2023 17:47:23 Articular disc disorder of temporomandibular joint 26123442 M26.632 Left TMJ disc displaceme nt with reductionR ule out bilateral TMJ DJDRight ear schwannoma - previously diagnosed Myofascial pain 75529904 9 M79.11 M79.12 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 musclesPre vious treatment - NSAIDs, tylenol, muscle relaxants, intraoral appliance, physical therapy, trigger point injections . 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 Myofascial pain 87352424 9 M79.11 M79.12 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 musclesPre vious treatment - NSAIDs, tylenol, muscle relaxants, intraoral appliance, physical therapy, trigger point injections . Bilateral temporomandibular joint pain 9523224331 3211350 M26.623 Chronic te nsion-type headache 055773297 G44.229 Migraine without aura 56 454670 G43.009 Neck pain 64956989 M54.2 Schwannoma 189913885 D36 .10 RIGHT EAR - previously diagnosed and monitored with yearly imagingSta ble Sleep related bruxism 27 4758358 G47.63 [id number] GONZALO NAYANIsaac, DPT [place]ond[place] e [address] [place] [address] 12/09/2023 16:38:00 12/09/2023 18:10:48 Bilateral temporomandibular joint pain 4025658793 4235430 M26.623 Chronic te nsion-type headache 414244790 G44.229 Myofascial pain 97755901 9 M79.11 M79.12 Neck pain 96277536 M54.2 Migraine without aura 56 242685 G43.009 Articular disc disorder of temporomandibular joint 54298143 M26.632 [id number] ANTWONSOLEDAD JACKSON, BDS,MS [place] [address] [place] [address] 01/13/2024 17:22:28 01/13/2024 18:15:56 Arthritis of left temporomandibular joint 1283739840 9417849 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 Myofascial pain 63609943 9 M79.11 M79.12 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 musclesPre vious treatment - NSAIDs, tylenol, muscle relaxants, intraoral appliance, physical therapy, trigger point injections . Bilateral temporomandibular joint pain 5018612505 9423179 M26.623 Chronic te nsion-type headache 480266703 G44.229 Migraine without aura 56 336886 G43.009 Neck pain 08233565 M54.2 Schwannoma 178679694 D36 .10 RIGHT EAR - previously diagnosed and monitored with yearly imagingSta ble Sleep related bruxism 27 7802768 G47.63 [id number] ANTWON JACKSON BDS,MS Alondra schroeder [address] [place] [address] 02/10/2024 10:53:17 02/10/2024 12:10:54 Articular disc disorder of temporomandibular joint 77112724 M26.632 Left TMJ disc displaceme nt with reductionR ule out bilateral TMJ DJDRight ear schwannoma - previously diagnosed Myofascial pain 04276162 9 M79.11 M79.12 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 musclesPre vious treatment - NSAIDs, tylenol, muscle relaxants, intraoral appliance, physical therapy, trigger point injections . 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 27 7229813 G47.63 Neck pain 34886059 M54.2 [id number] GONZALO LEON, DPT [place]ondra e [address] [place] [address] 02/10/2024 12:08:20 02/10/2024 13:14:32 Bilateral temporomandibular joint pain 3459870427 3186086 M26.623 Chronic te nsion-type headache 832461174 G44.229 Myofascial pain 87694197 9 M79.11 M79.12 Neck pain 98876343 M54.2 Migraine without aura 56 773913 G43.009 Articular disc disorder of temporomandibular joint 16320711 M26.632 [id number] ANTWONKAITLIN PAYTONS,MS [place] [address] [place] [address] 02/24/2024 12:56:35 02/24/2024 13:23:16 Articular disc disorder of temporomandibular joint 20651843 M26.632 Left TMJ disc displaceme nt with reductionR ule out bilateral TMJ DJDRight ear schwannoma - previously diagnosed Myofascial pain 07173391 9 M79.11 M79.12 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 musclesPre vious treatment - NSAIDs, tylenol, muscle relaxants, intraoral appliance, physical therapy, trigger point injections . 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 Sleep related bruxism 27 0608835 G47.63 Neck pain 89645917 M54.2 [id number] ANTWONKAITLIN PAYTONS,MS [place] [address] [place] [address] 05/05/2024 17:21:24 05/05/2024 17:45:32 Articular disc disorder of temporomandibular joint 39701740 M26.632 Left TMJ disc displaceme nt with reductionR ule out bilateral TMJ DJDRight ear schwannoma - previously diagnosed Myofascial pain 49364164 9 M79.11 M79.12 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 musclesPre vious treatment - NSAIDs, tylenol, muscle relaxants, intraoral appliance, physical therapy, trigger point injections . 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 Sleep related bruxism 27 8505847 G47.63 Neck pain 23388619 M54.2 [id number] GONZALO LEON, DPT [place] e [address] [place] [address] 06/29/2024 16:53:58 06/29/2024 18:21:27 Bilateral temporomandibular joint pain 1478328213 2599291 M26.623 Chronic te nsion-type headache 640217295 G44.229 Myofascial pain 45471780 9 M79.11 M79.12 Neck pain 78352938 M54.2 Migraine without aura 56 978039 G43.009 Articular disc disorder of temporomandibular joint 74233708 M26.632 [id number] ANTWON JACKSON BDS,MS [place]ond[place] e [address] [place] [address] 06/29/2024 16:54:35 06/29/2024 19:38:21 Arthritis of left temporomandibular joint 8800430898 6859473 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 Articular disc disorder of temporomandibular joint 77170991 M26.632 Left TMJ disc displaceme nt with reductionR ule out bilateral TMJ DJDRight ear schwannoma - previously diagnosed Myofascial pain 52851204 9 M79.11 M79.12 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 muscles - flared. Chronic te nsion-type headache 915067286 G44.229 Neck pain 60763372 M54.2 Schwannoma 504669723 D36 .10 RIGHT EAR - previously diagnosed and monitored with yearly imagingSta ble Sleep related bruxism 27 1627334 G47.63 Health Concerns Section Related Observation LastModified by Organization Detai ls LastModified Time None Recorded Concern Status LastModified by Organization Details LastModified Time None Recorded Advance Directives Directive None Recorded Payers Encounter Date Sequence Insurance Name Policy Number Policy Silva Covered Member ID Silva Member ID Guarantor Name 02/10/2024 1 [employer] [id number] Pascale L Abdi [id number] Pascale [place] 02/24/2024 1 [employer] [id number] Pascale L Abdi [id number] Pascale [place] 05/05/2024 1 [employer] [id number] Pascale L Abdi [id number] Pascale [place] 06/29/2024 1 [employer] [id number] Pascale L Abdi [id number] Pascale [place] 06/29/2024 1 [employer] [id number] Pascalekecia Cabelloand [id number] Pascale [place] Notes Date Note Type Note Provider Name and Address Organization Details Recorded Time 02/10/2024 text/html general HPI for jaw, face, [...] side molars);headaches;ti nnitus(right ear) Prior Tests:panorex 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 She reports regular jaw exercises. 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 R tooth crack during prolactinoma surgery. [employer] placement to correct recently. Using massage at [...] been managed well with HEP provided at [facility]. Only 1 MARION over the past few weeks. Received TPI injection today with continued reduction in symptoms. Scans taken for potential new oral splint. Potential plan for Botox in a few week. Neck stretches have been doing well in managing symptoms. 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 ANTWON JACKSON, BDS,MS [address] [facility] [address], [place], [address], [facility] 05/07/2024 07:02:23 06/29/2024 text/html Pt reports recen t increase in B masseter soreness as Botox seems to be wearing off. Notes increased symptoms when not wearing oral appliance. 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 Continued mild brain fog lingering. 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 Seeing chiro weekly. FU with TPI today. JFLS Initial = . Reeval = . FU = . Reeval = . Eval: Patient presents today for PT evaluation regarding: B jaw pain and noise (L>R), MARION, tinnitus, cervical painShe reports a flare up of symptoms last week for a few days that has otherwise been managed well with HEP provided at [facility]. Only 1 MARION over the past few weeks. Received TPI injection today with continued reduction in symptoms. Scans taken for potential new oral splint. Potential plan for Botox in a few week. Neck stretches have been doing well in managing symptoms. 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 They report jaw symptoms which are {{improved stable ch ronic chronic and progressive worsened * unchanged flared r esolved}} since the previous visit. Symptoms and pertinent information along with prior data was reviewed, updated and documented in the patient history of present illness. Patient rates the pain intensity as {{0 1 2 3 4 5 6 7* 8 9 10}} on a scale of 0 to 10. Patient is {{engaged in* not engaged in partially engaged in completed discont inued}} active treatment at this time. Pascale is present for 8 weeks follow up after Botox injections. She is presenting in a flare - symptoms flared in the last few days and she attributes this to high stress. She reports her symptoms are well managed when Botox is in effect. The effect has been less noticeable over the last week. She reports significant stress from work and managing a new curriculum. She has been working on her coping strategies, however recognises stress and its impact on sleep and muscle tension. She has noticed the neck and shoulder tightness is returning over the last week. Her jaw pain is improved. she has an upcoming appointment with Dr. Coe. She is doing self care at home. She is working on jaw exercises regularly. She would like to try trigger point injections at this time. Pascale has reconnected with Gonzalo for PT at this time. She has been working with client care specialist as well. She finds that helping the flare. Intraoral appliance - fits well and uses it regularly.PT exercises -regular.Pascale is recovering well from the neurosurgery. She has started back at work. No recent changes in health. ANTWON JACKSON BDS,MS [address] [facility] [address], [place], [address], [place] [facility] 07/02/2024 07:15:52 OBGyn Episode No OBEpisode recorded.
--- OUTSIDE RECORDS SUMMARY | 2024-07-11 17:45 | XMS_ITS | Continuity of Care Document ---
Author Organization [place] - [facility], [place] Address [address] [place] [address] Care Team Providers Care Rubber And Pounder Name Role Phone POWER GEORGE DENTAL Referring Provider [phone] GAEL WYMAN Primary Care Provider [phone] Assessment Encounter Date Assessment Date Assessment LastModified by Organization Details LastModified Time 06/29/2024 06/29/2024 Reevaluation performed today to update and measure objective findings, modify goals as noted and modify POC frequency and duration. POC was modified today. Discussion of progress and new plan with patient with patient agreement. Patient is progressing with improvement. Frequency: will be 1x/2 weeks for 12 weeks, tapering as able for a total of 8 visits over 3 months. 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):*Patient [...] By Organization Details Last Modified Time 06/29/2024 [id number] Total treatment time minutes today: 45 Pictorious Access Code: [email or web address]; At-Home Strengthening Code: [email or web address] Next Visit Plan: provide additional resources to [...] Recorded Time Bilateral temporoma ndibular joint pain 382907743405 37386 Active 2023 ANTWON JACKSON BDS,MS [address], [place], [address], [facility] 18:26:40 Sleep related bruxism 206686396 Active 2023 ANTWON JACKSON BDS,MS [address], [place], [address], [facility] 4 18:26:47 Chronic tension-t ype headache 763905200 Active 2023 ANTWON JACKSON BDS,MS [address], [place], [address], [facility] 18:26:56 Migraine without aura 82961707 Active 2023 ANTWON CHANEYKAITLIN CARSONS,MS [address], [place], [address], [facility] 4 18:27:04 Neck pain 61510771 Active 2023 ANTWON KAITLIN JACKSONS,MS [address], [place], [address], [facility] 4 18:27:09 Myofascia l pain 572391422 Active 2023 ANTWON CHANEYUNKAITLINS,MS [address], [place], [address], [facility] 4 09:38:17 Schwannom a 571708795 Active 2023 ANTWONKAITLIN STOKESS,MS [address], [place], [address], [facility] 4 09:40:30 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 Procedures Surgical History Date Name Laterality Status Provider Name and Address Organization Details Recorded Time 09/30/1960: Needle insertion(s) without injection(s), 1 or 2 muscle(s) completed GONZALO LEON DPT [address], [place], [address], [facility] 09/30/2023 16:55:55 09/30/19 24 65271: Therapeutic Exercise completed GONZALO LEON DPT [address], [place], [address], [facility] 09/30/2023 16:02:18 09/30/19 24 08206: Neuromuscular Re-Education completed GONZALO LEON DPT [address], [place], [address], [facility] 09/30/2023 16:00:57 09/30/19 24 83035: Manual Therapy completed GONZALO LEON DPT [address], [place], [address], [facility] 09/30/2023 16:56:16 09/23/19 24 Trigger point injection completed ANTWON JACKSON BDS,MS [address], [place], [address], [facility] 09/23/2023 10:48:38 09/16/19 24 16582: Self Care/Home Management Training cancelled GONZALO LEON DPT [address], [place], [address], [facility] 09/15/2023 16:28:02 09/16/19 24 58025: Therapeutic Exercise cancelled GONZALO LEON DPT [address], [place], [address], [facility] 09/15/2023 16:28:02 09/16/19 24 89443: Neuromuscular Re-Education cancelled GONZALO LEON DPT [address], [place], [address], [facility] 09/15/2023 16:28:02 09/16/19 24 98149: Manual Therapy cancelled GONZALO LEON DPT [address], [place], [address], [facility] 09/15/2023 16:28:40 09/09/19 24 72051: Self Care/Home Management Training completed GONZALO LEON DPT [address], [place], [address], [facility] 09/09/2023 17:09:25 09/09/19 24 65347: Therapeutic Exercise completed GONZALO LEON DPT [address], [place], [address], [facility] 09/09/2023 16:51:57 09/09/19 24 56130: Neuromuscular Re-Education completed GONZALO LEON DPT [address], [place], [address], [facility] 09/09/2023 16:51:59 09/09/19 24 58645: Manual Therapy completed GONZALO LEON DPT [address], [place], [address], [facility] 09/09/2023 17:09:12 09/02/19 24 Trigger point injection completed ANTWON JACKSON BDS,MS [address], [place], [address], [facility] 09/05/2023 13:07:17 09/02/19 24 64132: Therapeutic Exercise completed GONZALO LEON DPT [address], [place], [address], [facility] 09/02/2023 16:40:27 09/02/19 24 63254: Neuromuscular Re-Education completed GONZALO LEON DPT [address], [place], [address], [facility] 09/02/2023 16:40:27 09/02/19 24 90477: Manual Therapy completed GONZALO LEON DPT [address], [place], [address], [facility] 09/02/2023 16:41:10 08/26/19 24 93855: Self Care/Home Management Training cancelled GONZALO LEON DPT [address], [place], [address], [facility] 08/26/2023 11:12:04 08/26/19 24 29438: Therapeutic Exercise cancelled GONZALO LEON DPT [address], [place], [address], [facility] 08/26/2023 11:12:04 08/26/19 24 52297: Neuromuscular Re-Education cancelled GONZALO LEON DPT [address], [place], [address], [facility] 08/26/2023 11:12:04 08/26/19 24 05059: Manual Therapy cancelled GONZALO LEON DPT [address], [place], [address], [facility] 08/26/2023 11:12:04 08/26/19 75609: Therapeutic Activities cancelled GONZALO LEON DPT [address], [place], [address], [facility] 08/26/2023 11:12:04 08/19/19 24 19693: Therapeutic Exercise completed GONZALO LEON DPT [address], [place], [address], [facility] 08/19/2023 16:46:44 08/19/19 24 18883: Neuromuscular Re-Education completed GONZALO LEON DPT [address], [place], [address], [facility] 08/19/2023 16:47:50 08/19/19 23471: Manual Therapy completed GONZALO LEON DPT [address], [place], [address], [facility] 08/19/2023 16:47:52 08/12/19 24 31825 - PT Eval Moderate Complexity completed GONZALO LEON DPT [address], [place], [address], [facility] 08/12/2023 17:06:13 08/12/19 24 16538: Self Care/Home Management Training completed GONZALO LEON DPT [address], [place], [address], [facility] 08/12/2023 17:05:25 08/12/19 24 57284: Therapeutic Exercise completed GONZALO LEON DPT [address], [place], [address], [facility] 08/12/2023 17:06:04 08/12/19 24 35296: Neuromuscular Re-Education completed GONZALO LEON DPT [address], [place], [address], [facility] 08/12/2023 17:05:31 08/12/19 24 08745: Manual Therapy completed GONZALO LEON DPT [address], [place], [address], [facility] 08/12/2023 17:05:58 08/12/19 24 Trigger point injection completed ANTWON JACKSON BDS,MS [address], [place], [address], [facility] 08/14/2023 11:46:33 08/01/[address] TMJ completed Maryse Peng [facility] 08/01/2023 09:33:39 07/30/19 24 Trigger point injection completed ANTWON JACKSON BDS,MS [address], [place], [address], [facility] 08/03/2023 13:10:15 07/08/19 24 Trigger point injection completed ANTWON JACKSON BDS,MS [address], [place], [address], [place] [facility] 07/09/2023 09:48:37 06/17/19 24 Trigger point injection completed ANTWON JACKSON BDS,MS [address], [place], [address], [place] [facility] 06/19/2023 12:15:19 Imaging Results None recorded. Procedure Notes None recorded. Medical Equipment None Reported. Allergies Allergen ID Allergen Name Allergen Category Reaction Reaction Severity Criticality Documentation Date Start Date Code Code System Note Provider Name and Address Organization Details Recorded Time 90486 Macrobid medicatio n Not available Not available Not available 06/03/2023 24073 1 RxNorm Tanya Wiggins [facility] 16:51:42 Medications [...] Not Available Not Avai lable Not Available orb0564 100 gram-sod sulf 7.5 gram-NaCl-K Cl-ascorbat e-C [...] Updated DateTime 5 165.1 cm 23.3 kg/m2 95934.9 3 g 68 /min 140 mm[Hg] 100 mm[Hg] Maryse Peng [place] [facility] 5 18:09:14 Social History Question Answer Notes LastModified by Organizat ion Details LastModified Time Tobacco Smoking Status Never Smoker Tanya gibson [facility] 06/03/2023 16:52:05 What Is Your Level Of Caffeine Consumption? Moderate [email or web address] Information not available 06/03/2023 What Type Of Diet Are You Following? REGULAR [email or web address] Information not available 06/03/2023 Do You Reside In Or Have You Traveled To An Area Where Ebola Virus Transmission Is Active? No [email or web address] Information not available 06/03/2023 What Is The Highest Grade Or Level Of School You Have Completed Or The Highest Degree You Have Received? LT32284-4 [email or web address] Information not available 06/03/2023 Marital Status [email or web address] Informatio n not available 06/03/2023 What Number Best Describes Your Pain On Average In The Past Week? (0=no Pain, 10=pain As Bad As You Can Imagine) 4 Information not available 06/03/2023 What Number Best Describes How, During The Past Week, Pain Has Interfered With Your Enjoyment Of Life? (0=does Not Interfere, 10= Completely Interferes) 3 [email or web address] Information not available 06/03/2023 What Number Best Describes How, During The Past Week, Pain Has Interfered With Your General Activity? (0=does Not Interfere, 10=completely Interferes) 2 [email or web address] Information not available 06/03/2023 How Many Children Do You Have? 3 [email or web address] Information not available 06/03/2023 What Is Your Relationship Status? [email or web address] Information not available 06/03/2023 How Many Years Have You Smoked Tobacco? 0 [email or web address] Information not available 06/03/2023 Sex: Unknown Functional Status Question Answer Note LastModified by Organizat ion Details LastModified Time Do you use any illicit or recreational drugs? No [email or web address] Information not available 06/03/2023 What is your level of alcohol consumption? None [email or web address] Information not available 06/03/2023 Are you currently employed? 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 Moderate Information not available 06/03/2023 Mental Status Question Answer Note LastModified by Organization D etails LastModified Time Do you feel stressed (tense, restless, nervous, or anxious, or unable to sleep at night)? [id number] [email or web address] Information not available 06/03/2023 Family History Relationship Description Onset Age of this Age Resolved Age Notes LastModified by Organization Details LastModified Time Mother Hypertensive disorder [email or web address] Not available 2023 16:51:47 Father Hypertensive disorder [email or web address] Not available 2023 16:51:47 Father Heart disease [email or web address] Not available 2023 16:51:47 Medical History Condition Response Other Y Migraines Y Anxiety Disorder Y Headaches Y Hypertension Y Gynecological HistoryNo gynecological history recorded. Obstetrics History GPAL:G 0 P 0 0 0 0 Past Encounters Encounter ID Performer Location Encounter Start Date Encounter Closed Date Diagnosis/Indication Diagnosis SNOMED-CT Code Diagnosis ICD10 Code Diagnosis Note [id number] GONZALO LEON DPT [place] [address] [place] [address] 06/29/2024 16:53:58 06/29/2024 18:21:27 Bilateral temporomandibular joint pain 0745361435 0987715 M26.623 Chronic te nsion-type headache 652475761 G44.229 Myofascial pain 22769987 9 M79.11 M79.12 Neck pain 45944378 M54.2 Migraine without aura 56 203863 G43.009 Articular disc disorder of temporomandibular joint 84291021 M26.632 [id number] ANTWON JACKSON, KARISHMA,MS [place] [address] [place] [address] 06/29/2024 16:54:35 06/29/2024 19:38:21 Arthritis of left temporomandibular joint 5454064954 9555305 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 Chronic te nsion-type headache 580071637 G44.229 Neck pain 57747336 M54.2 Schwannoma 149540161 D36 .10 RIGHT EAR - previously diagnosed and monitored with yearly imagingSta ble Sleep related bruxism 27 4810763 G47.63 Health Concerns Section Related Observation LastModified by Organization Detai ls LastModified Time None Recorded Concern Status LastModified by Organization Details LastModified Time None Recorded Payers Encounter Date Sequence Insurance Name Policy Number Policy Silva Covered Member ID Silva Member ID Guarantor Name 06/29/2024 1 [facility] [id number] Pascale Abdi [id number] Pascale Abdi Notes Date Note Type Note Provider Name and Address Organization Details Recorded Time 06/29/2024 text/html Pt reports recen t increase [...] been managed well with HEP provided at [facility]. Only 1 MARION over the past few weeks. Received TPI injection today with continued reduction in symptoms. Scans taken for potential new oral splint. Potential plan for Botox in a few week. Neck stretches have been doing well in managing symptoms. GONZALO LEON, DPT [address], [place], [address], [place] [facility] 06/30/2024 [...] molars);headaches;ti nnitus(right ear) Prior Tests:panorex Prior Treatment:night custodian/oral appliance/splint Prior opiniondentist Patient presents today for [...] at this time. Pascale has reconnected with [facility] for PT at this time. She has been working with care professionals as well. She finds that helping the flare. Intraoral appliance - fits well and uses it regularly.PT exercises -regular.Pascale is recovering well from the neurosurgery. She has started back at work. No recent changes in health. ANTWON JACKSON, KAITLINS,MS [address], [place], [address], [facility] 07/02/2024 07:15:52 OBGyn Episode No OBEpisode recorded.
--- OUTSIDE RECORDS SUMMARY | 2024-07-11 17:45 | XMS_ITS | Continuity of Care Document ---
Author Organization [facility], [place] Address [address] [place] [address] Care Team Providers Care Allied Health Instructor Name Role Phone [facility] Referring Provider GAEL WYMAN Primary Care Provider Assessment Encounter Date Assessment Date Assessment LastModified by Organization Details LastModified Time 06/29/2024 06/29/2024 Today I reviewed the diagnosis, [...] return for follow-up care in 2-4 weeks. [email or web address] Not available 07/02/2024 07:15:20 Plan of Treatment Reminders Order Date Submit [...] tizanidin e 4 mg tablet 2024 025 [facility]/Pharmacy #[id number], [id number] [place], [address], 07/02/2024 07:15:50 Patient TargetsNo targets recorded. Patient InstructionsNo instructions recorded. Reason for Referral None Reported. Problems Name Problem SNOMED Code Status Onset Date Resolution Date Notes Provider Name and Address Organization Details Recorded Time Bilateral temporoma ndibular joint pain 120678095028 17880 Active 2023 ANTWON JACKSON BDS,MS [address] [facility] [facility] [address], [place], [address] , [facility] 18:26:40 Sleep related bruxism 846288626 Active 2023 ANTWON JACKSON BDS,MS [address], [place], [address], [place] [facility] 4 18:26:47 Chronic tension-t ype headache 196415884 Active 2023 KAITLIN CANTUS,MS [address], [place], [address], [facility] 4 18:26:56 Migraine without aura 24346760 Active 2023 ANTWON JACKSON BDS,MS [address], [place], [address], [facility] 4 18:27:04 Neck pain 53767095 Active 2023 ANTWON JACKSON BDS,MS [address], [place], [address], [facility] 4 18:27:09 Myofascia l pain 129584657 Active 2023 ANTWON JACKSON BDS,MS [address], [place], [address], [facility] 4 09:38:17 Schwannom a 227257114 Active 2023 ANTWON JACKSON BDS,MS [address], [place], [address], [facility] 4 09:40:30 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 Procedures Surgical History Date Name Laterality Status Provider Name and Address Organization Details Recorded Time 09/30/1960: Needle insertion(s) without injection(s), 1 or 2 muscle(s) completed GONZALO LEON DPT [address], [place], [address], [facility] 09/30/2023 16:55:55 09/30/19 32049: Therapeutic Exercise completed GONZALO LEON DPT [address], [place], [address], [facility] 09/30/2023 16:02:18 09/30/19 22644: Neuromuscular Re-Education completed GONZALO LEON DPT [address], [place], [address], [facility] 09/30/2023 16:00:57 09/30/19 48109: Manual Therapy completed GONZALO LEON DPT [address], [place], [address], [place] [facility] 09/30/2023 16:56:16 09/23/19 Trigger point injection completed ANTWON JACKSON BDS,MS [address], [place], [address], [facility] 09/23/2023 10:48:38 09/16/19 24 06178: Self Care/Home Management Training cancelled GONZALO LEON DPT [address], [place], [address], [facility] 09/15/2023 16:28:02 09/16/19 24 03733: Therapeutic Exercise cancelled GONZALO LEON DPT [address], [place], [address], [place] [facility] 09/15/2023 16:28:02 09/16/19 24 99383: Neuromuscular Re-Education cancelled CESILIA REYEST [address], [place], [address], [place] [facility] 09/15/2023 16:28:02 09/16/19 24 01308: Manual Therapy cancelled GONZALO LEON DPT [address], [place], [address], [place] [facility] 09/15/2023 16:28:40 09/09/19 24 86143: Self Care/Home Management Training completed GONZALO LEON DPT [address], [place], [address], [place] [facility] 09/09/2023 17:09:25 09/09/19 24 54408: Therapeutic Exercise completed GONZALO LEON DPT [address], [place], [address], [place] [facility] 09/09/2023 16:51:57 09/09/19 24 79942: Neuromuscular Re-Education completed GONZALO LEON DPT [address], [place], [address], [place] [facility] 09/09/2023 16:51:59 09/09/19 24 08736: Manual Therapy completed GONZALO LEON DPT [address], [place], [address], [place] [facility] 09/09/2023 17:09:12 09/02/19 24 Trigger point injection completed ANTWON JACKSON BDS,MS [address], [place], [address], [place] [facility] 09/05/2023 13:07:17 09/02/19 24 44469: Therapeutic Exercise completed GONZALO LEON DPT [address], [place], [address], [facility] 09/02/2023 16:40:27 09/02/19 24 94571: Neuromuscular Re-Education completed GONZALO LEON DPT [address], [place], [address], [facility] 09/02/2023 16:40:27 09/02/19 24 32389: Manual Therapy completed GONZALO LEON DPT [address], [place], [address], [facility] 09/02/2023 16:41:10 08/26/19 24 11752: Self Care/Home Management Training cancelled GONZALO LEON DPT [address], [place], [address], [facility] 08/26/2023 11:12:04 08/26/19 24 92787: Therapeutic Exercise cancelled GONZALO LEON DPT [address], [place], [address], [facility] 08/26/2023 11:12:04 08/26/19 24 37858: Neuromuscular Re-Education cancelled GONZALO LEON, CESILIAT [address], [place], [address], [facility] 08/26/2023 11:12:04 08/26/19 24 76662: Manual Therapy cancelled GONZALO LEON DPT [address], [place], [address], [facility] 08/26/2023 11:12:04 08/26/19 24 44509: Therapeutic Activities cancelled CESILIA REYEST [address], [place], [address], [facility] 08/26/2023 11:12:04 08/19/19 24 19491: Therapeutic Exercise completed GONZALO LEON DPT [address], [place], [address], [facility] 08/19/2023 16:46:44 08/19/19 78497: Neuromuscular Re-Education completed GONZALO LEON DPT [address], [place], [address], [facility] 08/19/2023 16:47:50 08/19/19 72447: Manual Therapy completed GONZALO LEON DPT [address], [place], [address], [facility] 08/19/2023 16:47:52 08/12/19 81294 - PT Eval Moderate Complexity completed GONZALO LEON DPT [address], [place], [address], [facility] 08/12/2023 17:06:13 08/12/19 24 32739: Self Care/Home Management Training completed GONZALO LEON DPT [address], [place], [address], [facility] 08/12/2023 17:05:25 08/12/19 24 98804: Therapeutic Exercise completed GONZALO LEON DPT [address], [place], [address], [facility] 08/12/2023 17:06:04 08/12/19 24 82930: Neuromuscular Re-Education completed GONZALO LEON DPT [address], [place], [address], [facility] 08/12/2023 17:05:31 08/12/19 34395: Manual Therapy completed GONZALO LEON DPT [address], [place], [address], [facility] 08/12/2023 17:05:58 08/12/19 24 Trigger point injection completed ANTWON JACKSON BDS,MS [address], [place], [address], [facility] 08/14/2023 11:46:33 08/01/[address] TMJ completed Maryse Peng [facility] 08/01/2023 09:33:39 07/30/19 24 Trigger point injection completed KAITLIN CANTUS,MS [address], [place], [address], [facility] 08/03/2023 13:10:15 07/08/19 24 Trigger point injection completed KAITLIN CANTUS,MS [address], [place], [address], [facility] 07/09/2023 09:48:37 06/17/19 24 Trigger point injection completed KAITLIN CANTUS,MS [address], [place], [address], [facility] 06/19/2023 12:15:19 Imaging Results None recorded. Procedure Notes None recorded. Medical Equipment None Reported. Allergies Allergen ID Allergen Name Allergen Category Reaction Reaction Severity Criticality Documentation Date Start Date Code Code System Note Provider Name and Address Organization Details Recorded Time 07167 Macrobid medicatio n Not available Not available Not available 06/03/2023 51586 1 RxNorm Tanyakimi Qureshivinny gibson, [facility] 16:51:42 Medications [...] WEEK, TAKE AT BEDTIME WITH A SNACK 12/02 /2024 completed Not Available Not Available Not Available [...] Not Available Not Avai lable Not Available [id number] 100 gram-sod sulf 7.5 gram-NaCl-K Cl-ascorbat e-C [...] and Address Organization Details Last Updated DateTime 165.1 cm 23.3 kg/m2 68842.9 3 g 68 /min 140 mm[Hg] 100 mm[Hg] Maryse Peng [facility] 5 18:09:14 Social History Question Answer Notes LastModified by Organizat ion Details LastModified Time Tobacco Smoking Status Never Smoker Tanya gibson [facility] 06/03/2023 16:52:05 What Is Your Level Of Caffeine Consumption? Moderate [email or web address] Information not available 06/03/2023 What Type Of Diet Are You Following? REGULAR [email or web address] Information not available 06/03/2023 Do You Reside In Or Have You Traveled To An Area Where Ebola Virus Transmission Is Active? No [email or web address] Information not available 06/03/2023 What Is The Highest Grade Or Level Of School You Have Completed Or The Highest Degree You Have Received? AW20115-4 [email or web address] Information not available 06/03/2023 Marital Status [email or web address] Informatio n not available 06/03/2023 What Number Best Describes Your Pain On Average In The Past Week? (0=no Pain, 10=pain As Bad As You Can Imagine) 4 [email or web address] Information not available 06/03/2023 What Number Best Describes How, During The Past Week, Pain Has Interfered With Your Enjoyment Of Life? (0=does Not Interfere, 10= Completely Interferes) 3 [email or web address] Information not available 06/03/2023 What Number Best Describes How, During The Past Week, Pain Has Interfered With Your General Activity? (0=does Not Interfere, 10=completely Interferes) 2 [email or web address] Information not available 06/03/2023 How Many Children Do You Have? 3 [email or web address] Information not available 06/03/2023 What Is Your Relationship Status? [email or web address] Information not available 06/03/2023 How Many Years Have You Smoked Tobacco? 0 Information not available 06/03/2023 Sex: Unknown Functional Status Question Answer Note LastModified by Organizat ion Details LastModified Time Do you use any illicit or recreational drugs? No [email or web address] Information not available 06/03/2023 What is your level of alcohol consumption? None Information not available 06/03/2023 Are you currently employed? 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 Moderate [email or web address] Information not available 06/03/2023 Mental Status Question Answer Note LastModified by Organization D etails LastModified Time Do you feel stressed (tense, restless, nervous, or anxious, or unable to sleep at night)? [id number] [email or web address] Information not available 06/03/2023 Family History Relationship Description Onset Age of this Age Resolved Age Notes LastModified by Organization Details LastModified Time Mother Hypertensive disorder [email or web address] Not available 2023 16:51:47 Father Hypertensive disorder [email or web address] Not available 2023 16:51:47 Father Heart disease [email or web address] Not available 2023 16:51:47 Medical History Condition Response Other Y Migraines Y Anxiety Disorder Y Headaches Y Hypertension Y Gynecological HistoryNo gynecological history recorded. Obstetrics History GPAL:G 0 P 0 0 0 0 Past Encounters Encounter ID Performer Location Encounter Start Date Encounter Closed Date Diagnosis/Indication Diagnosis SNOMED-CT Code Diagnosis ICD10 Code Diagnosis Note [id number] SHABANA REYES [address] [place] [address] 06/29/2024 16:53:58 06/29/2024 18:21:27 Bilateral temporomandibular joint pain 0642879544 0573657 M26.623 Chronic te nsion-type headache 315689236 G44.229 Myofascial pain 50262946 9 M79.11 M79.12 Neck pain 27778815 M54.2 Migraine without aura 56 888711 G43.009 Articular disc disorder of temporomandibular joint 10000706 M26.632 [id number] ANTWON JACKSON BDS,MS Alondra e [address] [place] [address] 06/29/2024 16:54:35 06/29/2024 19:38:21 Arthritis of left temporomandibular joint 7657562438 1201814 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 Articular disc disorder of temporomandibular joint 96206934 M26.632 Left TMJ disc displaceme nt with reductionR ule out bilateral TMJ DJDRight ear schwannoma - previously diagnosed Myofascial pain 08325231 9 M79.11 M79.12 [employer] y muscles - flared. Chronic te nsion-type headache 765137849 G44.229 Neck pain 94229375 M54.2 Schwannoma 095180727 D36 .10 RIGHT EAR - previously diagnosed and monitored with yearly imagingSta ble Sleep related bruxism 27 8426630 G47.63 Health Concerns Section Related Observation LastModified by Organization Detai ls LastModified Time None Recorded Concern Status LastModified by Organization Details LastModified Time None Recorded Payers Encounter Date Sequence Insurance Name Policy Number Policy Silva Covered Member ID Silva Member ID Guarantor Name 06/29/2024 1 [facility] [id number] Pascale Abdi [id number] Pascale Abdi Notes Date Note Type Note [...] managed well with HEP provided at [facility]. Only 1 MARION over the past few weeks. Received TPI injection today with continued reduction in symptoms. Scans taken for potential new oral splint. Potential plan for Botox in a few week. Neck stretches have been doing well in managing symptoms. GONZALO SPICERIsaac, DPT [address] [facility] [address], [place], [address], [facility] 06/30/2024 15:43:19 [...] molars);headaches;ti nnitus(right ear) Prior Tests:panorex Prior Treatment:night order selector/oral appliance/splint Prior opiniondentist Patient presents today for [...] time. She has been working with care transition manager as well. She finds that helping the flare. Intraoral appliance - fits well and uses it regularly.PT exercises -regular.Pascale is recovering well from the neurosurgery. She has started back at work. No recent changes in health. ANTWON JACKSON BDS,MS [address] [facility] [address], [place], [address], [facility] 07/02/2024 07:15:52 OBGyn Episode No OBEpisode recorded.
--- OUTSIDE RECORDS SUMMARY | 2024-07-11 17:45 | XMS_ITS | Clinical Summary ---
Author Organization [facility] Address [address] [place] [address] Care Team Providers Care Air Press Operator Name Role Phone Juan Jose Mercer MD Primary Care Provider [phone] Allergies Active Allergy Reactions Criticality Noted Date [...] 4 Secondary adrenal insufficiency 10/03/2022 Overview (10/03/2022): [facility] Dr. Solano Pap smear for cervical [...] Type Department Care Team Description 06/24/2024 Telephone [place] [address] [place] [address] Juan Jose Mercer MD Medication Management (Patient is looking for a new prescription. ) 06/14/2024 Telephone [place] [address] [place] [address] Juan Jose Mercer MD Prior Authorization (phentermine-topiramat e 7.5-46 mg (Qsymia) 7.5-46 mg - EXCLUDED) 06/07/2024 Refill [place] [address] [place] [address] Juan Jose Mercer MD Refill Request (Qsymia) 05/16/2024 Refill [place] [address] [place] [address] Juan Jose Mercer MD Refill Request (Qsymia) 05/07/2024 Telephone [place] [address] [place] [address] Juan Jose Mercer MD Results 05/03/2024 3:25 PM CDT Office Visit [place] [phone] [place] [address] Juan Jose Mercer MD Urinary Problem (Possible uti symptoms x2 weeks ) 05/03/2024 Travel 05/01/2024 Refill [place] [id number] [place] [address] Tacho Goyal MD Refill Request (Hydrochlorothiazide) from [...] CDT Respiratory Rate 16 03/06/2024 7:04 PM BULB PLANTER Oxygen Saturation 96% 03/06/2024 7:04 PM BULB PLANTER Inhaled Oxygen Concentration - - Weight 67.2 kg (148 lb 1.6 oz) 05/03/2024 3:29 P M CDT Height 163.8 cm (5' 4.5) 12/23/2023 4:22 PM CDT Body Mass Index 25.03 12/23/2023 4:22 PM CDT Plan of Treatment Health Maintenance Due Date Last Done Comments Depression screening for age 12+ 1986 COVID-19 vaccine series ( season) 2023 11/26/2022, 05/03/2020, 04/05/2020 Mammogram for age 45-75 10/05/2024 10/06/19 24, 06/11/2022, 04/19/2021 Influenza Vaccine (Season Ended) 2024 [...] Date/Time Associated Diagnosis Comments URINALYSIS MACROSCOPIC - [facility] ONLY POC DIP ([facility]) Routine 05/03/2024 3:22 PM CDT Dysuria URINE CULTURE Routine 05/03/2024 3:21 PM CDT Dysuria URINALYSIS MICROSCOPIC Routine 05/03/2024 3:21 PM CDT Dysuria XR MAMMO ISAMAR BILAT DIAG ROSY 10/06/2023 2:27 PM CDT Mastitis COLONOSCOPY 01/15/2023 1:40 PM BULB PLANTER LC HIV-1/O/2, 4TH GENERATION Routine 10/16/2022 3:07 PM CDT Screening for HIV (human immunodeficiency virus) LC HCV ANTIBODY RFX TO QUANT PCR Routine 10/16/2022 3:07 PM CDT Need for hepatitis C screening test LIPID PANEL W REFLEX MEASURED LDL Routine 10/16/2022 3:07 PM CDT Screening cholesterol level PROCESS TANK TENDER THIN PREP PAP SCREEN IMAGED Routine 10/16/2022 2:55 PM CDT Cervical cancer screening from Last 3 Months or Most Recently Relevant to Health Maintenance Results * URINALYSIS MACROSCOPIC - [facility] ONLY POC DIP ([facility]) (05/03/2024 3:22 PM CDT) PH 6.0 5.0 - 8.0 [facility] SPECIFIC GRAVITY 1.010 1.001 - 1.035 [facility] GLUCOSE NEGATIVE NEGATIVE [facility] BILIRUBIN NEGATIVE NEGATIVE [facility] KETONES NEGATIVE NEGATIVE [facility] OCCULT BLOOD NEGATIVE NEGATIVE [facility] PROTEIN NEGATIVE NEGATIVE [facility] NITRITE NEGATIVE NEGATIVE [facility] LEUKOCYTE ESTERASE NEGATIVE NEGATIVE [facility] Urine URINE SPECIMEN / Unknown 05/03/2024 3:22 PM CDT 05/03/2024 3:23 PM CDT Juan Jose Mercer MD URINE Final Resul t Performing Organization Address City/[facility]/ZIP Co de Phone Number [facility] [address] [place] [address], [facility] [address] [place] [address] * URINALYSIS MICROSCOPIC (05/03/2024 3:21 PM CDT) RBC 0-2 0-2, None Seen /HPF 05/04/2024 12:30 AM CDT [facility] WBC 3-5 0-2, 3-5, None Seen /HPF 05/04/2024 12:30 AM CDT [facility] BACTERIA None Seen None Seen, Rare, Few Bacteria/ HPF 05/04/2024 12:30 AM CDT [facility] EPITHELIAL CELLS None Seen None Seen, Few Epi/HPF 05/04/2024 12:30 AM CDT [facility] HYALINE CASTS 0-2 0-2, 3-5 /LPF 05/04/2024 12:30 AM CDT [facility] Urine URINE SPECIMEN / Unknown Non-Blood / Unknown 05/03/2024 3:21 PM CDT 05/03/2024 3:21 PM CDT Juan Jose Mercer MD URINE Final Resul t [facility] [address] [place] [address], [place] * (ABNORMAL) URINE CULTURE (05/03/2024 3:21 PM CDT) CULTURE RESULT(A) 05/06/2024 7:08 AM CDT [facility] CULTURE 10,000-50,000 CFU/mL Escherichia coli 05/06/2024 7:08 AM CDT [facility] Urine URINE SPECIMEN / Unknown Non-Blood / Unknown 05/03/2024 3:21 PM CDT 05/03/2024 3:21 PM CDT Narrative Organism Antibiotic Method Susceptibility Escherichia coli TRIMETHOPRIM/SULF <=03/14: S Escherichia coli AMPICILLIN <=2: S Escherichia [...] Jose Mercer MD MICROBIOLOGY Final Resul t [facility] [address] [place] [address], * XR MAMMO ISAMAR BILAT DIAG (10/06/2023 [...] M.D. Diagnostic/Breast Radiologist [email or web address] / PATIENTS: You will also receive a [...] - Final * COLONOSCOPY (01/15/2023 1:40 PM BULB PLANTER) 01/15/2023 1:40 PM BULB PLANTER Narrative Transcriptions Lilli Davis DO - 01/15/2023 [...] adequate candidate for conscious sedation. The endoscope -[id number] was passed through the anus andadvanced to [...] Non Reactive 10/19/2022 11:08 AM CDT [facility] ([facility]) Blood BLOOD SPECIMEN / Unknown Venipuncture / Unknown 10/16/2022 3:07 PM CDT 10/16/2022 3:09 PM CDT [facility] ([facility]) - 10/19/2022 11:08 AM CDT Performed at: [address] [place] [id number] Chinchilla Machine Operator: Stephon Blas MD, Phone: [phone] Loli Nolen DO LABORATORY Final Result Performing Organization Address [facility]/ZIP Co de Phone Number [facility] TEST[facility] (CET) [address] [place] [address], * LC HIV-1/O/2, 4TH GENERATION (10/16/2022 3:07 PM CDT) HIV Scr 4th Gen Non Reactive Non Reactive 10/20/2022 8:[address] [facility] ([facility]) Comment: HIV Negative HIV-1/HIV-2 antibodies and HIV-1 p24 antigen were NOT detected. There is no laboratory evidence of HIV infection. Blood BLOOD SPECIMEN / Unknown Venipuncture / Unknown 10/16/2022 3:07 PM CDT 10/16/2022 3:09 PM CDT [facility] ([facility]) - 10/20/2022 8:36 AM CDT Performed at: [address] [place] [id number] Chinchilla Machine Operator: Stephon Blas MD, Phone: [phone] Loli Nolen DO LABORATORY Final Result Performing Organization Address City/[facility]/ZIP Co de Phone Number [facility] TEST[facility] (CET) [address] [place] [address], * LIPID PANEL W REFLEX MEASURED LDL (10/16/2022 3:07 PM CDT) CHOLESTEROL,TOTAL 178 100 - 199 mg/dL 10/17/2022 5:12 PM CDT [facility] Comment: Cholesterol, Total Reference Ranges Desirable <200 mg/dL Borderline 200-239 mg/dL High >=240 mg/dL TRIGLYCERIDES 140 <150 mg/dL 10/17/2022 5:12 PM CDT [facility] HDL CHOLESTEROL 47 >40 mg/dL 5:12 PM CDT [facility] NON-HDL CHOLESTEROL 131 <145 mg/dl 10/17/2022 5:12 PM CDT [facility] CHOL/HDL RATIO 3.79 <4.50 10/17/2022 5:12 PM CDT [facility] LDL CHOLESTEROL 103 <=130 mg/dL 10/17/2022 5:12 PM CDT [facility] VLDL CHOLESTEROL 28 <=30 mg/dL 10/17/2022 5:12 PM CDT [facility] PROVIDER ORDERED STATUS RANDOM 10/17/2022 5:12 PM CDT [facility] Blood BLOOD SPECIMEN / Unknown Venipuncture / Unknown 10/16/2022 3:07 PM CDT 10/16/2022 3:09 PM CDT Loli Nolen DO CHEMISTRY Final Result [facility] [address] [place] [address], * PROCESS TANK TENDER THIN PREP PAP SCREEN IMAGED (10/16/2022 2:55 PM CDT) Case Report Gynecologic Cytology Report Case: [id number] Authorizing Provider: Loli Nolen DO Collected: 10/16/2022 1455 Ordering Location: [facility] Received: 10/16/2022 1514 Clinic First Screen: Faviola Cheng Specimen: PROCESS TANK TENDER ThinPrep Vial Screening, Cervical 10/22/2022 4:08 PM CDT [facility] INTERPRETATION/ RESULT NEGATIVE FOR INTRAEPITHELIAL LESION OR MALIGNANCY (NIL) (none) 10/22/2022 4:08 PM CDT [facility] at 1608 CDT SPECIMEN ADEQUACY Satisfactory for evaluation Endocervical component present 10/22/2022 4:08 PM CDT [facility] HPV REQUEST HPV and PAP 10/22/2022 4:08 PM CDT [facility] Date of LMP N/A (endometrial ablation) 10/22/2022 4:08 PM CDT [facility] Last Pap Date 12/22/17 10/22/2022 4:08 PM CDT [facility] Last Pap Result NIL 4:08 PM CDT [facility] Abnormal Pap or [place] Bx in last 5 years No 10/22/2022 4:08 PM CDT [facility] Menstrual Status Irregular Periods 10/22/2022 4:08 PM CDT [facility] [place] Bx Done Today No 10/22/2022 4:08 PM CDT [facility] Additional Information None given 10/22/2022 4:08 PM CDT [facility] Comment: Cytology is screened at [facility] - [address], [place] [address] and [facility] - [address] [place] [address] and [facility] - [address] [facility] [place] [address] Interpreted at [facility] - [address], [place] [address] Automated Review Successful 10/22/2022 4:08 PM CDT [facility] Comment:Specimen processed s uccessfully by automated cut tobacco bulker device, ThinPrep Imaging System, [employer] ANCILLARY TESTING PROCESS TANK TENDER HPV Ordered, Please see separate report 10/22/2022 4:08 PM CDT [facility] Note The pap test is a [...] and malignant lesions. 10/22/2022 4:08 PM CDT [facility] Other (Cervical) Non-Blood / Unknown 10/16/2022 2:55 PM CDT 10/16/2022 3:14 PM CDT us Loli Nolen DO PATHOLOGY/CYTOLOGY Final Resu lt [facility] [address] [place] [address], [place] from Last 3 Months or Most Recently Relevant to Health Maintenance Insurance [facility] Advance Directives * Full Code (Latest Code Status on File) Date Activated Date Inactivated Comments 01/15/2023 12:36 PM 01/15/2023 5:25 PM Question Answer Comments Code Status Discussion: Discussed * Full Code Date Activated Date Inactivated Comments 02/14/2022 9:34 AM 02/14/2022 6:13 PM Question Answer Comments Code Status Discussion: Reviewed Preferences Care Teams Air Press Operator Relationship Specialty [place] [address] [place] [address] PCP - General Family Practice 08/15/23
--- OUTSIDE RECORDS SUMMARY | 2024-07-11 17:45 | XMS_ITS | Data Portability ---
Author Organization [place] [facility] Address [address] [place] [address] Care Team Providers Care Cook Chill Technician Name Role Phone RUTHIE PEREZ Primary Care Provider Assessment Encounter Date Assessment Date Assessment LastModified by Organization Details LastModified Time 01/30/2024 01/30/2024 This visit was performed via Choosly device with a total face to face time of 13 minutes. This patient is being seen today for a [facility] appointment after hospitalization. Reason for admission: prolactinoma I have reviewed the external medical records: [facility] Specifically, the data/test result/record I [...] [facility], or in the ER for new or worsening symptoms. The patient verbalizes understanding and agrees with the plan. Notes from the visit were sent to the patient's PCP. Time On Scene with Patient: 01:03:23 [email or web address] Not available 01/30/2024 18:16:29 Plan of Treatment [...] By Organization Details Last Modified Time 01/30/2024 [id number] - YOU WERE SEEN TODAY FOR HOSPITAL DISCHARGE FOLLOW UP - CONTINUE YOUR MEDICATIONS PRESCRIBED - BE SURE TO FOLLOW UP WITH PRIMARY CARE AND SPECIALISTS SCHEDULED - MONITOR SYMPTOMS CLOSELY It was great to see you today! Thank you for letting [facility] follow up with you after your hospitalization today. If you are noticing a change in your symptoms between the hours of 8am and 9pm, and cannot follow up with your PCP please contact [facility] for re-evaluation. Please present to the nearest EMERGENCY ROOM if you are experiencing any of the following: - worsening pain - fever above 101.0F despite using Tylenol (acetaminophen) - shortness of breath - chest pain or pressure - any symptom or concern that requires immediate evaluation [email or web address] Not available 01/30/2024 16:32:55 Reason for Referral None Reported. Procedures Surgical History Date Name Laterality Status Provider Name and Address Organization Details Recorded Time 01/30/20 24 Medication Review completed Lilli Stanford NP [address] ,[address], [place], [address], [place] [facility] 01/30/2024 18:14:00 section completed Brittany Serna [place] [facility] 01/30/2024 16:27:15 hernia repair completed Brittany Serna [place] [facility] 01/30/2024 16:27:27 ligation of fallopian tube completed Brittany Serna [place] [facility] 01/30/2024 16:27:34 excision of benign neoplasm completed Brittany Serna [place] [facility] 01/30/2024 16:28:36 operation on extraocular muscle completed Brittany Serna [place] [facility] 01/30/2024 16:31:45 Imaging Results None recorded. Procedure Notes None recorded. Medical Equipment None Reported. Allergies Allergen ID Allergen Name Allergen Category Reaction Reaction Severity Criticality Documentation Date Start Date Code Code System Note Provider Name and Address Organization Details Recorded Time [id number] nitrofura ntoin medicatio n rash mild low [...] mm[Hg] 122 mm[Hg] 80 mm[Hg] Not Available [facility] 16:39:39 Social History Question Answer Notes LastModified by Organizat ion Details LastModified Time Tobacco Smoking Status Former Smoker Brittany Daphne gibson, [place] - [facility] 01/30/2024 16:25:25 Do You Have An Advance Directive? Yes [email or web address] Information n ot available 01/30/2024 Is Blood Transfusion Acceptable In An Emergency? Yes [email or web address] Information not available 01/30/2024 What Is Your Code Status? Full Code Information not available 01/30/2024 Do You Have A Directive To Physicians? Yes [email or web address] Information not available 01/30/2024 Within The Past 12 Months, Has It Happened That The Food You Bought Just Didn't Last And You Didn't Have Money To Get More. Never True [email or web address] Information not available 01/30/2024 Within The Past 12 Months, Have You Worried That Your Food Would Run Out Before You Got Money To Buy More. Never True [email or web address] Information n ot available 01/30/2024 Fall Risk: Do You Feel Unsteady When Standing Or Walking? No [email or web address] Information not available 01/30/2024 We Know That How And When People Interact With Friends And Family Can Be Very Different From Person To Person. How Often Do You Have The Opportunity To See Or Talk To People That You Care About And Feel Close To? (Ex: Talking To Friends On The Phone Or Visiting Friends Or Family Or Going To Temple Or Club Meetings) More Than 3 Times A Week Information not available 01/30/2024 Excessive Alcohol Or Drug Use No Information not available 01/30/2024 Does This Patient Have A PCP? Yes Information not available 01/30/2024 Has The Patient Seen Their PCP In The Past 6 Months? Yes [email or web address] Information n ot available 01/30/2024 Is This Patient In Hospice? No [email or web address] Information not available 01/30/2024 ADL: Do You Need Help With Daily Activities Such As Bathing, Preparing Meals, Dressing, Or Cleaning? No [email or web address] Information not available 01/30/2024 Social Support: Do You Feel Safe? Yes [email or web address] Information not available 01/30/2024 In The Past 12 Months, Has Lack Of Transportation Kept You From Medical Appointments? No [email or web address] Information not available 01/30/2024 In The Past 12 Months, Has Lack Of Transportation Kept You From Non-medical Needs? No [email or web address] Information n ot available 01/30/2024 What Is Your Housing Situation Today? I Have Housing [email or web address] Information not available 01/30/2024 Do You Have A Medical Power Of Tour Counselor? No Information not available 01/30/2024 Do You Have An Out Of Hospital DNR? No [email or web address] Information not available 01/30/2024 Sex: Unknown Functional Status Question Answer Note LastModified by Organizat ion Details LastModified Time Do you use any illicit or recreational drugs? No [email or web address] Information not available 01/30/2024 Do you or have you ever used any other forms of tobacco or nicotine? No [email or web address] Information not available 01/30/2024 What is your level of alcohol consumption? None [email or web address] Information not available 01/30/2024 Mental Status None recorded. Family History Relationship Description Onset Age of this Age Resolved Age Notes LastModified by Organization Details LastModified Time Father Hypertensive disorder [email or web address] Not available 2023 16:23:52 Father Prediabetes Not availa ble 01/30/2024 16:24:02 Father Congestive heart failure Not available 2023 16:24:11 Brother History of heart disorder [email or web address] Not available 2023 16:25:07 Medical History Condition [...] SNOMED-CT Code Diagnosis ICD10 Code Diagnosis Note [id number] Lilli Stanford NP [facility] [address] [place] [address] 01/30/2024 16:03:40 01/31/2024 12:04:48 Prolactinoma 937171048 D35.2 Status of condition: {{Acute Ex acerbation [...] None Recorded Advance Directives Directive Y: Payers Insurance Date Sequence Insurance Name Policy Number Policy Silva Covered Member ID Silva Member ID Guarantor Name 02/09/2024 1 [place] [id number] Pascale Abdi [id number] Pascale Abdi 02/09/2024 1 [facility] [facility] PLAN (HMO) [id number] Pascale Abdi [id number] Pascale Abdi Notes Date Note Type Note Provider Name and Address Organization Details Recorded Time 4 text/html This patient being seen for a [facility] appointment following hospitalization at:{{ [facility]}}. 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 While in the hospital, the patient had a tumor removedNewly prescribed medications: hydrocortisone dose increased Since discharge, the patient has been resting and trying to prevent any sort of pressure in her head, pt reports headaches, loss of taste, stuffy, fatigued Lilli Stanford, JAC [address] ,[address], [place], [address], [place] [facility] 01/30/2024 18:17:17 OBGyn Episode No OBEpisode recorded.
--- OUTSIDE RECORDS SUMMARY | 2024-07-11 17:46 | XMS_ITS | Clinical Summary ---
Author Organization [facility] Address [address] [place] [address] Care Team Providers Care Emt Driver Name Role Phone Elsewhere, Pcp Primary Care Provider Unavailabl e Source Comments Patient records contain information from all sites at [facility]. For routine questions regarding patient records, call [phone] during business hours, M-F 8:00 AM - 5:00 PM Central Time. Record requests for emergency care only can be directed to [phone] at any time.[facility] Allergies Active Allergy Reactions Criticality [...] or vomiting. 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 Solano Chronic Tension Type Headache Not Intractable Deficiency Vitamin D 01/07/2018 Impaired Fasting Glucose 01/06/2018 Anxiety Disorder Unspecified 03/09/2012 Migraine Without Aura Not In tractable Without Status Migrainosus 03/09/2012 Overview (12/28/2023): Rarely with aura Encounters Date Type Department Care Team Description 05/16/2024 Refill Division of Endocrinology in [place], [place] [address] [place] [phone] Gia Solano M.D. Med Refill 04/28/2024 Clinical Communication Division of Endocrinology in [address] [phone] Cecilia Lyon R.N. 04/27/2024 11:45 AM TOOTH INSPECTOR Office Visit Department of Neurologic Surgery in [place], [place] [address] [place] [phone] Zan Schmidt M.D. Natt, Neena, M.D. Prolactinoma (HCC) (Primary Dx); Neuroma Acoustic (HCC) 04/27/2024 10:30 AM TOOTH INSPECTOR Office Visit Division of Endocrinology in [place], [place] [address] [place] [phone] Gia Solano M.D. Prolactinoma (HCC) 04/27/2024 6:01 AM TOOTH INSPECTOR - 04/27/2024 11:59 PM TOOTH INSPECTOR Hospital Encounter Department of Radiology, [facility] in [place], [place] [address] [place] [phone] Zan Schmidt M.D. Prolactinoma (HCC) Discharge Disposition: Home or Self Care 04/23/2024 4:00 PM TOOTH INSPECTOR Clinical Communication Virtual Review in [place], [place] [address] [place] [phone] Pre-visit Intake from Last 3 Months Immunizations Immunization Administration Dates Next Due Influenza, Injectable, Mdck, Preservative Free, Quadrivalent 12/05/2019 Influenza, Injectable, Quadrivalent 11/26/2022 Influenza, Unspecified 11/24/2013,12/26/2011 Tdap 10/16/2022 influenza trivalent vaccine (6 months and older)(PF) 01/27/2024(Deferred: Patient Refused) influenza vaccine QV(FLUBLOK ) (18 years or older) (PF) 10/24/2017 Family History Medical History Relation Name Comments Hypertension Brother Haroon Sudhakar Defibrillator Father Abelardo De La Fuente Diabetes Father Abelardo Sudhakar Heart failure Father Abelardo De La Fuente [...] drink = 0.6 oz pur e alcohol) [facility] Utilities Answer Date Recorded In the past 12 months has e [employer], gas, oil, or water [employer] threatened to shut off services in your [...] 05/28/2022 How often do you attend chur ch or sabianism services? More than 4 times per year 05/28/2022 Do you belong to any clubs o r organizations such as worship groups, unions, fraternal or athletic groups, or [...] and heating? Not hard at all 05/28/2022 [facility] [place] of Occupat ional Health - Occupational Stress [...] your living situation today? I have a [facility] place to live 01/26/2024 Education Answer Date Recorded What is the highest level of school you have completed or the highest degree you have received? 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) 05/31/2021 Comments No Sex and Gender Information Value Date Recorded Sex Assigned at Female 05/31/2021 8:48 AM CDT Legal Sex Female 9:24 PM CDT Gender Identity Female 05/31/2021 8:48 AM CDT Sexual Orientation Straight 05/31/2021 8: 48 AM CDT Last Filed Vital Signs Vital Sign Reading Time Taken Comments Blood Pressure 130/93 04/27/2024 10:10 AM TOOTH INSPECTOR Pulse 86 04/27/2024 10:10 AM TOOTH INSPECTOR Temperature 36.8 C (98.2 F) 01/27/2024 9:00 AM TOOTH INSPECTOR Respiratory Rate 16 01/27/2024 9:00 AM TOOTH INSPECTOR Oxygen Saturation 98% 01/27/2024 9:00 AM TOOTH INSPECTOR Inhaled Oxygen Concentration - - Weight 68.6 kg (151 lb 3.8 oz) 04/27/2024 10:10 AM TOOTH INSPECTOR Height 167.1 cm (5' 5.79) 04/27/2024 10:[address] Body Mass Index 24.57 04/27/2024 10:10 AM TOOTH INSPECTOR Plan of Treatment Health Maintenance Due Date Last Done Comments CT Colonography 1974 Cervical/Vaginal Cancer Screening 1974 Cologuard 1974 FIT 1974 HIV Screening 1974 Hepatitis C Screening 1974 Hepatitis B Vaccines (1 of 3 - 19+ 3-dose series) 1993 COVID-19 Vaccine ( season) 2023 11/26/2022, 05/03/2020, 04/05/2020 Influenza Vaccine (#1) 2023 , 12/05/2019, 10/24/2017, Additional history exists Depression Screening (Annual PHQ-2) 02/25/2024 Pneumococcal vaccine (50+ years) (1 of 1 - PCV) 2024 Zoster Vaccines (1 of 2) 2024 Office Visit for Blood Pressure Check / [...] this topic Medical Devices Implanted Type Area Community Administrator Device Identifier Shelf Expiration Date Model / Serial / Lot Imaging Marker Imaging Marker Right: Breast Mesh Or Patch Mesh or Patch Abdomen Procedures Procedure Name Priority Date/Time Associated Diagnosis Comments CORTISOL, S Routine 04/27/2024 7:59 AM TOOTH INSPECTOR Prolactinoma (HCC) CREATININE WITH EGFR, S/P Routine 04/27/2024 7:59 AM TOOTH INSPECTOR Prolactinoma (HCC) T4 (THYROXINE), FREE, S Routine 04/27/2024 7:59 AM TOOTH INSPECTOR Prolactinoma (HCC) PROLACTIN, S Routine 04/27/2024 7:59 AM TOOTH INSPECTOR Prolactinoma (HCC) SODIUM, S/P Routine 04/27/2024 7:59 AM TOOTH INSPECTOR Prolactinoma (HCC) MR PITUITARY WITHOUT AND WITH IV CONTRAST RAD - Routine (most inpatients and all outpatients) 04/27/2024 7:32 AM TOOTH INSPECTOR Prolactinoma (HCC) BASIC METABOLIC PANEL, S/P Timed 01/27/2024 6:41 AM TOOTH INSPECTOR OUTSIDE MG MAMMOGRAM Routine 05/09/2021 2:20 PM CDT from Last 3 Months or Most Recently Relevant to Health Maintenance Results * Prolactin (04/27/2024 7:59 AM TOOTH INSPECTOR) Prolactin Total 14.7 4.8 - 23.3 ng/mL 04/27/2024 11:16 AM TOOTH INSPECTOR DTL Comment: ----ADDITIONAL INFORMATION---- The testing method is an electrochemiluminescence assay manufactured by [employer] and performed on the Sherri system. Values obtained with different assay methods or kits may be different and cannot be used interchangeably. Test results cannot be interpreted as absolute evidence for the presence or absence of malignant disease. Blood (Blood, Venous) 04/27/2024 7:59 AM TOOTH INSPECTOR 04/27/2024 8:39 AM TOOTH INSPECTOR us Gia Solano M.D. LAB BLOOD ADD-ON Final Result [facility] [address] [place] [address], [facility] DTL [facility] [address] [place] [address] * T4 (Thyroxine), Free (04/27/2024 7:59 AM TOOTH INSPECTOR) T4 (Thyroxine), Free, S 1.1 0.9 - 1.7 ng/dL 04/27/2024 11:16 AM TOOTH INSPECTOR DTL Blood (Blood, Venous) 04/27/2024 7:59 AM TOOTH INSPECTOR 04/27/2024 8:39 AM TOOTH INSPECTOR us Gia Solano M.D. LAB BLOOD ADD-ON Final Result Performing Organization Address City/[facility]/ZIP Co de Phone Number [facility] [address] [place] [address], [facility] [address] [place] [address] * Sodium (04/27/2024 7:59 AM TOOTH INSPECTOR) Sodium, S 141 135 - 145 mmol/L 04/27/2024 11:16 AM TOOTH INSPECTOR DTL Blood (Blood, Venous) 04/27/2024 7:59 AM TOOTH INSPECTOR 04/27/2024 8:39 AM TOOTH INSPECTOR Gia Solano M.D. LAB BLOOD ADD-ON Final Result Performing Organization Address [facility] Co de Phone Number [facility] [address] [place] [address], [facility] [address] [place] [address] * Creatinine with Estimated GFR (04/27/2024 7:59 AM TOOTH INSPECTOR) Creatinine 0.98 0.59 - 1.04 mg/dL 04/27/2024 11:16 AM TOOTH INSPECTOR DTL Estimated GFR (eGFR) 71 >=60 mL/min/BSA 04/27/2024 11:16 AM TOOTH INSPECTOR DTL Comment: Estimated GFR calculated using the 2020 CKD_EPI creatinine equation. Blood (Blood, Venous) 04/27/2024 7:59 AM TOOTH INSPECTOR 04/27/2024 8:39 AM TOOTH INSPECTOR us Gia Solano M.D. LAB BLOOD ADD-ON Final Result Performing Organization Address [facility]/ZIP Co de Phone Number [facility] [address] [place] [address], [facility] [address] [place] [address] * Cortisol (04/27/2024 7:59 AM TOOTH INSPECTOR) Cortisol AM Result 5.3 4.8 - 20 mcg/dL 04/27/2024 11:16 AM TOOTH INSPECTOR DTL Blood (Blood, Venous) 04/27/2024 7:59 AM TOOTH INSPECTOR 04/27/2024 8:39 AM TOOTH INSPECTOR us Gia Solano M.D. LAB BLOOD ADD-ON Final Result [facility] [address] [place] [address], [place] [facility] [address] [place] [address] * MR Pituitary without and with IV Contrast (04/27/2024 7:32 AM TOOTH INSPECTOR) Anatomical Region Laterality Modality Head, Neuroradiology RST LOS , Neuroradiology ARZ LOS, Neuroradiology FLA LOS N/A Magnetic Resonance Impressions 04/27/2024 8:50 AM TOOTH INSPECTOR 1. Interval postoperative changes of pituitary microadenoma resection without evidence of residual/recurrent disease. 2. 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 us Zan Schmidt M.D. [facility] MRI PROCEDURES Final Result * (ABNORMAL) Basic Metabolic Panel (01/27/2024 6:41 AM TOOTH INSPECTOR) Potassium, S 4.0 3.6 - 5.2 mmol/L 01/27/2024 8:23 AM TOOTH INSPECTOR DTL Sodium, S 135 135 - 145 mmol/L 01/27/2024 8:23 AM TOOTH INSPECTOR DTL Chloride, S 100 98 - 107 mmol/L 01/27/2024 8:23 AM TOOTH INSPECTOR DTL Bicarbonate, S 25 22 - 29 mmol/L 01/27/2024 8:23 AM TOOTH INSPECTOR DTL Anion Gap 10 7 - 15 01/27/2024 8:23 AM TOOTH INSPECTOR DTL BUN (Blood Urea Nitrogen), S 9 6 - 21 mg/dL 01/27/2024 8:23 AM TOOTH INSPECTOR DTL Creatinine 0.70 0.59 - 1.04 mg/dL 01/27/2024 8:23 AM TOOTH INSPECTOR DTL Estimated GFR (eGFR) >90 >=60 mL/min/BSA 01/27/2024 8:23 AM TOOTH INSPECTOR DTL Comment: Estimated GFR calculated using the 2020 CKD_EPI creatinine equation. Calcium, Total, S 8.9 8.6 - 10.0 mg/dL 01/27/2024 8:23 AM TOOTH INSPECTOR DTL Glucose, S 160(H) 70 - 140 mg/dL 01/27/2024 8:23 AM TOOTH INSPECTOR DTL Blood (Blood, Venous) 01/27/2024 6:41 AM TOOTH INSPECTOR 01/27/2024 7:57 AM TOOTH INSPECTOR Ila Sneed M.D., Ph.D. LAB BLOOD ADD-ON Fi nal Result Performing Organization Address City/[facility] Co de Phone Number [facility] [address] [place] [address], [place] DTL [facility] [address] [place] [address] * XR MAMMO POST CLIP PLCMT RT-Outside [...] overread is required please follow defined workflow. Provider Not In System IMG BI PROCEDURES Final R esult Performing Organization Address City/[facility] Co de Phone Number [facility] NA from Last 3 Months or Most Recently Relevant to Health Maintenance Insurance [facility] Advance Directives For more information, please contact: [phone] * Full Code (Latest Code Status on File) Date Activated Date Inactivated Comments 01/26/2024 6:48 PM 01/27/2024 3:56 PM Question Answer Comments Full Code: Not Discussed Due to: Patient not available * Full Code Date Activated Date Inactivated Comments 01/26/2024 11:42 AM 01/26/2024 6:48 PM Question Answer Comments Full Code: Not Discussed Due to: Patient not available Care Teams Emt Driver Relationship Specialty Start Date End Date Elsewhere, Pcp PCP - General Internal Medicine 04/23/24
--- OUTSIDE RECORDS SUMMARY | 2024-07-11 17:46 | XMS_ITS | Encounter Summary ---
Author Organization [facility] Address [address] [place] [id number] Care Team Providers Care Poultry Slaughterer Name Role Phone Elsewhere, Pcp Primary Care Provider Unavailabl e Reason for Visit * Reason Comments Med Refill Encounter Details Date Type Department Care Team (Late st Contact Info) Description 05/16/2024 Refill Division of Endocrinology in [place], [place] [address] [place] [phone] Gia Solano M.D. [address] [place] [phone] Med Refill Social History Tobacco Use Types Packs/Day Years Used Date Smoking Tobacco: Never Passive Smoke Exposure: Never Smokeless Tobacco: Never Alcohol Use Standard Drinks/Week Comments Never 0 (1 standard drink = 0.6 oz pur e alcohol) [facility] Utilities Answer Date Recorded In the past 12 months has [facility] [employer], gas, oil, or water [employer] threatened to shut off services in your [...] How often do you attend chur or mandaen services? More than 4 times per year 05/28/2022 Do you belong to any clubs o r organizations such as presybeterian groups, unions, fraternal or athletic groups, or [...] and heating? Not hard at all 05/28/2022 [facility] of Occupat ionnm Health - Occupational Stress Questionnaire Answer Date [...] your living situation today? I have a [facility] place to live 01/26/2024 Education Answer Date Recorded What is the highest level of school you have completed or the highest degree you have received? 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
== END 2024-07-11 12:54 | disposition home or self-care (01) ==
PROVIDERS: Emergency Provider Emergency Medicine; PCP Student in an Organized Health Care Education/Training Program
DX: R11.2 Nausea with vomiting, unspecified (principal); R10.9 Unspecified abdominal pain
CPT/HCPCS: 36415; 80048; 80076; 81001; 83605; 83690; 83735; 85025; 86140; 87086; 96365; 96375; 99284; J1885; J2765; J7030